=== PATIENT | male | born 1975 | race Caucasian/White ===

== ENCOUNTER 2023-07-24 03:56 | Emergency (ER) | payer OTHER ==
[~2023-07-24] VITALS: Ht 177.8 cm; Wt 130.0 kg
[~2023-07-24 03:56] MED LIST: GUAIATUSSIN AC10 ML PO; IBUPROFEN400 MG PO; IBUPROFEN600 MG PO
[2023-07-24 04:12] LABS: BASOPHILS 1.1 % (0-2); EOSINOPHILS 2.6 % (0-6); HEMATOCRIT 44.8 % (35.0-50.0); HEMOGLOBIN 13.9 g/dL (12.0-18.0); MCH 22.2 (27-36); MCV 71.6 fl (81-99); MONOCYTES 0.9 % (0-12); NEUTROPHILS 49.4 % (39-80); PLATELET COUNT 291 K/uL (140-440); RBC 6.27 M/ul (4.3-5.7); RDW 16.6 (10.5-15.0)
[2023-07-24 04:32] LABS: ALBUMIN 4.1 g/dL (3.4-5.0); ALBUMIN/GLOBULIN RATIO 0.82 (1.1-2.4); BILIRUBIN, TOTAL 0.4 ng/dL (0.2-1.0); BUN/CREATININE RATIO 13.51 (6.0-28.6); CALCIUM 9.1 mg/dL (8.5-10.1); CREATININE, SERUM 1.11 mg/dL (0.70-1.30); PROTEIN, TOTAL 9.1 g/dL (6.4-8.2)
[2023-07-24 04:56] LABS: INFLUENZA B NAA NEGATIVE (NEGATIVE); RESPIRATORY SYNCYTIAL VIR NAA NEGATIVE (NEGATIVE)
[2023-07-24] MEDS ORDERED: METOPROLOL TARTRATE 5 MG/5 ML VIAL IV ONE ×2 (06:00→06:15)
[2023-07-24] MEDS ORDERED: METOPROLOL SUCC25 MG PO (06:18)
[2023-07-24 06:37] VITALS: BP 113/68
--- NOTE | 2023-07-24 14:07 | EKG ---
[facility] [address] [facility] [address] [facility] [place] [address] Signed Sinus tachycardia Nonspecific ST abnormality Abnormal ECG When compared with ECG of 31-JAN-2016 07:05, Vent. rate has increased BY [address] now depressed in Lateral leads Confirmed by Jessika Aguila ([id number]) on 07/24/2023 2:07:13 PM Electronically Signed By: JESSIKA AGUILA MD 07/24/23 1407 PATIENT NAME: NANCY HI MATTHEW Electrocardiogram DATE OF : 75 PHYSICIAN: JESSIKA AGUILA MD REPORT #: [id number] REPORT IS CONFIDENTIAL AND NOT TO BE RELEASED WITHOUT AUTHORIZATION
== END 2023-07-24 06:37 | disposition home or self-care (01) ==
LOC: ED 03:56
PROVIDERS: Family Medicine
DX: R00.2 Palpitations (principal); R00.0 Tachycardia, unspecified; F17.200 Nicotine dependence, unspecified, uncomplicated; Z11.52 Encounter for screening for COVID-19
CPT/HCPCS: 36415; 71045; 71260; 80053; 84443; 84484; 85025; 85379; 87502; 93005; 93010; 99285-25; Q9967; U0002

== ENCOUNTER 2023-08-15 20:32 | Inpatient (IN) | payer OTHER ==
[~2023-08-15] VITALS: Ht 177.8 cm; Wt 128.6 kg
[~2023-08-15 20:32] MED LIST changes: +METOPROLOL SUCC25 MG PO
--- OUTSIDE RECORDS SUMMARY | 2023-08-15 20:39 | XMS ---
PreManage Notification: NANCY HI Security [employer] Events No recent Security Events currently on file CRITERIA MET - [facility] - 2 Visits in 30 Days CARE PROVIDERS LELE PALUMBO [facility] Current PHONE: Unknown Jimbo has no Care Guidelines for this patient. E.Gabriella VISIT COUNT (12 MO.) 2 [facility] TOTAL 2 NOTE: Visits indicate total known visits. ED/UCC VISIT TRACKING (12 MO.) 08/15/2023 20:33 [facility] TYPE: Emergency COMPLAINT: - ABDOMINAL PAIN 07/24/2023 03:56 [facility] TYPE: Emergency COMPLAINT: - SOB DIAGNOSES: - Encounter for screening for COVID-19 - Nicotine dependence, unspecified, uncomplicated - Palpitations - Shortness of breath - Tachycardia, unspecified INPATIENT VISIT TRACKING (12 MO.) No inpatient visits to display in this time frame [email or web address]
[2023-08-15 20:56] LABS: BASOPHILS 0.7 % (0-2); HEMATOCRIT 42.1 % (35.0-50.0); HEMOGLOBIN 13.2 g/dL (12.0-18.0); MCH 21.9 (27-36); MCHC 31.3 g/dl (30-36); MONOCYTES 9.5 % (0-12); NEUTROPHILS 67.8 % (39-80); PLATELET COUNT 307 K/uL (140-440); RBC 6.01 M/ul (4.3-5.7); RDW 16.8 (10.5-15.0)
[2023-08-15 21:11] LABS: ALBUMIN/GLOBULIN RATIO 0.85 (1.1-2.4); ANION GAP 14.7 (7-21); BILIRUBIN, TOTAL 0.4 ng/dL (0.2-1.0); BUN/CREATININE RATIO 14.28 (6.0-28.6); CREATININE, SERUM 1.05 mg/dL (0.70-1.30); POTASSIUM 3.7 mmol/L (3.5-5.1); PROTEIN, TOTAL 8.7 g/dL (6.4-8.2)
[2023-08-15] MEDS ORDERED: FAMOTIDINE 20 MG/ 2 ML VIAL IV SCH (22:02)
[2023-08-15] MEDS ORDERED: PIPERACILLIN/TAZOBACTAM 4.5 GM VIAL ONE (22:08)
[2023-08-15] MEDS ORDERED: ondansetron HCL 4 MG/2 ML VIAL IV PRN (22:15)
[2023-08-15] MEDS ORDERED: DEXTROSE 5% - LACTATED RINGERS 1,000 ML IV SCH (22:15)
[2023-08-15] MEDS ORDERED: MORPHINE SULFATE 4 MG/ML VIAL IV PRN (22:15)
[2023-08-15] MEDS ORDERED: PIPERACILLIN/TAZOBACTAM 4.5 GM in DEXTROSE 5% 100 ML IV ONE (22:15)
[2023-08-15] MEDS ORDERED: ACETAMINOPHEN 325 MG TAB PO PRN (22:15)
[2023-08-15 22:59] VITALS: BP 133/75
--- NOTE | 2023-08-15 23:31 | NUR ---
PT TO FLOOR WITH ED RN VIA STRETCHER. PT ABLE TO TRANSFER SELF TO BED. BEDSIDE REPORT RECEIVED. PT ALERT AND ORIENTED. TELE #7 PLACED. PT DENIES PAIN OR NAUSEA. REPORTS "PRESSURE" NEAR UMBILICAL ABSCESS. SMALL AMOUNT SEROSANG DRAINAGE NOTED. ABDOMINAL REDNESS AND WARMTH NOTED AND OUTLINED. TEMP ELEVATED. PRN TYLENOL ADMIN WITH SIPS OF WATER. PT ORIENTED TO ROOM AND NURSE CALL LIGHT. DENIES QUESTIONS OR CONCERNS. CALL LIGHT IN REACH.
--- NOTE | 2023-08-16 00:48 | NUR ---
IV PUMP ALARMING. ISSUE RESOLVED. TEMP 99.6. SIGNIFICANT OTHER IN THE ROOM TO STAY THE NIGHT. LINENS AND PILLOW PROVIDED. NO FURTHER NEEDS.
[2023-08-16 02:56] LABS: BILIRUBIN, URINE NEGATIVE (negative); BLOOD/HGB, URINE NEGATIVE (Negative); KETONE, URINE NEGATIVE (Negative); LEUK ESTERASE, URINE NEGATIVE (negative); NITRITE, URINE NEGATIVE (negative)
[2023-08-16 03:08] VITALS: BP 122/78
--- NOTE | 2023-08-16 03:09 | NUR ---
VS OBTAINED. PT UP TO BR TO VOID 450 ML YELLOW URINE. MODERATE AMOUNT PURULENT FOUL SMELLING DRAINAGE NOTED FROM UMBILICUS WHILE VOIDING. PT BACK TO BED. SKIN CARE COMPLETE. GAUZE AND TAPE PLACED OVER UMBILICUS. REDNESS REMAINS WITHIN OUTLINE ON LOWER ABD. PT DENIES PAIN. UA SENT TO LAB. NO FURTHER NEEDS.
[2023-08-16] MEDS ORDERED: PIPERACILLIN/TAZOBACTAM 4.5 GM VIAL ONE (03:15)
--- NOTE | 2023-08-16 03:48 | NUR ---
IV PUMP ALARMING. ISSUE RESOLVED. IV ABX INFUSING PER ORDER. PT DENIES NEEDS.
[2023-08-16] MEDS ORDERED: PIPERACILLIN/TAZOBACTAM 4.5 GM in DEXTROSE 5% 100 ML IV SCH (04:00)
[2023-08-16 04:59] VITALS: BP 122/71
[2023-08-16 05:16] LABS: BASOPHILS 0.7 % (0-2); HEMATOCRIT 37.3 % (35.0-50.0); HEMOGLOBIN 11.8 g/dL (12.0-18.0); LYMPHOCYTES 22.9 % (24-44); MCH 22.1 (27-36); MCHC 31.6 g/dl (30-36); MCV 69.7 fl (81-99); MONOCYTES 9.9 % (0-12); NEUTROPHILS 64.5 % (39-80); PLATELET COUNT 258 K/uL (140-440); RBC 5.35 M/ul (4.3-5.7); RDW 16.3 (10.5-15.0)
[2023-08-16 05:36] LABS: ALBUMIN 3.4 g/dL (3.4-5.0); ALBUMIN/GLOBULIN RATIO 0.83 (1.1-2.4); ANION GAP 14.7 (7-21); BILIRUBIN, TOTAL 0.6 ng/dL (0.2-1.0); BUN/CREATININE RATIO 11.34 (6.0-28.6); CALCIUM 8.7 mg/dL (8.5-10.1); CREATININE, SERUM 0.97 mg/dL (0.70-1.30); POTASSIUM 3.7 mmol/L (3.5-5.1); PROTEIN, TOTAL 7.5 g/dL (6.4-8.2)
--- NOTE | 2023-08-16 07:05 | NUR ---
Pt report received from BRIJESH Mayer
--- NOTE | 2023-08-16 07:36 | NUR ---
Board has been updated and call light has been placed within reach. No request from patient at this time
[2023-08-16 09:13] VITALS: BP 125/71
--- NOTE | 2023-08-16 10:59 | NUR ---
In with pt for IV med administration. Pt is asleep, snoring quietly, breathing regular and even, non-labored, supine in bed. Pt's girlfriend is asleep, prone, on the couch in the room. Blankets provided to the pt's girlfriend. IV fluids being administered per emar. Side rails up x2, call light in reach. IV is patent with good return.
--- NOTE | 2023-08-16 11:01 | NUR ---
Pt reports he has been feeling constipated lately. He states he feels like he needs to have a BM but is afraid to push at all. He doesn't feel like he could go without pushing/straining.
--- NOTE | 2023-08-16 11:33 | NUR ---
Dr. Rice in with pt for assessment. Questions answered.
[2023-08-16] MEDS ORDERED: METOPROLOL TARTRATE 25 MG TAB PO SCH (12:00)
[2023-08-16] MEDS ORDERED: LACTATED RINGER'S 1,000 ML IV SCH ×2 (12:00→12:15)
[2023-08-16] MEDS ORDERED: PROCHLORPERAZINE EDISYLATE 10 MG/2 ML VIAL IV PRN (12:00)
[2023-08-16] MEDS ORDERED: KETOROLAC TROMETHAMINE 30 MG/ML VIAL IV PRN (12:00)
[2023-08-16] MEDS ORDERED: ondansetron HCL 4 MG/2 ML VIAL IV PRN (12:00)
--- NOTE | 2023-08-16 12:06 | NUR ---
Pt up to shower. IV site wrapped to reduce risk of moisture, IV abx running per emar. Encouraged pt and his girlfriend to call if they need help.
[2023-08-16] MEDS ORDERED: POLYETHYLENE GLYCOL 3350 BOTTLE PO ONE (13:00)
[2023-08-16] MEDS ORDERED: ACETAMINOPHEN 500 MG TAB PO PRN (13:15)
[2023-08-16] MEDS ORDERED: IBUPROFEN 600 MG TAB PO PRN (13:15)
--- NOTE | 2023-08-16 13:23 | NUR ---
MED REC COMPLETE
[2023-08-16 13:34] VITALS: BP 130/84
--- NOTE | 2023-08-16 15:05 | HP ---
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 In the past 24 hours, he had purulent discharge from his umbilicus with erythema. He did have chills, but no actual temperature elevation that he is aware of. He had chills and other vague symptoms approximately two weeks ago and presents to the emergency room where he had no drainage from his umbilicus. On did undergo evaluation to rule out pulmonary embolism (which was negative). The patient proceeded to work yesterday morning without problem, but when sitting down did have sudden egress of purulence from the umbilicus. He presented to the emergency room at approximately 10:40 p.m. and evaluated by Dr. Fiore, whose findings showed mild erythema around the umbilicus with egress of purulent material. A CT scan was performed which showed a thick walled gas containing cystic mass in the anterior superior bladder wall extending to the umbilicus approximately 7 cm in size. There was moderate adjacent inflammatory stranding involving possible adjacent sigmoid colon. There was suspicion for infected urachal cyst anomaly versus urachal carcinoma. The patient has had no hematuria and quite notably his urinalysis was normal. He denies any prior history of diverticulitis or diverticular type symptoms. He has no family history of colon cancer or inflammatory bowel disease. Associated lab evaluation showed a white count of only 11.7, hematocrit normal at 42.1, and Chem profile otherwise normal. He was begun on Zosyn antibiotic and admitted to my service for further evaluation and care. He currently feels reasonably well. He has had some minimal drainage from the umbilicus. He has no current chills, though his temperature was as high as 101. PAST MEDICAL HISTORY: Notable for hypertension for which he has taken metoprolol. He had no abdominal surgery. He does smoke on a daily basis. PHYSICAL EXAMINATION: GENERAL: A pleasant, obese white man who is accompanied by his girlfriend. VITAL SIGNS: Height is 5 feet 10 inches, weight is 128.6 kg with a BMI of 40.7. HEENT: Mucous membranes are moist. Trachea is midline. Electronically Signed By: FLORENTINO OCAMPO MD 08/16/23 1505 PATIENT NAME: NANCY HI HISTORY AND PHYSICAL DATE OF : 75 REPORT #: [id number] PHYSICIAN: FLORENTINO OCAMPO MD PCP: NO PRIMARY CARE PHYSICIAN REPORT IS CONFIDENTIAL AND NOT TO BE RELEASED WITHOUT AUTHORIZATION [facility] [address] [place], [place] [address] Signed CHEST: Clear. HEART: Regular without murmur. ABDOMEN: Obese, but soft. At the umbilicus there is a bandage with some foul appearing mucoid material. There is minimal erythema. He does not have generalized peritonitis. There is no palpable mass of the abdomen. EXTREMITIES: Show no clubbing, cyanosis, or edema. He does not have SCDs on. LABORATORY DATA: His presentation white count was 11.7, white count this morning is 7.9, hematocrit is 37.3, previously 42.1, platelets are normal at 258,000. Chem profile is essentially normal. Creatinine improved from 1.05 to 0.97. Liver enzymes normal. Urinalysis was normal. I have reviewed the CT scan in detail including AP, lateral, and transverse images. It appears likely that he has a urachal cyst abnormality as was postulated, but quite clearly a connection to the sigmoid colon as well. 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 He is not known to have had diverticulitis in the past and distinctly see diverticulosis particularly. The possibility of malignancy presenting as an erosion in this setting is uncommon but not impossible of course. Online review does describe a phenomenon of a similar type from the past, in the case it was well described. At this point, I would recommend a complete bowel prep and colonoscopy to assure there is no actual neoplastic process of the colon accounting for this. The possibility of a malignant urachal cyst with secondary involvement of colon nearby is also consideration, though also quite rare and unlikely. There is no need at the moment for incision and drainage of undrained purulence. Egress from the umbilicus may well represent stool itself. Bowel prep will more definitively clarify that issue of course. I explained all of this to the patient and his girlfriend, who attends to him using the whiteboard and so forth. The risk of bleeding, infection, perforation, and so forth related to colonoscopy is reviewed as well. MD GERALD Do/NITO Electronically Signed By: FLORENTINO OCAMPO MD 08/16/23 1505 PATIENT NAME: NANCY HI HISTORY AND PHYSICAL DATE OF : 75 REPORT #: [id number] PHYSICIAN: FLORENTINO OCAMPO MD PCP: NO PRIMARY CARE PHYSICIAN REPORT IS CONFIDENTIAL AND NOT TO BE RELEASED WITHOUT AUTHORIZATION [facility] [address] [place] [address] Signed /[id number] cc: Dr. Fiore Copies: ~ Electronically Signed By: FLORENTINO OCAMPO MD 08/16/23 1505 PATIENT NAME: NANCY HI HISTORY AND PHYSICAL DATE OF : 75 REPORT #: [id number] PHYSICIAN: FLORENTINO OCAMPO MD PCP: NO PRIMARY CARE PHYSICIAN REPORT IS CONFIDENTIAL AND NOT TO BE RELEASED WITHOUT AUTHORIZATION
[2023-08-16] MEDS ORDERED: PIPERACILLIN/TAZOBACTAM 3.375 GM in DEXTROSE 5% 100 ML IV SCH (16:00)
[2023-08-16 18:15] VITALS: BP 130/77
--- NOTE | 2023-08-16 19:41 | NUR ---
REPORT RECEIVED FROM DAY SHIFT RN. PT LYING IN BED ALERT AND ORIENTED. DENIES NEEDS. WHITE BOARD UPDATED. CALL LIGHT IN REACH.
[2023-08-16] MEDS ORDERED: FAMOTIDINE 20 MG/ 2 ML VIAL IV SCH (21:00)
[2023-08-16 22:17] VITALS: BP 114/83
--- NOTE | 2023-08-16 22:27 | NUR ---
EVENING ASSESSMENT COMPLETE. SCHEDULED MEDS ADMIN PER EMAR. PT REPORTS ABD PAIN TOLERABLE. DENIES NAUSEA. VS AND I&O OBTAINED, WNL. PT CONTINUES WITH LOOSE LIGHT BROWN BM. DRESSING TO UMBILICUS CDI. PT REPORTS DECREASED DRAINAGE THIS EVENING. ABD REDNESS WITHIN PREVIOUS OUTLINE. CLEAR LIQUIDS PROVIDED. PT VERBALIZES UNDERSTANDING REGARDING NPO AFTER MN. PT DENIES QUESTIONS OR CONCERNS. CALL LIGHT IN REACH.
--- NOTE | 2023-08-17 00:20 | NUR ---
PT RESTING WITH EYES CLOSED. RESPIRATIONS EVEN. LIQUIDS REMOVED FROM BEDSIDE TABLE FOR UPCOMING PROCEDURE. S/O RESTING ON COUCH. CALL LIGHT IN REACH.
--- NOTE | 2023-08-17 02:31 | NUR ---
PT RESTING WITH EYES CLOSED. RESPIRATIONS EVEN. CALL LIGHT IN REACH.
--- NOTE | 2023-08-17 03:34 | NUR ---
PT RESTING IN BED WITH EYES CLOSED. RESPIRATIONS EVEN. CALL LIGHT IN REACH.
[2023-08-17 06:35] VITALS: BP 129/82
--- NOTE | 2023-08-17 06:55 | NUR ---
PT UP TO BR TO VOID AND HAVE LIQUID BROWN BM. PT REPORTS INCREASED DRAINAGE FROM UMBILICUS DURING VOIDING. BACK TO BED. NEW DRESSING PLACED OVER UMBILICUS. LOWER ABD REDNESS REMAINS WELL WITHIN OUTLINE. PT REPORTS ABD PAIN /10. PRN FOR PAIN ADMIN PER EMAR. IV ABX INFUSING PER ORDER. VS AND I&O OBTAINED. PT REMAINS NPO FOR PROCEDURE. DENIES FURTHER NEEDS. CALL LIGHT IN REACH.
--- NOTE | 2023-08-17 07:10 | NUR ---
REPORT RECEIVED FROM TRENTON SHIFTRMindy DELGADO. PATIENT IS LYING IN BED AND WATCHING TV AT THISTIME. PATIENTS GIRLFRIEND IS LYING ON THE COUCH. PATIENT AND FAMILY STATED NO FURTHER NEEDS, CALL LIGHT AND PERSONAL BELONGINGS ARE WITHIN.
--- NOTE | 2023-08-17 08:10 | NUR ---
0900 MEDICATIONS ADMINISTERED PER THE EMAR. PATIENT IS LYING IN BED WITH HOB ELEVATED AND WATCHING TV. PATIENT GIRLFRIEND IS RESTING ON THE COUCH WITH EYES CLOSED AND RESPIRATIONS ARE EVEN AND UNLABORED. FULL ASSESSMENT COMPLETE AND DOCUMENTED IN THE CHART. PATIENT IS ALERT AND ORIENTED TIMES FOUR. LUNG SOUNDS ARE CLEAR IN ALL LUNG KUMAR BILATERALLY, THE PATIENT IS ON RA. CARDIAC WITH NORMAL S1 AND S2 ON AUSCULTATION. PATIENT HAS BEEN NPO SINCE MIDNIGHT. LAST BOWEL MOVEMENT WAS ON 08/16/23. BOWEL TONES ARE ACTIVE IN ALL FOUR QUADRANTS. GAUZE DRESSING WITH FOAM TAPE OVER THE UMBILICUS IS CLEAN, DRY, AND INTACT. NO DRAINAGE NOTED. PATIENT WITH PAIN RATED 3/10 AT THE ABDOMEN AFTER RECEIVING PRN PAIN MEDICATION AROUND 0600. PATIENT IS NOT REQUESTING ANY PAIN MEDICATION AT THIS TIME. IV SITE IS CLEAN, DRY, AND INTACT. IV FLUSHED WITH 10 ML NORMAL SALINE. PATIENT STATED NO FURTHER NEEDS AT THIS TIME. CALL LIGHT AND PERSONAL BELONGINGS ARE WITHIN REACH.
--- NOTE | 2023-08-17 08:27 | NUR ---
Board has been updated and call light has been placed within reach
[2023-08-17 10:12] VITALS: BP 119/86
[2023-08-17 10:25] VITALS: BP 119/86
--- NOTE | 2023-08-17 11:33 | NUR ---
PATIENT IS SLEEPING. THE TAPPER BIT IS UNABLE TO DO THE TAPPER BIT'S ASSESSMENT AT THIS TIME. THE TAPPER BIT WILL RETURN LATER TODAY.
--- NOTE | 2023-08-17 11:34 | NUR ---
PT ASLEEP IN BED WITH RESPIRATIONS EVEN AND UNLABORED. SO AT BEDSIDE AND CALL LIGHT WITHIN REACH.
--- NOTE | 2023-08-17 12:24 | NUR ---
PT RECEIVING NURSING CARE DURING SPIRITUAL CARE ROUNDS. DI DNOT INTERRUPT. PROVIDED PRAYER.
--- NOTE | 2023-08-17 12:40 | NUR ---
SPOKE TO PATIENT ABOUT THE DISCHARGE PLAN. PATIENT PLANS TO GO HOME TO HIS HOUSE THAT HE SHARES WITH HIS LIFE PARTNER, SERJIO. PATIENT'S DEMOGRAPHICS ARE CORRECT. PATIENT DOES NOT USE DME. PATIENT CAN DO HIS OWN ADLS AND STILL DRIVES A CAR.PATIENT HAS FRIENDS AND FAMILY THAT CAN HELP NEEDED. PATIENT DOES NOT HAVE ANY DISCHARGE NEEDS AT THIS TIME.
--- NOTE | 2023-08-17 12:46 | NUR ---
PT AWAKE IN BED, STATES NO NEEDS AT THIS TIME, FAMILY AT THE BEDSIDE. CALL LIGHT WITHIN REACH.
[2023-08-17 13:17] VITALS: BP 133/81
--- NOTE | 2023-08-17 13:52 | NUR ---
UR CLINICAL REVIEW: [facility] GENERAL SURGERY [facility] INPATIENT 08/16/23 @ 1154 CLINICALS SENT FOR REVIEW DISCHARGE TO HOME WHEN STABLE. 08/20/23
--- NOTE | 2023-08-17 13:59 | NUR ---
PATIENT IS LYING IN BED AND ON THEIR PHONE. PATIENT GIRLFRIEND IS AT THE BEDSIDE. CALL LIGHT AND PERSONAL BELONGINGS ARE WITHIN REACH.
--- NOTE | 2023-08-17 14:47 | NUR ---
PATIENT LEFT THE MEDICAL SURGICAL FLOOR BY STRETCHER WITH OR NURSE AND PATIENT GIRLFRIEND.
[2023-08-17] MEDS ORDERED: MIDAZOLAM HCL 5 MG/5 ML VIAL ONE (15:08)
[2023-08-17] MEDS ORDERED: fentaNYL citrate 100 MCG/2 ML VIAL ONE (15:08)
--- NOTE | 2023-08-17 15:25 | NUR ---
PATIENT OFF THE FLOOR AT THIS TIME.
[2023-08-17 15:30] VITALS: BP 125/69
--- NOTE | 2023-08-17 15:57 | NUR ---
08/17/23 Esequiel7 Mihaela Paez 1546- PT PRESENTS TO PACU, SEMI STROUD LEFT LATERAL POSITION. AWAKE BUT DROWSY, C/O FEELING GASSY BUT DENIES PAIN AND NAUSEA. BREATHING EVEN AND NON LABORED, 3L O2 PER NC. LR INFUSING TO RAC IV. ABD ROUND AND FIRM, NON DISTENDED. PT PASSING GAS, ENCOURAGED TO CONTINUE. ALL MONITORS IN PLACE. NO SIGNS OF DISTRESS. 1554- PT MOVED TO ROOM AIR AT THIS TIME, WILL CONTINUE TO MONITOR.
--- NOTE | 2023-08-17 16:20 | NUR ---
PATIENT RETURNED TO THE MEDICAL SURGICAL FLOOR WITH OR NURSE. ASSESSMENT COMPLETE. PATIENT WITH PAIN RATED 3/10 IN THE ABDOMEN. PATIENT IS NOT REQUESTING PAIN MEDICATION AT THIS TIME. PATIENT IS ALERT AND ORIENTED TIMES FOUR. LUNG SOUNDS ARE CLEAR IN ALL LUNG KUMAR BILATERALLY. PATIENT IS ON ROOM AIR WITH A CPOX AT THE BEDSIDE. CARDIAC WITH NORMAL S1 AND S2 ON AUSCULTATION. BOWEL TONES ARE ACTIVE IN ALL FOUR QUADRANTS. PATIENT IS ON A CLEAR LIQUID DIET. LR IS INFUSING AT 100 ML/HR AND CEFEPIME IS INFUSING AT 25 ML/HR. PATIENT GIRLFRIEND IS AT THE BEDISDE. DRESSING OVER THE UMBILICUS WITH GAUZE AND FOAM TAPE. DRESSING IS CLEAN DRY AND INTACT. IV SITE FLUSHED WITH 10 ML NORMAL SALINE. IV DRESSING IS CLEAN, DRY, AND INTACT. PATIENT GIVEN APPLE JUICE. PATIENT AND FAMILY STATED NO FURTHER NEEDS AT THIS TIME. CALL LIGHT AND PERSONAL BELONGINGS ARE WITHIN REACH.
[2023-08-17] MEDS ORDERED: metroNIDAZOLE 250 MG TAB PO SCH (19:00)
[2023-08-17] MEDS ORDERED: NEOMYCIN SULFATE 500 MG TAB PO SCH (19:00)
--- NOTE | 2023-08-17 19:26 | NUR ---
MEDICATION ORDERED CLARIFIED WITH . TELEPHARMACY NOTIFIED OF ORDER. NO FURTHER QUESTIONS OR CONCERNS REGARDING THE ORDER INPUT BY . CALL ENDED.
--- NOTE | 2023-08-17 19:39 | NUR ---
Pt in bed, no c/o pain, room air, cooperative with assessment. IVF infusing RAC positional, float nurse in room to start a second site. Large abd, soft, lightly tender at L lower abd. umbilical area dressing in place, decreaesd redness and erythem from abd. Pt requesting a shower, aware of NPO after midnight. female friend in room.
--- NOTE | 2023-08-17 20:13 | NUR ---
20G, 1.75" USIV PLACED IN LFA, 0.5CM IN DEPTH. 1 ATTEMPT, GOOD BLOOD RETURN, FLUSHED WELL. PT TOLERATED WELL. PT UP TO SHOWER. CLEAN LINENS AND GOWN PROVIDED. PT IN ROOM. PT STATES NO OTHER NEEDS AT THIS TIME. CALL LIGHT IN REACH.
[2023-08-17 20:46] VITALS: BP 132/73
--- NOTE | 2023-08-17 20:58 | NUR ---
VS AND I&O OBTAINED. SCHEDULED MEDS ADMIN PER EMAR. PT REPORTS ABD PAIN 06/09. PRN FOR PAIN ADMIN PER EMAR. NO FURTHER NEEDS AT THIS TIME. CALL LIGHT IN REACH.
--- NOTE | 2023-08-17 21:30 | NUR ---
Pt showered earlier, in bed, room air, cpox in place, no c/o pain, abd dressing in place CDI, replaced earlier after shower by Float RN.
--- NOTE | 2023-08-17 23:18 | NUR ---
AWAKE, WATCHNG TV, VISITING WITH FMILY, IVF INFUSING, TOOK SECOND DOSE OF FLAGYL AND NEOMYCIN
[2023-08-18] VITALS (9 sets, daily range): BP systolic 111–127; BP diastolic 63–85
--- NOTE | 2023-08-18 00:57 | NUR ---
PT AWAKENS EASILY, NO C/O PAIN. IVF INFUSING. ABD DRESSING IN PLACE. TOOK 3RD DOSAGE OF PO NEOMYCIN AND FLAGYL PO. NPO AT THIS TIME. PT AWARE. ORAL SWABS AT BEDSIDE. TURNS AND REPOSITIONS SELF IN BED
--- NOTE | 2023-08-18 02:42 | NUR ---
Resting, eyes closed, no s/sx distress, turns and repositions self . IVF infusing, no s/sx adverse reaction to po/IV abx. NPO for am procedure
--- NOTE | 2023-08-18 03:58 | NUR ---
Resting, eys closed, IVF infusing, turns and repositions self. no s/sx pain
--- NOTE | 2023-08-18 04:48 | NUR ---
Pt has slept well this shift, was medicated x1 with motrin, per abd pain, effective. on room air, clear lungs, abd large, decreaed redness and edema. low mid umbilical area with moderate ss/creamy drainage present. red at site dressing changed with gauze and tape. cooperative. Up to BRP, SBA, voided and had a liquid bm. NPO does own oral care. IVF infusing
--- NOTE | 2023-08-18 06:13 | NUR ---
c/o abd pain 07/09 medicated with Toradol IV. IVF infusing. NPO
--- NOTE | 2023-08-18 07:08 | NUR ---
BEDSIDE REPORT RECEIVED FROM BRIJESH ESCALANTE. PT RESTS IN BED WITH EYES CLOSED, RESP EVEN AND UNLABORED. SIGNIFICANT OTHER IN ROOM AT BEDSIDE.
--- NOTE | 2023-08-18 07:23 | NUR ---
PATIENT IN BED AT THIS TIME. CALL LIGHT WITHIN REACH, NO FURTHER NEEDS AT THIS TIME.
[2023-08-18] MEDS ORDERED: KETOROLAC TROMETHAMINE 30 MG/ML VIAL ONE (09:12)
[2023-08-18] MEDS ORDERED: ROCURONIUM BROMIDE 50 MG/5 ML SYR ONE ×3 (09:12→15:14)
[2023-08-18] MEDS ORDERED: DEXAMETHASONE SOD PHOS 4 MG/ML VIAL ONE ×4 (09:12→15:19)
[2023-08-18] MEDS ORDERED: LIDOCAINE HCL 1% 30 ML SDV ONE ×2 (09:14→12:37)
[2023-08-18] MEDS ORDERED: dexmedeTOMIDine HCl 200 MCG/2 ML VIAL ONE (09:14)
[2023-08-18] MEDS ORDERED: ondansetron HCL 4 MG/2 ML VIAL ONE (09:14)
[2023-08-18] MEDS ORDERED: KETAMINE in NS 50 MG/5 ML SYR ONE (09:15)
[2023-08-18] MEDS ORDERED: propofoL 200 MG/20 ML VIAL ONE (09:16)
--- NOTE | 2023-08-18 09:45 | NUR ---
PT LEAVES MED-SURG TO SURGERY VIA GURFRED WITH BRIJESH BENDER.
--- NOTE | 2023-08-18 10:08 | NUR ---
IN OR AT THIS TIME.
[2023-08-18] MEDS ORDERED: MIDAZOLAM HCL 2 MG/2 ML VIAL ONE (10:26)
[2023-08-18] MEDS ORDERED: ACETAMINOPHEN 1,000 MG/100 ML VIAL ONE (10:48)
[2023-08-18] MEDS ORDERED: ePHEDrine sulfate 50 MG/ML AMP ONE (11:20)
[2023-08-18] MEDS ORDERED: LACTATED RINGER'S 1,000 ML IV ONE ×3 (11:40→15:12)
[2023-08-18] MEDS ORDERED: LIDOCAINE HCL 2% 5 ML SDV ONE (12:13)
[2023-08-18] MEDS ORDERED: SODIUM CHLORIDE 0.9% 40 ML IV ONE (12:13)
[2023-08-18] MEDS ORDERED: Ropivacaine HCl 0.5% 30 ML VIAL ONE ×2 (12:13→15:18)
[2023-08-18] MEDS ORDERED: fentaNYL citrate 100 MCG/2 ML VIAL ONE (13:11)
[2023-08-18] MEDS ORDERED: MAGNESIUM SULFATE 1 GM/2 ML VIAL ONE (13:29)
[2023-08-18] MEDS ORDERED: SODIUM CHLORIDE 0.9% 20 ML IV ONE (15:19)
[2023-08-18] MEDS ORDERED: SUGAMMADEX SODIUM 200 MG/2 ML ML ONE (15:28)
[2023-08-18] MEDS ORDERED: MORPHINE SULFATE 10 MG/ML VIAL IV PRN (16:30)
[2023-08-18] MEDS ORDERED: ACETAMINOPHEN 500 MG TAB PO PRN (16:30)
[2023-08-18] MEDS ORDERED: IBUPROFEN 600 MG TAB PO PRN (16:30)
[2023-08-18] MEDS ORDERED: OXYCODONE/APAP 7.5/325 TAB PO PRN (16:30)
--- NOTE | 2023-08-18 16:38 | NUR ---
08/18/23 1638 Joaquina Bird 1611- PT ARRIVES TO PACU NONAROUSABLE TO STIMULI WITH AN OPA IN PLACE. RESP EVEN AND UNLABORED. OXYGEN SAT HIGH 90'S TO 100% ON 8L VIA MASK. RED TINGED URINE IN THE COLLINS TUBING. DR. OCAMPO STATES TO EXPECT THIS. MABLE DRAIN HAS MINIMAL SEROSANGENOUS DRAINAGE. 1613- PT HAS NOISY RESPIRATIONS. PT'S MOUTH SUCTION FOR SECRETIONS AND JAW LIFT PERFORMED. THIS CLEARS THE SOUND. RESP EVEN AND UNLABORED. OXYGEN SAT HIGH 90'S TO 100% ON 8L VIA MASK. 1618- ABD BINDER PLACED ON PT PER DR. OCAMPO ORDER. PLACED WITH ASSISTANCE X3 STAFF MEMBERS. 1621- PT WAKING UP ON HIS OWN. PT ABLE TO FOLLOW COMMANDS AND OPA REMOVED. OXYGEN MASK REPLACED AT 8L. 1623- DR. OCAMPO AT THE BEDSIDE TO TALK WITH THE PT. 1625- PT REPORTS NO PAIN OR NAUSEA AT THIS TIME. STATES HE NEEDS TO "URINATE". UPDATED PT THAT HE HAS A COLLINS CATHETER IN PLACE. CATHETER IS DRAINING RED TINGED URINE WITH NO CLOTS NOTED.
[2023-08-18] MEDS ORDERED: PROCHLORPERAZINE EDISYLATE 10 MG/2 ML VIAL IV PRN (16:45)
[2023-08-18] MEDS ORDERED: fentaNYL citrate 50 MCG/ML SDV IV PRN (16:45)
[2023-08-18] MEDS ORDERED: IBLOOD GLUCOSE TEST STRIP 1 EA TEST VI PRN (16:45)
[2023-08-18] MEDS ORDERED: HYDROmorphone HCL 1 MG/ML SYR IV PRN (16:45)
[2023-08-18] MEDS ORDERED: droPERidol 5 MG/2 ML VIAL IV PRN (16:45)
[2023-08-18] MEDS ORDERED: NALOXONE HCL 0.4 MG SYR IV PRN (16:45)
[2023-08-18] MEDS ORDERED: ondansetron HCL 4 MG/2 ML VIAL IV PRN (16:45)
--- NOTE | 2023-08-18 17:15 | NUR ---
PT ARRIVES TO MED SURG AT 1700, ESCORTED BY PERI Shabazz RN. PT AWAKE AND ALERT UPON ARRIVAL. VSS. MABLE DRAIN PRESENT, DRAINS SEROSANGUINEOUS DRAINAGE, ABD BINDER IN PLACE, DRESSING OVER MABLE DRAIN C/D/I. DRESSING OVER INCISIONS X2 INTACT. PACKING NOTED UNDER MIDLINE INCISION. ABDOMEN DISTENDED. COLLINS CATHETER IN PLACE DRAINS CLEAR ORANGE URINE. CONTINUOUS PULSE OXIMETER IN PLACE, PT SATS 95% ON 2L O2 VIA NC. IV IN LFA, INFUSING, DRESSING INTACT, PATENT, NO REDNESS OR LEAKING NOTED. SCDS IN PLACE TO BLE. FAMILY X5 AT BEDSIDE.
--- NOTE | 2023-08-18 19:01 | NUR ---
VSS. PT AWAKE AND ALERT, WATCHES TV, SPOUSE AT BEDSIDE. COLLINS CATHETER CONTINUES TO DRAIN ORANGE URINE. MABLE DRAIN CONTINUES TO DRAIN SEROSANGUINEOUS DRAINAGE, SHADOWING NOTED UNDER MABLE DRESSING, OTHERWISE INTACT. SMALL AMOUNT OF SHADOWING NOTED ON DISTAL PORTION OF MIDLINE INCISION. DRESSINGS OTHERWISE INTACT. ABD BINDER REMAINS IN PLACE. PT DENIES NAUSEA, SOB, CHEST PAIN, AND FLATUS. PT REPORT 10/10 ABD PAIN.
--- NOTE | 2023-08-18 19:20 | NUR ---
REPORT RECEIVED FROM BRIJESH WHITT. pt RESTING IN BED, DROWSY. MORPHINE ADMINISTERED BY DAYSHIFT RN FOR PAIN. pt DENIES ADDITIONAL NEEDS. CALL LIGHT IN REACH. IN ROOM.
--- NOTE | 2023-08-18 20:21 | NUR ---
PATIENTS VITALS TAKEN AND RECORDED. INTAKE AND OUTPUT RECORDED. PATIENTS COLLINS EMPTIED. PATIENT RATES PAIN AT A 5/10 AND DENIES THE NEED FOR PAIN MEDICATION AT THIS TIME. PATIENT DENIES ANY NAUSEA. IV INFUSING PER ORDER. CALL LIGHT IN REACH.
--- NOTE | 2023-08-18 22:20 | NUR ---
CALL LIGHT ANSWERED. pt COMPLAINS OF 10/10 PAIN IN ABD. PRN PAIN MEDICATION ADMINISTERED. ASSESSMENT COMPLETE. MABLE DRAIN STRIPPED, EMPTIED, 30 MLS SANGUINOUS DRAINAGE. COLLINS WITH PINK TINGED URINE DRAINING. COLLINS CARE COMPLETE, EDUCATION PROVIDED. IVF INFUSING WNL. CALL LIGHT IN REACH. IN ROOM. ICE WATER REFILLED AT THIS TIME.
--- NOTE | 2023-08-18 23:50 | NUR ---
IN ROOM FOR ANTIBIOTIC ADMINISTRATION. ANTIBIOTIC INFUSING WNL ORDERED. pt ASSISTED TO AMBULATE IN HALLWAY X 1 LAP, SBA. BACK IN BED. SCDS OFF AT THIS TIME PER pt REQUEST FOR COMFORT. EDUCATION PROVIDED. TITRATED TO RA. VSS. CALL LIGHT IN REACH. JELLO PROVIDED.
[2023-08-19] VITALS (7 sets, daily range): BP systolic 98–121; BP diastolic 62–80
--- NOTE | 2023-08-19 00:22 | NUR ---
CPOX ALARMING, SPO2 <90% WHILE pt SLEEPING. 2L OXYGEN REAPPLIED, SPO2 INCREASES TO WNL. CALL LIGHT IN REACH.
--- NOTE | 2023-08-19 01:21 | NUR ---
PRN PAIN MEDICATION ADMINISTERED FOR 6/10 REPORTED ABDOMINAL PAIN. pt RESTING IN BED, FINISHED TWO JELLOS, DENIES NAUSEA. COLLINS EMPTIED. IV ANTIBIOTIC INFUSING WNL. CALL LIGHT IN REACH.
--- NOTE | 2023-08-19 04:46 | NUR ---
CHECKED ON pt. pt RESTING IN BED AWAKE, UNABLE TO SLEEP DUE TO ABD PAIN, RATES PAIN 4/10. ICE PACK PROVIDED. PRN TORADOL ADMINISTERED. VSS. COLLINS EMPTIED. ASSESSMENT COMPLETE. BOWEL TONES ACTIVE AT THIS TIME. MIN SANGUINOUS DRAINAGE IN MABLE. ABD BINDER IN PLACE. CALL LIGHT IN REACH.
[2023-08-19 06:06] LABS: BASOPHILS 0.3 % (0-2)
[2023-08-19 06:07] LABS: HEMATOCRIT 36.3 % (35.0-50.0); HEMOGLOBIN 11.1 g/dL (12.0-18.0); LYMPHOCYTES 9.1 % (24-44); MCH 21.8 (27-36); MCHC 30.8 g/dl (30-36); MCV 70.9 fl (81-99); MONOCYTES 2.3 % (0-12); NEUTROPHILS 88.3 % (39-80); PLATELET COUNT 248 K/uL (140-440); RBC 5.11 M/ul (4.3-5.7); RDW 16.5 (10.5-15.0)
[2023-08-19 06:14] LABS: ANION GAP 14.9 (7-21); BUN/CREATININE RATIO 11.32 (6.0-28.6); CALCIUM 8.4 mg/dL (8.5-10.1); CREATININE, SERUM 1.06 mg/dL (0.70-1.30); POTASSIUM 4.9 mmol/L (3.5-5.1)
--- NOTE | 2023-08-19 06:58 | NUR ---
pt AWAKE RESTING IN BED, REQUESTING PRN PAIN MEDICATION. ADMINSITERED AT THIS TIME, RATES PAIN 3/10. CLEAR ENSURE PROVIDED WITH PAIN MEDICATIONS. IV ANTIBIOTIC INFUSING WNL. CALL LIGHT IN REACH.
--- NOTE | 2023-08-19 07:14 | NUR ---
BEDSIDE REPORT RECEIVED FROM BRIJESH HUMPHREY. PT AWAKE AND ALERT, WATCHES TV, SPOUSE AT BEDSIDE. NO REQUEST AT THIS TIME.
--- NOTE | 2023-08-19 08:59 | NUR ---
PATIENT IN BED AT THIS TIME. CALL LIGHT WITHIN REACH, NO FURTHER NEEDS AT THIS TIME.
--- NOTE | 2023-08-19 11:05 | OR ---
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 POSTOPERATIVE DIAGNOSIS: Sigmoid diverticulosis, no identifiable connection to urachal cyst (though probably present). No evidence of polyps or malignancy. PROCEDURE: Total colonoscopy to cecum. ANESTHESIA: Intravenous sedation; fentanyl 100 mcg and Versed 8 mg. INDICATION: This 48-year-old man presented to the emergency room yesterday with several hours of putrid drainage from the umbilicus. Evaluation in the emergency room by Dr. Fiore confirmed findings of a urachal cyst most likely as well as adherence of the sigmoid to the area and some air bubbles within the urachal cyst. Extremely putrid drainage was noted from the umbilicus and concern is maintained for possible infected urachal cyst with a possible colonic fistulization to the cyst. It is quite notable that he has no evidence of urinary tract infection on urinalysis. The patient has been treated with IV antibiotics and a complete bowel prep has been undertaken to assess for a colonic neoplasm, which may account for fistulization or other finding to account for the associated proximity of the sigmoid colon to the urachal cystic area which does contain air bubbles. Of note, his bowel prep did not allow for egress of known fecal material from the umbilicus, though still has some minor amount of drainage from it. He does have episodic air via the umbilicus concerning for colonic fistulization to the urachal cyst. He understands the risk of colonoscopy including but not limited to bleeding, infection, and perforation and wished to proceed. FINDINGS: The prep was good overall. Complete colonoscopy was undertaken of the cecum. He had numerous diverticula of the sigmoid and left colon. Abdominal wall palpation in relation to visualization of the colon did show an impression on the colonic wall at one Electronically Signed By: FLORENTINO OCAMPO MD 08/19/23 1105 PATIENT NAME: NANCY HI OPERATIVE REPORT DATE OF : 75 REPORT #: [id number] PHYSICIAN: FLORENTINO OCAMPO MD PCP: NO PRIMARY CARE PHYSICIAN REPORT IS CONFIDENTIAL AND NOT TO BE RELEASED WITHOUT AUTHORIZATION [facility] [address], [place] [address] Signed point, but no distinct connection between the colon and the presumed urachal fist. There is no evidence of neoplasm to be sure. DESCRIPTION OF PROCEDURE: The patient was brought to the endoscopy suite and placed in lateral decubitus position. Given intravenous sedation to the point of slurred speech and nystagmus with full cardiopulmonary monitoring. Digital rectal examination was normal. Additional sedation was given as needed. An Olympus video colonoscope was passed in the rectum and manipulated into the sigmoid where diverticula were immediately noted. The scope was advanced beyond this showing numerous diverticula of the left colon and passed ultimately beyond to the cecum itself. The ileocecal valve and appendiceal orifice were normal. The scope was withdrawn from that point. Careful inspection throughout showed scattered diverticula throughout the colon. Most dominantly the diverticula are in the left colon and some degree in the sigmoid. Abdominal wall palpation at the umbilicus allowed for delineation of the level at which the colon may be most in proximity to the urachal cyst. This was about 30 cm from the anal verge. Further withdrawal showed no other abnormality other than diverticula. The rectum was normal. Scope was removed. The patient was taken to the recovery room in good condition. CONCLUSION DIAGNOSIS: Certainly with a urachal cyst and infection with spontaneous drainage, likely to have a fistulous component of colon to the urachal cyst as there are air bubbles within the cyst. PLAN: Consideration is made for resection of the urachal cyst and segmental resection of the colon with anastomosis. Consideration will be made for this tomorrow after discussing options with patient. Florentino Ocampo MD JM/MODL /[id number] Electronically Signed By: FLORENTINO OCAMPO MD 08/19/23 1105 PATIENT NAME: NANCY HI OPERATIVE REPORT DATE OF : 75 REPORT #: [id number] PHYSICIAN: FLORENTINO OCAMPO MD PCP: NO PRIMARY CARE PHYSICIAN REPORT IS CONFIDENTIAL AND NOT TO BE RELEASED WITHOUT AUTHORIZATION [facility] [address], [place] [address] Signed cc: Otilia Moise MD Copies: ~ Electronically Signed By: FLORENTINO OCAMPO MD 08/19/23 1105 PATIENT NAME: NANCY HI MATTHEW OPERATIVE REPORT DATE OF : 75 REPORT #: [id number] PHYSICIAN: FLORENTINO OCAMPO MD PCP: NO PRIMARY CARE PHYSICIAN REPORT IS CONFIDENTIAL AND NOT TO BE RELEASED WITHOUT AUTHORIZATION
--- NOTE | 2023-08-19 12:52 | NUR ---
PT DENIES NAUSEA OR FLATUS AT THIS TIME. TOLERATING FULL LIQUID DIET WELL AT THIS TIME. IV CONTINUES TO INFUSE IN LFA IV, NO LEAKING, REDNESS OR SWELLING NOTED AT SITE. DRESSING C/D/I. ABDOMINAL BINDER IN PLACE. CALL LIGHT IN REACH NO REQUESTS AT THIS TIME.
--- NOTE | 2023-08-19 13:17 | NUR ---
PATIENT IN BED AT THIS TIME. CALL LIGHT WITHIN REACH, NIO FURTHER NEEDS AT THIS TIME.
--- NOTE | 2023-08-19 15:50 | NUR ---
Spoke with Joselo. He denies needs. Feels ok. Unsure of what he might need for dc. Will fu tomorrow.
--- NOTE | 2023-08-19 18:15 | NUR ---
PATIENT IN BED WATCHING TV AT THIS TIME. VITALS AND I&O'S DONE AND CHARTED. VISITORS IN ROOM. CALL LIGHT IN REACH. NO FURTHER NEEDS AT THIS TIME.
--- NOTE | 2023-08-19 19:25 | NUR ---
BEDSIDE REPORT RECEIVED FROM BRIJESH WHITT. pt AMBULATING IN HALLWAY AFTER RNS EXIT ROOM. GAIT STEADY. pt STATES "IT STILL HURTS GETTING UP". EDUCATION PROVIDED.
--- NOTE | 2023-08-19 21:00 | NUR ---
pt UP AMBUALTING IN HALLWAY. COMPLAINS OF EPIGASTRIC PAIN. ENCOURAGED AMBULATING. BACK TO ROOM, STATES WALK HELPED WITH PAIN. ASSESSMENT COMPLETE. BOWEL TONES ACTIVE. MABLE DRAIN EMPTIED, 20 MLS SS FLUID. DENIES TENDERNESS WITH PALPATION OF ABDOMEN. COLLINS CARE COMPLETE. MD IN ROOM DISCUSSING PLAN OF CARE WITH pt. CALL LIGHT IN REACH. PUDDING PROVIDED. DAUGHTER IN ROOM.
--- NOTE | 2023-08-19 21:59 | OR ---
[facility] [address] [place], [place] [address] Signed DATE OF OPERATION: 08/18/2023 SURGEON: Florentino Ocampo MD PREOPERATIVE DIAGNOSES: 1. Large urachal cyst with abscess and spontaneous drainage through umbilicus. 2. 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 Morbid obesity. POSTOPERATIVE DIAGNOSES: 1. Large urachal cyst with abscess and spontaneous drainage through umbilicus. 2. 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 3. Obesity. 4. 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 PROCEDURES: 1. Diagnostic laparoscopy. 2. Laparotomy with resection of complex abdominal wall mass (urachus) in continuity with segmental sigmoid colectomy with primary end to end colocolostomy 3. Partial urinary bladder resection ........ Prolonged, complicated and difficult. ANESTHESIA: General endotracheal, Tash Romeo CRNA and subsequently Shailesh Capellan CRNA and postoperative bilateral TAP blocks. INDICATION: This 48-year-old man presented to the emergency room on August 15, 2023 with severe cellulitic changes in the region of the umbilicus and drainage of purulent material which was very foul smelling. CT scan of the abdomen was performed, which showed probable infected urachal cyst and findings suggestive of a dense adhesion of sigmoid colon to the urachal cyst as well. Air bubbles were noted in the infected and abscess containing large urachal cys. The patient was treated with broad-spectrum antibiotics which much improved cellulitic changes. He had significant drainage of purulent fluid from the umbilicus as well as passage of air from the umbilicus. Antibiotics and supportive care allowed for improvement of drainage from the umbilicus. There remains a mucopurulent discharge from the umbilical defect as well as episodic air from the area confirming probability of a colo-urachal cutaneous fistula. Electronically Signed By: FLORENTINO OCAMPO MD 08/19/23 2159 PATIENT NAME: NANCY HI OPERATIVE REPORT DATE OF : 75 REPORT #: [id number] PHYSICIAN: FLORENTINO OCAMPO MD PCP: NO PRIMARY CARE PHYSICIAN REPORT IS CONFIDENTIAL AND NOT TO BE RELEASED WITHOUT AUTHORIZATION [facility] [address] [place], [place] [address] Signed He underwent bowel prep and colonoscopy yesterday, which showed numerous diverticula, but did not identify specifically a connection between the colon and the midline urachal cyst process. He is now to undergo laparoscopy, possible urachal cyst drainage and possible sigmoid colectomy in addition to definitive resection of the large urachal cyst with abscess. He understands, as does his significant other, the risk of bleeding, infection, failure to cure the problem, need for other indicated procedures and other unforeseen complications. Understanding this, he wished to proceed. FINDINGS: Laparoscopy confirmed a bulky anterior abdominal bulky mass extending from the umbilicus inferiorly consistent with large urachal cyst with abscess. Dense adhesions of sigmoid to the left side of the cystic process was noted as well. There was no evidence of carcinomatosis or other intra-abdominal abnormality. As the cyst itself appeared to be decompressed fully of any purulent material based on interrogation of the cyst with the Yankauer suction, laparotomy was deemed appropriate to allow for resection of the cyst and segmental resection of the colon as necessary. Ultimately, it was found there was a dense fistulous connection between the portion of the sigmoid to the urachal cyst and quite importantly, a bulky neoplasm associated with the cyst likely extending into the dome of the bladder. This necessitated segmental resection of the sigmoid, complete excision of the urachal cyst including the tract to the skin itself and resection of the upper 3rd of the bladder. There was no sign of metastatic disease. no intra-abdominal evidence of End-to-end colocolostomy of the sigmoid was completed without tension or problem and he tolerated the procedure well. A fofana catheter remains in place as does a left pelvic catarino drain. DESCRIPTION OF PROCEDURE: The patient was brought to the operating room and given a general endotracheal anesthetic. A Fofana catheter was placed. I was mindful that his preoperative urinalysis was completely and totally normal with no evidence of hematuria, pyuria, or other issue. The abdomen was clipped and prepared with a chlorhexidine solution and draped sterilely. Laparoscopy was performed to assess if there was in fact adhesion of sigmoid to the urachal abnormality -- though it clinically was probable as he had episodic air from the umbilicus itself. A supraumbilical incision was made, which was unsuccessful as the peritoneal layer was quite thickened no doubt related to inflammatory change. An epigastric incision was made and using an open Giles cannula technique, the abdomen was entered and pneumoperitoneum achieved to a level of 14 mmHg with carbon dioxide gas. Intra-abdominal inspection was undertaken showing no sign of ascites or carcinomatosis. Electronically Signed By: FLORENTINO OCAMPO MD 08/19/23 2159 PATIENT NAME: NANCY HI OPERATIVE REPORT DATE OF : 75 REPORT #: [id number] PHYSICIAN: FLORENTINO OCAMPO MD PCP: NO PRIMARY CARE PHYSICIAN REPORT IS CONFIDENTIAL AND NOT TO BE RELEASED WITHOUT AUTHORIZATION [facility] [address] [place], [place] [address] Signed The liver appeared normal as did the small bowel loops. Examination of the urachal cyst showed it to be bulky, relatively smooth, but densely adherent to a segment of sigmoid colon to the left of the midline. A 5 mm trocar was placed in the left lower quadrant allowing for some manipulation of the process. It appeared to be stuck to the urachal area for several cm and dense adhesions were noted to this area. Interrogation in the infraumbilical incision to the urachal cyst with a [employer] suction device showed no significant residual purulence. It had drained persistently in the past few days. It appeared unlikely that any further benefit could be obtained by ongoing antibiotic therapy and particularly since he likely had a colocutaneous fistula via the urachal cyst, definitive resection was deemed most appropriate. The laparoscope was removed at that point. A midline incision was made extending from above the umbilicus to the symphysis pubis. He had a thick abdominal wall pannus. This was divided with blunt and electrocautery dissection. The abdomen was entered. Upon entry to the abdomen, care was taken to avoid interruption of the urachal cyst itself. The fascial edge was incised without troubling the underlying urachal process. The most advantageous vision of the urachus was from the left side of the operating table. The lesion was bulky and extended through the umbilicus itself as was expected. Using electrocautery, a conical resection was undertaken of the urachal cyst site at the umbilicus and extended to the right and left sides of the abdominal cavity excising a 2 cm segment of peritoneum sparing the fascia proper through the extent of the process. The lovelock fascial edges were spared in resecting the bulky urachal process. The more the distal the process was dissected the more dense and broad it became. The sigmoid colon was densely adherent to the inflammed urachal cyst mass. On the possibility that a malignant cause wass accounting for the rubbery texture of the urachal cyst, resection of the adherent segment of sigmoid without peeling it off was deemed essential. Thus, resection of an 8 cm segment of sigmoid colon would be required to allow mobilization of the bulky urachal mass. The corresponding mesentery to the sigmoid divided with all due care using clips. The isolated segment of sigmoid adherent to the urachal mass was divided using a LITZY stapling device both proximal and distal to its attachement to the urachal mass. Dissection was undertaken anteriorly over the mass down to the space of Retzius. Normal bladder could be palpated below this area. The apex of the bladder contiguous with the inferior aspect of the urachal cystic mass was quite bulky. Freeing of the colon from the process allowed for very good mobilization of the urachal cyst anteriorly and posteriorly. A Bookwalter retractor had been Electronically Signed By: FLORENTINO OCAMPO MD 08/19/23 2159 PATIENT NAME: NANCY HI OPERATIVE REPORT DATE OF : 75 REPORT #: [id number] PHYSICIAN: FLORENTINO OCAMPO MD PCP: NO PRIMARY CARE PHYSICIAN REPORT IS CONFIDENTIAL AND NOT TO BE RELEASED WITHOUT AUTHORIZATION [address] [address] Signed used to retract other intraabdominal bowel loops away from the pelvic operative site At the apex of the bladder in the inferior aspect of the urachal cyst was a palpable bulky neoplastic type change concerning for being within the lovelock bladder itself, Consideration was made for intraoperative cystoscopy, however, given the logistical issues with it, it was deemed impractical. Wide resection of the bulky urachal cyst and been taken down to the apex of the bladder by this point. There was no obvious adenopathy associated with the lesion. Uncertain as to the extent of possible neoplastic process at the dome of the bladder and not entirely knowing the extent of the process, the circulating nurse at my direction insufflated the bladder with sterile saline. This allowed for good delineation of the bladder proper versus the urachal cyst and the dome of the bladder which may have had a neoplastic process. The distending saline was removed after the balloon of the fofana catheter was palpated and the exent of normal bladder defined. An area designated likely free from neoplasia was identified and a pursestring suture of 0 silk made in the anterior aspect of the muscular bladder. A transverse incision was made in this area allowing for entry into the bladder itself. Intracystic inspection showed no evidence of hemorrhage, but did show bulky possible neoplastic process at the apex of the bladder, but not typical of bladder cancer with friable mucosa, indeed it appeared likely to be "pushing" from the urachal side of the bladder dome itself. Wide resection was undertaken of this bulky area maintaining negative margin on the bladder wall itself. The specimen was removed and examined on the back table and opened and found to have a fistulous connection of the colon to the urachal cyst itself and the segment of bladder with mucosal tumor resected well away from the probable neoplastic process of the bladder dome. The Fofana catheter bulb could easily be seen in the depths of the bladder. The remaining bladder mucosa was smooth and without any neoplastic or inflammatory changes. The partial cystectomy was well away from the trigone, so far as can be told. Closure of the bladder was undertaken in a three layer technique of running 3-0 PDS suture. This included the mucosal layer, followed by the inner muscular layer and ultimately the the external muscular layer in a running configuration. Good closure was assured. The Fofana catheter is anticipated to remain in the bladder for at least two weeks postoperatively. Irrigation was undertaken more fully showing no sign of bleeding or other problems. Attention was then turned towards moravian of colonic continuity. The colon had Electronically Signed By: FLORENTINO OCAMPO MD 08/19/23 2159 PATIENT NAME: NANCY HI OPERATIVE REPORT DATE OF : 75 REPORT #: [id number] PHYSICIAN: FLORENTINO OCAMPO MD PCP: NO PRIMARY CARE PHYSICIAN REPORT IS CONFIDENTIAL AND NOT TO BE RELEASED WITHOUT AUTHORIZATION [facility] [address] [place], [place] [address] Signed been transected just above the proximal rectum. The more proximal segment was freed by incising the white line of Toldt and bluntly freeing the mesentery of the left colon from the abdominal wall and retroperitoneum. An additional segment of sigmoid colon was resected so as to assure good viability to the anastomosis. The corresponding mesenteric vessels were divided and secured with silk ties and a portion of sigmoid resected with a LITZY stapling device. The distal segment was relatively free and mobile without much additional dissection. A colocolostomy was undertaken in a two-layer technique of interrupted 3-0 silk suture, excising the staple line of each segment. There was no contamination of the abdominal cavity and the anastomosis was tension-free. Irrigation was then undertaken throughout the abdomen, showing no sign of bleeding. Palpation of the right dome of the liver showed no evidence of neoplastic change of the liver. The omentum was replaced over the abdominal contents after removal of isolating laparotomy packs and the Bookwalter retractor. Through a left lower quadrant incision, a 7 mm flat Catarino drain was placed and secured the skin with nylon suture. Examination of small bowel loops and in particular the cecum showed the appendix to be present without palpable fecalith and without sign of chronic inflammation. On that basis, closure was then undertaken. The omentum was replaced over the abdominal contents after copious irrigation of the abdominal cavity with sterile saline. The midline fascia was reapproximated with running bidirectional #1 PDS suture. There did remain some external umbilical skin, which was left in situ and not incorporated in the closure itself. Subcutaneous space was copiously irrigated with saline solution and the skin closed with loose application of clips given his prior history of cellulitis related to the urachal cyst, though all erythema of the skin has already resolved. An Acticoat dressing was applied. The drain was applied to bulb suction and Fofana catheter remained in place. TAP blocks were then performed by the desk pen set assembler for postoperative analgesic benefit. He was ultimately extubated and transferred to recovery room in good condition having suffered no complication. Sponge, needle, and instrument counts were reported as correct x3. Florentino Ocampo MD JM/MODL /[id number] cc: Dr. Fiore Electronically Signed By: FLORENTINO OCAMPO MD 08/19/23 2159 PATIENT NAME: NANCY HI OPERATIVE REPORT DATE OF : 75 REPORT #: [id number] PHYSICIAN: FLORENTINO OCAMPO MD PCP: NO PRIMARY CARE PHYSICIAN REPORT IS CONFIDENTIAL AND NOT TO BE RELEASED WITHOUT AUTHORIZATION [facility] [address] [facility] [place], [place] [address] Signed Copies: ~ Electronically Signed By: FLORENTINO OCAMPO MD 08/19/23 2159 PATIENT NAME: LILIAROXANNNANCYTodd CASTRO OPERATIVE REPORT DATE OF : 75 REPORT #: [id number] PHYSICIAN: FLORENTINO OCAMPO MD PCP: NO PRIMARY CARE PHYSICIAN REPORT IS CONFIDENTIAL AND NOT TO BE RELEASED WITHOUT AUTHORIZATION
--- NOTE | 2023-08-19 22:06 | NUR ---
pt BACK IN BED AFTER AMBULATING IN HALLWAY. IV ANTIBIOTIC INFUSING WNL. pt HAS CALL LIGHT IN REACH. DENIES NEEDS. DAUGHTER IN ROOM.
--- NOTE | 2023-08-19 23:02 | NUR ---
pt RESTING IN BED AWAKE ON CELL PHONE. 2L OXYGEN IN PLACE FOR SLEEP. pt RATES PAIN 6/10 IN ABDOMEN. PRN MOTRIN ADMINISTERED. ICE PACK PROVIDED. CALL LIGHT IN REACH.
[2023-08-20] VITALS (7 sets, daily range): BP systolic 108–131; BP diastolic 67–86
--- NOTE | 2023-08-20 02:17 | NUR ---
CHECKED ON pt. RESTING IN BED WITH EYES CLOSED. BREATHING UNLABORED. RR 18. NO DISTRESS NOTED.
--- NOTE | 2023-08-20 02:41 | NUR ---
CALL LIGHT ANSWERED. pt COMPLAINS OF 7/10 PAIN IN ABDOMEN. PRN PAIN MEDICATIONS ADMINISTERED. NEW ICE PACK PROVIDED. PUDDING PROVIDED. IVF INFUSING WNL. COLLINS EMPTIED, PINK TINGED URINE. pt DENIES ADDITIONAL NEEDS. SIGNIFICANT OTHER IN ROOM.
--- NOTE | 2023-08-20 06:06 | NUR ---
pt SLEEPING, AWAKENS TO VOICE FOR VS. VSS. IV ANTIBIOTIC INFUSING WNL. ASSESSMENT COMPLETE. pt DENIES PAIN. MABLE DRAIN EMPTIED 10 MLS SS DRAINAGE. ICE WATER REFILLED. pt DENIES FLATUS. COLLINS EMPTIED. pt UP AMBULATING IN HALLWAY AFTER RN LEAVES ROOM. SIGNIFICANT OTHER AMBULATING WITH pt.
--- NOTE | 2023-08-20 08:50 | NUR ---
Patient awake in bed, alert and oriented x4. Patient has no acute distress. Bowel tones present x4 quadrants, pt denies passing flatus. Patient recently ambulated in hallway, tolerates well. Patient reports 7/10 abdominal pain, admin percocet 7.5/325mg po at this time. Murrell intact/patent, clear yellow urine noted in bag. IV fluids/abx infusing per provider order. No current needs, call light within reach.
[2023-08-20] MEDS ORDERED: FAMOTIDINE 20 MG TAB PO SCH (09:00)
--- NOTE | 2023-08-20 09:31 | NUR ---
PC to day surgery, spoke with BRIJESH Syed. Requested she leave Dr. Rice a note asking about this patient's dressing removal order. The pt's dressing has packing under the acticoat. This RN is seeking clarification that all of it needs to be removed before showering, and/or if Dr. Rice wants it redressed afterwards, or if, because there is packing, we need to leave it.
--- NOTE | 2023-08-20 09:40 | NUR ---
Received a PC from BRIJESH Syed in day surgery. Dr. Rice advised that the order is correct to remove the dressing and allow the pt to shower. The packing should just come off with the dressing. Primary RN notified.
--- NOTE | 2023-08-20 09:54 | NUR ---
ACTICOAT DRESSING REMOVED. GAUZE IN UMBILICUS IS DIFFICULT TO REMOVE, EVEN AFTER SOAKING THE GAUZE WITH A NS FLUSH. PT DOES NOT WISH TO SHOWER YET, BUT WANTS TO NAP. ADVISED PT THAT WHEN HE IS READY TO SHOWER, TO LET THE NURSE KNOW. ALSO ADVISED THE PT THAT HE CAN STILL SHOWER, AND TO ALLOW THE GAUZE TO SOAK AND THAT IT MAY FALL OUT. PT AND PT'S GIRLFRIEND BOTH VERBALIZED UNDERSTANDING.
--- NOTE | 2023-08-20 11:00 | NUR ---
PATIENT WENT IN AND TOOK HIS SHOWER. PATIENT IS INDEPENDENT. DERIC AND I MADE HIS BED. PICKED UP THE TOWELS AND WIPED DOWN THE SHOWER FLOOR. PATIENT IS LAYING BACK DOWN IN BED.
--- NOTE | 2023-08-20 12:45 | NUR ---
Spoke with Joselo. He denies needs. Does not have a pcp, but has been added to the clinic list. I will call and make a post hospital visit for next week.
--- NOTE | 2023-08-20 13:08 | NUR ---
Patient showered. Remainder of gauze packing to abdominal wound site fell out in shower. Ramiro intact to midline incision, scant drainage post shower-ABD pad placed to catch drainage. Drain to LLQ patent, scant amount of serosang drainage noted. Abdominal binder replaced, pt reports fit is comfortable. No current needs, personal supplies and call light within reach.
[2023-08-20] MEDS ORDERED: metroNIDAZOLE 250 MG TAB PO SCH (17:00)
[2023-08-20] MEDS ORDERED: AMOXICILLIN/CLAVULANATE K 875 MG TAB PO SCH (17:00)
--- NOTE | 2023-08-20 17:12 | NUR ---
Notified by Antoni at the Physician clinic she has scheduled pt to see Dr. Cho August 24 at 2pm. Appt added to the dc sheet.
--- NOTE | 2023-08-20 17:58 | NUR ---
Patient ambulated in hallway, tolerated well. Patient reports he feels "gas bubbles" in stomach but has not yet passed flatus via rectum per pt. Patient denies nausea, he is tolerating full liquids well. Patient is tolerable at this time.
--- NOTE | 2023-08-20 20:05 | NUR ---
JACQUARD TWINE POLISHER OPERATOR OBTAINED VITALS AND I&O. PT STATES NO FURTHER NEEDS AT THIS ITME. CALL LIGHT PLACED WITHIN REACH.
--- NOTE | 2023-08-20 20:48 | NUR ---
awake and alert, walked hallways, tolerated well, on room air, lung clear slightly dim at baes, no cough. no c/o sob. abd large, tener, soft, HEA. denies passing gas at this time. up to brp earlier, no bm. midline incision with ilana in place, moderate amount ss drainage umbilical area and below.ABD to area. has abd binder in place. l abd chester w ss drainage. SL RAC, IVF infusing LFA, patent. no edema to feet. pleasant and cooperative. c/o 810 abd pain, medicated with 2 Oxycodone.
--- NOTE | 2023-08-20 22:27 | NUR ---
resting, eyes closed, no further c/o pain.
--- NOTE | 2023-08-21 01:09 | NUR ---
AWAKE, DENIES C/O PAIN, IVF INFUSING, STATED HE PASSED GAS, F/C PATENT DRAINING ORANGE-YELLOW COLORED URINE.
--- NOTE | 2023-08-21 02:53 | NUR ---
RESTING, NO S/SX DISTRESS, IVF INFUSING, F/C PATENT
--- NOTE | 2023-08-21 03:16 | NUR ---
PT AWAKE, C/O 09/08 ABD PAIN, MEDICATED WITH 1 PERCODAN AND 1 IBUPROFEN. COOPERATIVE WITH SECONDARY ASSESSMENT. ABD BINDER IN PLACE, MIDLINE ABD INCISION WITH MONI, SCANT AMOUNT OF SEROUS DRAINAGE BELOW UMBILICUS. GAUZE PLACED. MABLE PATENT, F/C PATENT. IVF INFUSING
--- NOTE | 2023-08-21 04:26 | NUR ---
HOB elevated, awakens easily, on room air, IVF infusing, MABLE patent, and binder in place, f/c patent. no further c/o pain
[2023-08-21 05:22] VITALS: BP 126/76
[2023-08-21 05:23] LABS: BASOPHILS 0.6 % (0-2); EOSINOPHILS 1.9 % (0-6); HEMATOCRIT 32.4 % (35.0-50.0); HEMOGLOBIN 10.2 g/dL (12.0-18.0); LYMPHOCYTES 19.3 % (24-44); MCH 22.1 (27-36); MCHC 31.6 g/dl (30-36); MCV 70.1 fl (81-99); MONOCYTES 4.7 % (0-12); NEUTROPHILS 73.5 % (39-80); PLATELET COUNT 231 K/uL (140-440); RBC 4.63 M/ul (4.3-5.7)
--- NOTE | 2023-08-21 05:23 | NUR ---
ROBOTICS ENGINEER OBTAINED VITALS. COLLINS BAG EMPTIED. NO NEW INTAKE NOTED. OUTPUT RECORDED. PT STATES NO FURTHER NEEDS AT THIS TIME. CALL LIGHT PLACED WITHIN REACH.
[2023-08-21 05:33] LABS: ANION GAP 11.9 (7-21); BUN/CREATININE RATIO 13.25 (6.0-28.6); CALCIUM 8.3 mg/dL (8.5-10.1); CREATININE, SERUM 0.83 mg/dL (0.70-1.30); MAGNESIUM 2.1 mg/dL (1.8-2.4); POTASSIUM 3.9 mmol/L (3.5-5.1)
--- NOTE | 2023-08-21 07:14 | NUR ---
Patient awake in bed, alert and oriented x4. Patient reports tolerable pain at this time. Midline incision open to room air, ilana intact. LLq drain closed to suction, patent with scant amount of serosang drainage. Patient reports passing flatus, + bowel tones x4 quadrants. No bm since surgery per report.
--- NOTE | 2023-08-21 08:47 | NUR ---
Patient sitting up in bed awake, alert and oriented x4. Patient reports 8/10 abdominal pain, admin two tabs percocet 7.5/325mg po at this time. Patient has active bowel tones x4 quadrants, pt reports passing frequent flatus but no bm yet. Midline incision well approximated, ilana intact-no new drainage. LLQ MABLE drain is patent/intact, scant serosang drainage noted. Abdominal binder in place. Patient reports he is going to eat breakfast then take a walk. No curren needs, call light within reach.
--- NOTE | 2023-08-21 09:05 | NUR ---
Dr. Gabriel updated that patient had a bowel movement. TORB from Dr. Gabriel to advance to diet regular.
--- NOTE | 2023-08-21 10:08 | NUR ---
VISITED DURING SPIRITUAL CARE ROUNDS. IN ROOM. STRONG RELATIONAL SUPPORT EVIDENCED. PROVIDED SUPPORTIVE PRESENCE, HOSPITALITY, PRAYER. NORMALIZED PT EXPERIENCE. PT AND EXPRESSED GRATITUDE.
[2023-08-21 10:12] VITALS: BP 139/88
--- NOTE | 2023-08-21 12:18 | NUR ---
ADMIN MOTRIN 600MG PO FOR REPORTS OF 5/10 ABDOMINAL PAIN.
--- NOTE | 2023-08-21 13:00 | NUR ---
Spoke with pts . Pt in the bathroom. Passing large amounts of gas. Updated pt has been scheduled to see Dr. Cho next week. She denies further needs.
[2023-08-21 14:07] VITALS: BP 136/81
--- NOTE | 2023-08-21 15:53 | NUR ---
Hep locked IV fluids at this time per Dr. Gabriel's order.
--- NOTE | 2023-08-21 16:24 | NUR ---
Patient taking a nap at this time, eyes closed, respirations even and non labored. Patient has no notable distress. Personal supplies and call light within reach.
[2023-08-21 18:15] VITALS: BP 133/79
[2023-08-21 21:03] VITALS: BP 130/83
--- NOTE | 2023-08-21 21:18 | NUR ---
Pt in bed, hob elevated. on room air, clear ungs, c/o abd pain, medicated with motrin. abd large soft, tender, BROOK, passing gas, and had bm's. midline incision with ilana in place CDI, well aprroximated. no drainage noted at this time. MABLE with old drainage under dressing, patent with ss drainage. abd binder in place. f/c patent. draining/orange/dark yellow colored urine. tolerating liquids well, no c/o n/v. SL patent.
[2023-08-21 21:21] VITALS: BP 130/83
--- NOTE | 2023-08-21 22:25 | NUR ---
resting, eys closed, turns and repositions self in bed
--- NOTE | 2023-08-21 23:46 | NUR ---
RESTING, NO C/O PAIN, F/C PATENT
--- NOTE | 2023-08-22 00:10 | NUR ---
PT AWAKE, C/O 09/08 ABD PAIN. MEDICATED WITH 2 [address]COCET[address] BIND[address], MABLE PATENT, F/C PATENT
--- NOTE | 2023-08-22 01:52 | NUR ---
RESTING, EYES CLOSED, NO S/SX DISTRESS, F/C PATENT
--- NOTE | 2023-08-22 03:49 | NUR ---
RESTING, , EYES CLOSED, NO S/SX DISTRESS, F/C PATENT.
[2023-08-22 04:42] VITALS: BP 131/86
--- NOTE | 2023-08-22 04:55 | NUR ---
PT C/O ABD PAIN. MEDICATED. ABD LARGE OBESE, SOFT, TENDER, BROOK, MIDLINE INCISION W MONI, DRY, WELL APPROXIMATED, MABLE SITE WITH OLD DRAINAGE. BROOK, PASSING GAS, HAD BMS YESTERDAY, NONE THIS SHIFT. F/C PATENT, TOLERATING LIQUIDS WELL,
[2023-08-22 05:00] VITALS: BP 131/86
--- NOTE | 2023-08-22 06:57 | NUR ---
Pt walked hallways with significant other. tolerated very well. no further c/o pain.
[2023-08-22 09:05] VITALS: BP 146/97
--- NOTE | 2023-08-22 09:15 | NUR ---
PATIENT SITTING UP IN CHAIR WITH VISITOR AT BEDSIDE. COMPLAINS OF 6/10 ABDOMINAL TENDERNESS. ENDORSES BM THIS AM AND PASSING FLATUS. MEDICATED FOR PAIN. PATIENT REPORTS HE IS LOOKING FORWARD TO BEING DC. REVIEWED POC FOR THE SHIFT. PATIENT AND VISITOR DENY QUESTIONS.
--- NOTE | 2023-08-22 10:16 | NUR ---
PATIENT SITTING UP IN CHAIR, REPORTS HIS PAIN HAS IMPROVED. DENIES NEEDS.
[2023-08-22 10:31] VITALS: BP 146/97
[2023-08-22] MEDS ORDERED: AMOX TR-K CLV1 EAC1 PO (11:14)
[2023-08-22] MEDS ORDERED: METRONIDAZOLE250 MG PO (11:14)
[2023-08-22] MEDS ORDERED: PROTONIX40 MG PO (11:15)
[2023-08-22] MEDS ORDERED: ACETAMINOPHEN500 MG PO (11:15)
[2023-08-22] MEDS ORDERED: OXYCODON-ACETA1 EAC2 PO (11:15)
[2023-08-22] MEDS ORDERED: IBUPROFEN600 MG PO (11:15)
--- NOTE | 2023-08-22 11:15 | NUR ---
DR OCAMPO IN TO SEE PATIENT AND REMOVE MABLE. TOLERATED WELL. CATHETER DRAIN BAG SWITCHED TO LEG BAG. COLLINS CARE INSTRUCTIONS PROVIDED TO PATIENT AND SO. BOTH VERBALIZE UNDERSTANDING.
[2023-08-22 11:54] VITALS: BP 141/89
--- NOTE | 2023-08-23 09:32 | DS ---
[facility] [address] [place], [place] [address] Signed ADMISSION DATE: 08/15/2023 DISCHARGE DATE: 08/22/2023 REASON FOR ADMISSION: Purulent drainage from umbilicus with abdominal wall cellulitis and probable infected urachal cyst. HISTORY: This morbidly obese, BMI 40.7, white man presented to the emergency room and evaluated by Dr. Fiore with complaints of purulent drainage from the umbilicus as well as surrounding cellulitis. The patient had been seen in the emergency room two weeks prior to current evaluation for malaise and considered possible to have a pulmonary embolism. Evaluation by CT angiography showed no evidence of pulmonary embolism. The patient was noted to have had chills and other vague symptoms, but no actual fever. Evaluation by Dr. Fiore included a CT scan of the abdomen showing a thick walled gas containing cystic mass inferior to the umbilicus and superior to the bladder, approximately 7 cm in size. There was moderate adjacent inflammatory stranding involving the adjacent sigmoid colon. Clinical findings were consistent with infected urachal cyst and possible sigmoid colonic fistula to the urachal cyst. Quite notably, his urinalysis was entirely normal with no hematuria. Associated lab values showed a white count of 11.7, hematocrit 42.1. Chem profile, and platelets normal. PERTINENT PHYSICAL EXAMINATION: GENERAL: A pleasant, obese white man accompanied by his girlfriend. VITAL SIGNS: Height 5 feet 10 inches, weight 128.6 kg. BMI of 40.7. Mucous membranes are moist. Trachea is midline. CHEST: Clear. HEART: Regular without murmur. ABDOMEN: Obese, but soft. At the umbilicus, there was a bandage with foul smelling mucoid material with minimal erythema. He did not have generalized peritonitis. There was no palpable mass of the abdomen. EXTREMITIES: Show no clubbing, cyanosis, or edema. LABORATORY STUDIES: Showed a white count of 11.7, hematocrit 42.1, platelets 258,000. Chem profile normal, creatinine initially 1.05. Urinalysis was normal. CT scan showed findings on AP, lateral and transverse planes consistent with infected urachal cyst with air bubbles and dense inflammatory connection to the sigmoid colon. Electronically Signed By: FLORENTINO OCAMPO MD 08/23/23 0932 PATIENT NAME: NANCY HI DISCHARGE SUMMARY DATE OF : 75 REPORT #: [id number] PHYSICIAN: FLORENTINO OCAMPO MD PCP: NO PRIMARY CARE PHYSICIAN REPORT IS CONFIDENTIAL AND NOT TO BE RELEASED WITHOUT AUTHORIZATION [facility] [address] [place], [place] [address] Signed HOSPITAL COURSE: The patient was given intravenous fluids and IV antibiotic Zosyn for abdominal wall cellulitis and the probable infected urachal cyst. He was noted to have episodic air coming from the umbilicus clinically consistent with fistulization. He underwent a bowel prep and on August 17, 2023, and underwent colonoscopy. He was confirmed to have sigmoid diverticulosis, but no identifiable connection to the urachal cyst and no sign of polyps or malignancy. Continued IV antibiotics were administered and the cellulitic changes of the abdominal wall were essentially resolved. On August 17, he underwent diagnostic laparoscopy. This showed no evidence of ascites or carcinomatosis but did confirm that the sigmoid colon was densely adherent to the lower midline bulky process. Conversion of laparoscopy to open midline laparotomy allowed for resection of the complex abdominal wall mass consistent with urachus as well as segmental resection of portion of sigmoid colectomy and ultimately excision of the superior 1/3rd of the bladder. The mass was noted within the substance of the urachal cyst, most consistent with a neoplasm. Opening of the bladder confirmed at the apex of the bladder, a tumor like finding with normal bladder elsewhere. The operation was prolonged, complicated, and difficult based on inflammatory changes, his significant obesity and so on. Postoperatively, a pelvic drain was maintained in place as well as a decompressive Murrell catheter. He soon thereafter had bowel function and the hematuria of his Murrell collection device cleared entirely. He ambulated soon after operation and tolerated a regular diet. By the day of discharge, he is ambulating well, tolerating a regular diet. The pelvic drain that was placed was removed prior to discharge as it had only scant output of serosanguineous fluid. The Murrell catheter was changed to a leg bag anticipating that bladder decompression be continuous for at least two more weeks. He was transitioned from IV antibiotic to oral Augmentin and Flagyl, which he tolerated well. At the time of discharge, his pathology report is still pending. He is advised to keep the wound clean and to shower on a daily basis. Skin ilana are still in place and would be removed as an outpatient. The drain has been removed. The Murrell catheter will remain in place and he will use a leg bag for that. He will return to see me within the next two weeks at which point, the Mrurell catheter will be removed as well the skin clips. A cystogram is likely to be performed before removal of the Murrell catheter to assure there is no bladder leak (quite unlikely). DISCHARGE MEDICATIONS: 1. Augmentin 875 mg p.o. b.i.d. with meals #20. 2. Flagyl 250 mg p.o. t.i.d. with meals, no alcohol, #30. Electronically Signed By: FLORENTINO OCAMPO MD 08/23/23 0932 PATIENT NAME: NANCY HI DISCHARGE SUMMARY DATE OF : 75 REPORT #: [id number] PHYSICIAN: FLORENTINO OCAMPO MD PCP: NO PRIMARY CARE PHYSICIAN REPORT IS CONFIDENTIAL AND NOT TO BE RELEASED WITHOUT AUTHORIZATION [facility] [address] [place], [place] [address] Signed 3. Ibuprofen 600 mg p.o. q.6 hours as needed for pain #60, refill one. 4. Percocet 7.5/325, 1-2 p.o. q.6 hours p.r.n. for severe pain #10. 5. Tylenol 500 mg two tablets p.o. q.6 hours as needed for pain #60, no refill. 6. Pantoprazole. 7. Protonix 40 mg p.o. daily, #30, refill one. He will discontinue metoprolol, which was actually never started by the patient, though prescribed several weeks ago. DISCHARGE DIAGNOSES: 1. Infected urachal cyst and spontaneous drainage from umbilicus and resulting abdominal wall cellulitis. 2. Sigmoidal diverticular changes but no endoscopic finding of colocutaneous fistula or colo-urachal fistula despite clinical findings. 3. 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 status post radical urachal cystectomy with partial bladder resection and partial sigmoid colectomy in continuity. 4. End-to-end colocolostomy for colon reconstruction. 5. Decompressive Murrell catheter placement. 6. Morbid obesity. BMI 40.7. FOLLOWUP PLAN: He will call my office on Thursday to set up appointment within the next two weeks and we will additionally set up the retrograde cystogram prior to removal of Murrell catheter in the office in addition to remove skin clips. MD GERALD Do/VICTORINOL /[id number] cc: Dr. Fiore Copies: ~ Electronically Signed By: FLORENTINO OCAMPO MD 08/23/23 0932 PATIENT NAME: NANCY HI DISCHARGE SUMMARY DATE OF : 75 REPORT #: [id number] PHYSICIAN: FLORENTINO OCAMPO MD PCP: NO PRIMARY CARE PHYSICIAN REPORT IS CONFIDENTIAL AND NOT TO BE RELEASED WITHOUT AUTHORIZATION
--- NOTE | 2023-08-24 12:05 | PATH ---
[facility] [facility] [address] [place] [address] Signed SPECIMEN(S): A URACHAL BLADDER, PORTION OF SIGMOID SPECIMEN(S): B ADDITIONAL PORTION OF SIGMOID COLON SPECIMEN SOURCE: A. URACHAL BLADDER, PORTION OF SIGMOID B. ADDITIONAL PORTION OF SIGMOID COLON CLINICAL HISTORY: Urachal cyst abscess FINAL PATHOLOGIC DIAGNOSIS: A. Partial sigmoid colon and bladder, resection: - Benign bladder with serosal/subserosal chronic inflammation and granulation tissue, with serosal adhesions to portion of sigmoid colon. - Adherent sigmoid colon with diverticulosis. - Negative for malignancy. B. Additional portion of sigmoid colon, resection: - Diverticulosis. AMB MICROSCOPIC EXAMINATION: Histologic sections of all submitted blocks are examined by light microscopy. These findings, together with the gross examination, support the pathologic diagnosis. GROSS DESCRIPTION: A. The specimen, labeled and designated "Dean Hi, " and designated on the requisition "urachal cyst portion of bladder and portion of sigmoid colon"," is received in formalin and consists of consists of a previously opened cystic cavity with attached bladder mucosa and segment of large bowel. The specimen has an overall dimension of 15.3 x 11.5 x 7.6 cm. The external surface is diffusely shaggy and roughened with a one multilobulated portion of intact serosa that is 10.5 x 6.0 cm. The surface is inked blue and the opposite surface of the serosa displays a previously opened cavity that is 5.6 x 4.5 x 3.3 cm. Attached to the wall of the cavity is an 8.1 x 3.6 cm pink, violaceous nodular portion of possible urothelium. The possible bladder wall abuts the cavity and has a white trabeculated cut surface with a thickness of 2.5 cm. Adherent to the side of the cavity is a 6.5 x 3.5 cm segment of previously opened large bowel. The PATIENT NAME: NANCY HI PATHOLOGY DATE OF : 75 REPORT #: [id number] PHYSICIAN: [facility] PCP: NO PRIMARY CARE PHYSICIAN REPORT IS CONFIDENTIAL AND NOT TO BE RELEASED WITHOUT AUTHORIZATION [facility] [address] [place], [place] [address] Signed serosal surface of the bowel is pink and smooth with adherent red membranous tissue. The mucosal surface is pink and finely granular. The no discrete mass lesions within the large bowel is grossly identified. The possible urothelium resection margin is inked black and radial resection margin is inked black. Adherent to the cavity within the adjacent indurated adipose tissue is a 5.6 x 1.6 cm tubular structure with a pinpoint lumen. The tubular structure margin is inked green. Sectioning through the sectioning through the cavity reveals a yellow-white dense rubbery fibroadipose tissue. The large bowel wall displays a multiple diverticula that are loosely adherent to the adjacent cystic cavity. Special Collections Librarian sections are submitted in seven cassettes. Cassette Summary: (A1) large bowel resection margins, shave (A2-A4) cavity two adjacent soft tissue (A5) tubular structure adherent to cystic cavity and tubular structure resection margin (inked green) (A6-A7) possible bladder wall with areas of hemorrhage B. The specimen, labeled and designated "Taiwo, Dean, " and designated on the requisition "additional portion of sigmoid," is received in formalin and consists of one unoriented portion of large bowel with attached fragmented mesentery. The portion of bowel is 3.5 cm in length and has an average diameter of 3.5 cm. The serosal surface is pink and smooth with areas of hemorrhagic discoloration adjacent to the staple lines. Upon opening the mucosal surface is pale pink and finely granular. No mass lesions are grossly identified. The bowel wall ranges in thickness from 0.5 cm up to 1.4 cm. Sectioning through the bowel wall reveals several diverticula. Special Collections Librarian sections are submitted in two cassettes. Cassette Summary: (B1) stapled resection margins, shave (B2) diverticula FB (under the direct supervision of a pathologist) The Gross Description was prepared using a voice recognition system. The report was reviewed for accuracy; however, sound-alike word errors, addition and/or deletions may occur. If there is any question about this report, please contact Client Services. ADDITIONAL NOTES: Immunohistochemical and/or in situ hybridization studies if performed in this PATIENT NAME: NANCY HI PATHOLOGY DATE OF : 75 REPORT #: [id number] PHYSICIAN: [facility] PCP: NO PRIMARY CARE PHYSICIAN REPORT IS CONFIDENTIAL AND NOT TO BE RELEASED WITHOUT AUTHORIZATION [address] [address] Signed case included appropriate positive controls that reacted as expected. This test was developed and its performance characteristics determined by [facility]. It has not been cleared or approved by the U.S. Food and Drug Administration. The FDA has determined that such clearance or approval is not necessary. This test is used for clinical purposes. It should not be regarded as investigational or for research. [facility] is certified under the Clinical Laboratory Improvement Amendments of 1988 (CLIA) as qualified to perform high complexity clinical laboratory testing. PERFORMING LABORATORY: Professional interpretation was performed by [facility] - [address] [id number] Diagnostician: Payton Ness MD Pathologist Electronically Signed 08/24/2023 Copies: ~ PATIENT NAME: NANCY HI PATHOLOGY DATE OF : 75 REPORT #: [id number] PHYSICIAN: [facility] [employer] [facility] PCP: NO PRIMARY CARE PHYSICIAN REPORT IS CONFIDENTIAL AND NOT TO BE RELEASED WITHOUT AUTHORIZATION
== END 2023-08-22 11:56 | disposition home or self-care (01) | DRG 654 ==
LOC: ED 20:32 → MS 22:09
PROVIDERS: Family Medicine; ADMIT Surgery; ATTEND Surgery
PROC: 0DJD8ZZ Inspection of Lower Intestinal Tract, Via Natural or Artificial Opening Endoscopic (ICD-10-PCS; 2023-08-17)
PROC: 0WJG4ZZ Inspection of Peritoneal Cavity, Percutaneous Endoscopic Approach (ICD-10-PCS; 2023-08-18)
PROC: 0DBN0ZZ Excision of Sigmoid Colon, Open Approach (ICD-10-PCS; 2023-08-18)
PROC: 0WBF0ZZ Excision of Abdominal Wall, Open Approach (ICD-10-PCS; principal; 2023-08-18 11:00)
PROC: 0TBB0ZZ Excision of Bladder, Open Approach (ICD-10-PCS; 2023-08-18 11:00)
DX: Q64.4 Malformation of urachus (principal); K63.2 Fistula of intestine; L02.211 Cutaneous abscess of abdominal wall; L03.311 Cellulitis of abdominal wall; Z68.41 Body mass index [BMI] 40.0-44.9, adult; K57.30 Diverticulosis of large intestine without perforation or abscess without bleeding; K66.0 Peritoneal adhesions (postprocedural) (postinfection); E66.01 Morbid (severe) obesity due to excess calories; D49.4 Neoplasm of unspecified behavior of bladder; F17.200 Nicotine dependence, unspecified, uncomplicated; I10 Essential (primary) hypertension; Z53.31 Laparoscopic surgical procedure converted to open procedure
CPT/HCPCS: 00840; 36415; 74177; 76942; 80048; 80053; 81003; 83735; 84484; 85025; 85060; 87040; 87070; 87075; 87205; 94762; 96375; 99153; 99285-25; A9270; G0500; J0131; J1100; J1885; J2001; J2250; J2270; J2405; J2543; J2704; J2795; J3010; J3475; J3490; J7121; Q9967

== ENCOUNTER 2023-08-23 23:18 | Inpatient (IN) | payer OTHER ==
[~2023-08-23] VITALS: Ht 177.8 cm; Wt 127.2 kg
[~2023-08-23 23:18] MED LIST changes: +ACETAMINOPHEN500 MG PO; +AMOX TR-K CLV1 EAC1 PO; +METRONIDAZOLE250 MG PO; +OXYCODON-ACETA1 EAC2 PO; +PROTONIX40 MG PO
--- OUTSIDE RECORDS SUMMARY | 2023-08-23 23:19 | XMS ---
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 E.Gabriella VISIT COUNT (12 MO.) 3 [facility] TOTAL 3 NOTE: Visits indicate total known visits. ED/UCC VISIT TRACKING (12 MO.) 08/23/2023 23:18 [facility] TYPE: Emergency COMPLAINT: - POST OP ISSUES 08/15/2023 20:33 [facility] TYPE: Emergency COMPLAINT: - ABDOMINAL PAIN 07/24/2023 03:56 [facility] TYPE: Emergency COMPLAINT: - SOB DIAGNOSES: - Encounter for screening for COVID-19 - Nicotine dependence, unspecified, uncomplicated - Palpitations - Shortness of breath - Tachycardia, unspecified INPATIENT VISIT TRACKING (12 MO.) 08/15/2023 22:09 [facility] TYPE: Medical Surgical COMPLAINT: - INFECTED URACHAL CYST [email or web address]
[2023-08-23] MEDS ORDERED: HYDROmorphone HCL 1 MG/ML SYR IV ONE (23:30)
[2023-08-23] MEDS ORDERED: SODIUM CHLORIDE 0.9% 1,000 ML IV ONE (23:30)
[2023-08-23] MEDS ORDERED: ondansetron HCL 4 MG/2 ML VIAL IV ONE (23:30)
[2023-08-23 23:59] LABS: PLATELET COUNT 307 K/uL (140-440)
[2023-08-24] VITALS (13 sets, daily range): BP systolic 103–165; BP diastolic 57–101
[2023-08-24 00:03] LABS: BASOPHILS 0.4 % (0-2); EOSINOPHILS 0.4 % (0-6); HEMATOCRIT 39.5 % (35.0-50.0); HEMOGLOBIN 12.2 g/dL (12.0-18.0); LYMPHOCYTES 13.4 % (24-44); MCH 21.8 (27-36); MCHC 30.9 g/dl (30-36); MCV 70.4 fl (81-99); MONOCYTES 3.4 % (0-12); NEUTROPHILS 82.4 % (39-80); RBC 5.61 M/ul (4.3-5.7); RDW 16.5 (10.5-15.0)
[2023-08-24 00:05] LABS: BILIRUBIN, URINE POSITIVE (negative); BLOOD/HGB, URINE MODERATE (Negative); KETONE, URINE TRACE (Negative); LEUK ESTERASE, URINE NEGATIVE (negative); NITRITE, URINE NEGATIVE (negative); PH, URINE 5.5 (5-7)
[2023-08-24 00:14] LABS: BACTERIA, URINE NONE SEEN /hpf (negative); CASTS, URINE HYALINE 1+ \\lpf; CRYSTALS, URINE NONE SEEN (0-1+); EPITHELIAL CELLS, URINE SQUAMOUS 1+ /lpf (0-1+)
[2023-08-24 00:15] LABS: COLLECTION TYPE, URINE CLEAN CATCH; REFLEX CULTURE, URINE No (No)
[2023-08-24 00:17] LABS: ALBUMIN 3.2 g/dL (3.4-5.0); ALBUMIN/GLOBULIN RATIO 0.76 (1.1-2.4); ANION GAP 13.6 (7-21); BILIRUBIN, TOTAL 0.8 ng/dL (0.2-1.0); BUN/CREATININE RATIO 10.57 (6.0-28.6); CALCIUM 8.9 mg/dL (8.5-10.1); CREATININE, SERUM 1.04 mg/dL (0.70-1.30); POTASSIUM 3.6 mmol/L (3.5-5.1); PROTEIN, TOTAL 7.4 g/dL (6.4-8.2)
[2023-08-24 00:20] LABS: LACTIC ACID, BLOOD 1.7 mmol/L (0.4-2.0)
[2023-08-24] MEDS ORDERED: PIPERACILLIN/TAZOBACTAM 4.5 GM in DEXTROSE 5% 100 ML IV ONE (02:00)
[2023-08-24] MEDS ORDERED: DEXTROSE 5% - LACTATED RINGERS 1,000 ML IV SCH ×2 (02:00)
[2023-08-24] MEDS ORDERED: HYDROmorphone HCL 1 MG/ML SYR IV PRN (02:00)
[2023-08-24] MEDS ORDERED: ondansetron HCL 4 MG/2 ML VIAL IV PRN ×3 (02:00→16:45)
[2023-08-24] MEDS ORDERED: MEROPENEM 1,000 MG in SODIUM CHLORIDE 0.9% 100 ML IV ONE (02:00)
[2023-08-24] MEDS ORDERED: FAMOTIDINE 20 MG/ 2 ML VIAL IV SCH ×2 (02:02→02:48)
[2023-08-24] MEDS ORDERED: MEROPENEM 1,000 MG VIAL IV ONE ×2 (02:12→21:31)
[2023-08-24] MEDS ORDERED: ACETAMINOPHEN 1,000 MG/100 ML VIAL IV PRN (02:15)
[2023-08-24] MEDS ORDERED: LACTATED RINGER'S 1,000 ML IV SCH (02:45)
[2023-08-24] MEDS ORDERED: KETOROLAC TROMETHAMINE 30 MG/ML VIAL IV PRN (02:45)
[2023-08-24 05:25] LABS: BASOPHILS 0.4 % (0-2); EOSINOPHILS 0.2 % (0-6); HEMATOCRIT 37.6 % (35.0-50.0); HEMOGLOBIN 11.9 g/dL (12.0-18.0); LYMPHOCYTES 9.6 % (24-44); MCH 22.1 (27-36); MCHC 31.6 g/dl (30-36); MCV 69.7 fl (81-99); MONOCYTES 3.4 % (0-12); NEUTROPHILS 86.4 % (39-80); PLATELET COUNT 265 K/uL (140-440); RBC 5.38 M/ul (4.3-5.7); RDW 16.4 (10.5-15.0)
[2023-08-24 05:33] LABS: ALBUMIN 2.9 g/dL (3.4-5.0); ALBUMIN/GLOBULIN RATIO 0.73 (1.1-2.4); ANION GAP 13.1 (7-21); BILIRUBIN, TOTAL 0.7 ng/dL (0.2-1.0); BUN/CREATININE RATIO 10.86 (6.0-28.6); CALCIUM 8.4 mg/dL (8.5-10.1); CREATININE, SERUM 0.92 mg/dL (0.70-1.30); POTASSIUM 4.1 mmol/L (3.5-5.1); PROTEIN, TOTAL 6.9 g/dL (6.4-8.2)
[2023-08-24] MEDS ORDERED: MEROPENEM 1,000 MG in SODIUM CHLORIDE 0.9% 100 ML IV SCH ×2 (10:00→22:00)
[2023-08-24] MEDS ORDERED: propofoL 200 MG/20 ML VIAL ONE (14:37)
[2023-08-24] MEDS ORDERED: SUGAMMADEX SODIUM 200 MG/2 ML ML ONE (14:37)
[2023-08-24] MEDS ORDERED: KETOROLAC TROMETHAMINE 30 MG/ML VIAL ONE (14:37)
[2023-08-24] MEDS ORDERED: ondansetron HCL 4 MG/2 ML VIAL ONE (14:37)
[2023-08-24] MEDS ORDERED: FAMOTIDINE 20 MG/ 2 ML VIAL ONE (14:37)
[2023-08-24] MEDS ORDERED: METOCLOPRAMIDE HCL 10 MG/2 ML SDV ONE (14:37)
[2023-08-24] MEDS ORDERED: fentaNYL citrate 100 MCG/2 ML VIAL ONE ×2 (14:37→18:25)
[2023-08-24] MEDS ORDERED: DEXAMETHASONE SOD PHOS 4 MG/ML VIAL ONE (14:37)
[2023-08-24] MEDS ORDERED: ROCURONIUM BROMIDE 50 MG/5 ML SYR ONE (14:37)
[2023-08-24] MEDS ORDERED: MIDAZOLAM HCL 2 MG/2 ML VIAL ONE (14:37)
[2023-08-24] MEDS ORDERED: LACTATED RINGER'S 1,000 ML IV ONE ×3 (14:37→16:21)
[2023-08-24] MEDS ORDERED: LIDOCAINE HCL 4% 5 ML AMP ONE (14:37)
[2023-08-24] MEDS ORDERED: SUCCINYLCHOLINE IN 0.9% NACL 200 MG/10 ML SYRINGE ONE (14:37)
[2023-08-24] MEDS ORDERED: DIGOXIN 500 MCG/2 ML AMP ONE (15:31)
[2023-08-24] MEDS ORDERED: HYDROCORTISONE SOD SUCCINATE 100 MG/2 ML VIAL ONE (15:31)
[2023-08-24] MEDS ORDERED: VECURONIUM BROMIDE 20 MG VIAL IV ONE (15:32)
[2023-08-24] MEDS ORDERED: WATER STERILE 20 ML VIAL ONE (15:32)
[2023-08-24] MEDS ORDERED: Ropivacaine HCl 0.5% 30 ML VIAL ONE (16:24)
[2023-08-24] MEDS ORDERED: SODIUM CHLORIDE 0.9% 40 ML IV ONE (16:24)
[2023-08-24] MEDS ORDERED: fentaNYL citrate 50 MCG/ML SDV IV PRN (16:45)
[2023-08-24] MEDS ORDERED: NALOXONE HCL 0.4 MG SYR IV PRN (16:45)
[2023-08-24] MEDS ORDERED: MORPHINE SULFATE 10 MG/ML VIAL IV PRN (16:45)
[2023-08-24] MEDS ORDERED: IBLOOD GLUCOSE TEST STRIP 1 EA TEST VI PRN (16:45)
[2023-08-24] MEDS ORDERED: PROCHLORPERAZINE EDISYLATE 10 MG/2 ML VIAL IV PRN (16:45)
[2023-08-24] MEDS ORDERED: METOCLOPRAMIDE HCL 10 MG/2 ML SDV IV PRN (16:45)
[2023-08-24] MEDS ORDERED: droPERidol 5 MG/2 ML VIAL IV PRN (16:45)
[2023-08-24] MEDS ORDERED: FLUCONAZOLE/SOD CHLORIDE 100 ML IV SCH (19:20)
[2023-08-25] VITALS (19 sets, daily range): BP systolic 119–153; BP diastolic 72–95
[2023-08-25] MEDS ORDERED: MEROPENEM 1,000 MG VIAL IV ONE (05:10)
[2023-08-25 05:35] LABS: BASOPHILS 0.1 % (0-2); EOSINOPHILS 0.2 % (0-6); HEMATOCRIT 34.5 % (35.0-50.0); HEMOGLOBIN 10.7 g/dL (12.0-18.0); LYMPHOCYTES 5.3 % (24-44); MCH 21.8 (27-36); MCV 70.2 fl (81-99); MONOCYTES 3.9 % (0-12); NEUTROPHILS 90.5 % (39-80); PLATELET COUNT 255 K/uL (140-440); RBC 4.91 M/ul (4.3-5.7); RDW 16.8 (10.5-15.0)
[2023-08-25 05:57] LABS: ALBUMIN 2.4 g/dL (3.4-5.0); ALBUMIN/GLOBULIN RATIO 0.59 (1.1-2.4); ANION GAP 10.4 (7-21); BILIRUBIN, TOTAL 0.5 ng/dL (0.2-1.0); BUN/CREATININE RATIO 15.78 (6.0-28.6); CALCIUM 8.2 mg/dL (8.5-10.1); CREATININE, SERUM 0.95 mg/dL (0.70-1.30); POTASSIUM 4.4 mmol/L (3.5-5.1); PROTEIN, TOTAL 6.5 g/dL (6.4-8.2)
[2023-08-25] MEDS ORDERED: MORPHINE SULFATE 4 MG/ML VIAL IV PRN (09:15)
[2023-08-25] MEDS ORDERED: LORazepam 2 MG/ML VIAL IV PRN (09:30)
[2023-08-26] VITALS (15 sets, daily range): BP systolic 102–138; BP diastolic 60–91
[2023-08-26 05:36] LABS: BASOPHILS 0.3 % (0-2); EOSINOPHILS 0.3 % (0-6); HEMATOCRIT 33.9 % (35.0-50.0); HEMOGLOBIN 10.5 g/dL (12.0-18.0); LYMPHOCYTES 9.9 % (24-44); MCH 21.6 (27-36); MCV 69.6 fl (81-99); MONOCYTES 5.5 % (0-12); PLATELET COUNT 257 K/uL (140-440); RBC 4.87 M/ul (4.3-5.7); RDW 16.6 (10.5-15.0)
[2023-08-26 05:53] LABS: ALBUMIN 2.2 g/dL (3.4-5.0); ALBUMIN/GLOBULIN RATIO 0.54 (1.1-2.4); ANION GAP 12.3 (7-21); BILIRUBIN, TOTAL 0.4 ng/dL (0.2-1.0); BUN/CREATININE RATIO 18.82 (6.0-28.6); CALCIUM 8.1 mg/dL (8.5-10.1); CREATININE, SERUM 0.85 mg/dL (0.70-1.30); POTASSIUM 4.3 mmol/L (3.5-5.1); PROTEIN, TOTAL 6.3 g/dL (6.4-8.2)
[2023-08-26] MEDS ORDERED: MEROPENEM 500 MG in SODIUM CHLORIDE 0.9% 100 ML IV SCH (14:00)
--- NOTE | 2023-08-26 15:10 | HP ---
[facility] [address], [place] [address] Signed ADMISSION DATE: 08/24/2023 ISSUE: Sudden onset abdominal pain following recent major operation with greater than expected intraabdominal free air. 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 Operation consisted of resection of the urachal cyst, partial bladder resection and segmental resection of the sigmoid colon with primary end-to-end anastomosis. Notably, he underwent colonoscopy prior to resection and he had a full bowel prep including oral and IV antibiotics. A drain was placed in the pelvis. The operation though difficult in relation to his obesity and the complexity of the abdominal mass was otherwise complication free. The patient was hospitalized following the operation with a bladder decompression and a Murrell catheter remains in place. A drain in the pelvis had been placed and showed only serosanguineous fluid and was removed prior to discharge. He has had bowel movements and has been tolerating oral intake well. Approximately on 1130 this evening, he had rather sudden sharp pain in the mid abdomen and though he has had bowel movements, but does not feel that he is able to pass gas. He presented to the emergency room where he was evaluated by Dr. Fiore. [place] [address] scan, which was performed which showed what was considered to be excessive free air for this far out from operation. Additionally, it was interpreted that there were some air bubbles and thickening of the proximal jejunum and circumferential wall thickening around the jejunum in questionable bubbles near the anastomotic site in the low pelvis. The patient has been hemodynamically stable --currently with a blood pressure of 137 systolic and a pulse of 81. He has had no nausea or vomiting, fever or chills. REVIEW OF SYSTEMS: Electronically Signed By: FLORENTINO OCAMPO MD 08/26/23 1510 PATIENT NAME: NANCY HI HISTORY AND PHYSICAL DATE OF : 75 REPORT #: [id number] PHYSICIAN: FLORENTINO OCAMPO MD PCP: SRINI FRANKLIN DO REPORT IS CONFIDENTIAL AND NOT TO BE RELEASED WITHOUT AUTHORIZATION [facility] [address] [place] [id number] Signed He denies any shortness of breath or chest pain. He has had no problem in use of his Murrell catheter with a leg bag. He has had bowel movements at home. PHYSICAL EXAMINATION: GENERAL: A morbidly obese white man who does not look toxic in the slightest. HEENT: Trachea is midline. Mucous membranes are moist. CHEST: Shows normal respiratory excursion without tachypnea. HEART: Regular without murmur. ABDOMEN: As previously is quite markedly obese. Midline incision appears to be healing well. There is no sign of erythema. Ramiro are in place. There is no wound drainage or erythema. The drain site on the left lower quadrant is dry and without sign of abnormality. LABORATORY STUDIES: Show white count of 16.8, hematocrit 39.5, platelets a 307,000. Chem profile is essentially normal. Glucose is 150. Liver enzymes are normal. The radiology report is reviewed in detail as were the images themselves. There is considered to be a moderate amount of free intraperitoneal air, a focal extraluminal gas collection in the left upper pelvis adjacent to the proximal sigmoid colon and a thick-walled inflamed proximal jejunum. Appearance is concerning for anastomotic leak. There is circumferential bowel wall thickening and surrounding inflammation in the proximal jejunum consider possibly reactive. There is a small amount of interloop fluid adjacent to the jejunum and potential early abscess. ASSESSMENT: Concern is maintained for possible anastomotic leak. This is slightly surprising to me, considering the bowel was well prepped, both proximal and distal segments were quite viable and a very easily performed end-to-end anastomosis undertaken with a hand-sewn technique. The drain has been removed prior to discharge yesterday and that would have been very helpful to have been maintained, but it had no drain findings of concern. He shows surprisingly little toxicity considering the possibility of anastomotic leak. He has had bowel function open to this point without problem. He is admitted and placed on broad-spectrum antibiotics. We will order a contrast study tomorrow morning (Gastrografin enema) to assess the integrity of the anastomosis. The interpretation of jejunal thickening and sophie enteric fluid is notable and may be indicative of anastomotic leak. If anastomotic leak is present, operative intervention will certainly be necessary and Electronically Signed By: FLORENTINO OCAMPO MD 08/26/23 1510 PATIENT NAME: NANCY HI HISTORY AND PHYSICAL DATE OF : 75 REPORT #: [id number] PHYSICIAN: FLORENTINO OCAMPO MD PCP: SRINI FRANKLIN DO REPORT IS CONFIDENTIAL AND NOT TO BE RELEASED WITHOUT AUTHORIZATION [facility] [address] [place] [id number] Signed he may still require a minimum laparoscopy to better ascertain the possibility of an enteric leak of some other source. For now, he is hemodynamically stable and measured and careful evaluation to assess for an enteric leak. MD GERALD Do/MODL /[id number] cc: Dr. Fiore Copies: ~ Electronically Signed By: FLORENTINO OCAMPO MD 08/26/23 1510 PATIENT NAME: NANCY HI HISTORY AND PHYSICAL DATE OF : 75 REPORT #: [id number] PHYSICIAN: FLORENTINO OCAMPO MD PCP: SRINI FRANKLIN DO REPORT IS CONFIDENTIAL AND NOT TO BE RELEASED WITHOUT AUTHORIZATION
[2023-08-27] VITALS (7 sets, daily range): BP systolic 125–132; BP diastolic 69–89
[2023-08-27] MEDS ORDERED: OXYCODONE/APAP 7.5/325 TAB PO PRN (17:15)
[2023-08-27] MEDS ORDERED: FAMOTIDINE 20 MG TAB PO SCH (21:00)
[2023-08-27] MEDS ORDERED: metroNIDAZOLE 250 MG TAB PO SCH (22:00)
[2023-08-28] VITALS (10 sets, daily range): BP systolic 114–135; BP diastolic 55–78
[2023-08-28 07:14] LABS: ANION GAP 12.9 (7-21); BUN/CREATININE RATIO 15.94 (6.0-28.6); CALCIUM 8.4 mg/dL (8.5-10.1); CREATININE, SERUM 0.69 mg/dL (0.70-1.30); MAGNESIUM 2.1 mg/dL (1.8-2.4); POTASSIUM 3.9 mmol/L (3.5-5.1)
[2023-08-28] MEDS ORDERED: AMOXICILLIN/CLAVULANATE K 875 MG TAB PO SCH (08:00)
[2023-08-28] MEDS ORDERED: FLUCONAZOLE 200 MG TAB PO SCH (09:00)
[2023-08-29] VITALS (12 sets, daily range): BP systolic 119–133; BP diastolic 71–84
[2023-08-29] MEDS ORDERED: ACETAMINOPHEN 500 MG TAB PO PRN (10:45)
[2023-08-29] MEDS ORDERED: IBUPROFEN 600 MG TAB PO PRN (10:45)
[2023-08-30] VITALS (10 sets, daily range): BP systolic 112–133; BP diastolic 71–80
[2023-08-30] MEDS ORDERED: TAMSULOSIN HCL 0.4 MG CAP PO SCH (12:56)
[2023-08-30] MEDS ORDERED: LACTATED RINGER'S 1,000 ML IV SCH (13:00)
--- NOTE | 2023-08-30 13:37 | OR ---
[facility] [address], [place] [address] Signed DATE OF OPERATION: 08/24/2023 SURGEON: Florentino Ocamop MD PREOPERATIVE DIAGNOSES: 1. Recent radical excision of infected urachal cyst with concurrent abdominal wall cellulitis and colo-urachal fistula including partial sigmoid colectomy with primary anastomosis and resection of bladder dome neoplasm. 2. Probable intraabdominal abscess related to a small anastomotic leak of colocolostomy. 3. Obesity. POSTOPERATIVE DIAGNOSES: 1. Recent radical excision of infected urachal cyst with concurrent abdominal wall cellulitis and colo-urachal fistula including partial sigmoid colectomy with primary anastomosis and resection of bladder dome neoplasm. 2. Probable intraabdominal abscess related to a small anastomotic leak of colocolostomy. 3. Obesity. PROCEDURE: 1. Exploratory laparotomy with drainage of deep intraabdominal abscesses. 2. Repair of posterior anastomotic leak including application of omental pedicle graft and fibrin glue. 3. Formation of diverting loop ileostomy. 4. Application of wound VAC to the abdominal wound. ANESTHESIA: General endotracheal, Florentino Muñoz CRNA and postoperative TAP block. ASSISTANTS: Nurse (Lani Montalvo RN and Rosario River RN). INDICATION: This 48-year-old white man was recently discharged from the hospital, having undergone a radical resection of an infected urachal cyst with associated abdominal wall cellulitis and concurrent incontinuity resection of portion of sigmoid, which had fistulized to the urachal cyst. Additionally, in the inferior aspect of the thickened and inflammed urachal cyst was a neoplastic appearing lesion penetrating to the dome of the bladder requiring partial cystectomy and placement of a decompressive fofana catheter. A drain was placed in the pelvis at the time of operation and primary Electronically Signed By: FLORENTINO OCAMPO MD 08/30/23 1337 PATIENT NAME: NANCY HI OPERATIVE REPORT DATE OF : 75 REPORT #: [id number] PHYSICIAN: FLORENTINO OCAMPO MD PCP: SRINI FRANKLIN DO REPORT IS CONFIDENTIAL AND NOT TO BE RELEASED WITHOUT AUTHORIZATION [facility] [address] [place], [place] [address] Signed colocolostomy was performed. Notably, the colon had been fully prepared including mechanical bowel prep, oral antibiotics and intravenous antibiotics. He went home only a day ago, with the drain removed as it had only minimal serous drainage. He presented to the emergency room early this morning with an episode of sharp sudden pain in the left mid abdomen at approximately 11:[address] Fiore confirmed a fair amount of intra-abdominal free air-- more than would be expected on postoperative day #6. There appeared to be some air bubbles near the area of recent colonic anastomosis in the left lower abdomen. He was admitted, given intravenous fluid resuscitation, IV antibiotics and this morning underwent an enema contrast study (Gastrografin), which upon body position change did confirm a small anastomotic leak. On the basis of this and with progressive symptoms with pain, I have recommended exploration of the abdomen, clearance of intra-abdominal abscess as appropriate and remedy of the anastomotic leak. This may include resection of the colon providing a Herb's procedure versus repair of the leak ( if discrete and considered likely to heal) which might include an omental pedicle graft, but in any case with fecal diversion likely from loop ileostomy. The patient and his significant other understand all of these issues and agreed to proceed. FINDINGS: Indeed there was generalized peritonitis on the left side of the abdomen with complete sparing on the right side. There was interloop abscess fluid on the left side at the base of the mesentery with secondary inflammation and thickening of the jejunal loops. The offending problem was confirmed to be the posterior aspect of the colocolostomy. Both proximal and distal segments were quite viable in every way, but the leak with the bilious fluid was quite well characterized and ultimately repaired with interrupted silk suture as well as application of fibrin glue and an omental pedicle patch to that site. There appeared to be no further leakage. A drain was placed near by and on the right side of the abdomen as well. A diverting loop ileostomy was performed on the right side of the abdomen. The bowel loops that had been involved in the inflammatory fluid and abscess were cleansed and irrigation undertaken throughout. A right super hepatic Catarino drain was placed as well as a left pericolic gutter drain in the region of the recent savage so as to control enteric output as necessary. So as to stabilize the recently opened and closed fascial layer, a wound VAC device was placed in the depths of his thick abdominal pannus adjacent to the fascia itself. A Fofana catheter was already in place allowing for decompression of the bladder and the previous partial cystectomy remained in place. Electronically Signed By: FLORENTINO OCAMPO MD 08/30/23 1336 PATIENT NAME: NANCY HI OPERATIVE REPORT DATE OF : 75 REPORT #: [id number] PHYSICIAN: FLORENTINO OCAMPO MD PCP: SRINI FRANKLIN DO REPORT IS CONFIDENTIAL AND NOT TO BE RELEASED WITHOUT AUTHORIZATION [address] [address] Signed DESCRIPTION OF PROCEDURE: The patient was brought to the operating room, given a general endotracheal anesthetic. The hemoclips were removed and the abdomen was prepared with a Betadine based solution. Preop antibiotic meropenem had been given. After preparation, the thick abdominal pannus was and the midline fascia was identified and intact. Prolene suture used for closure. Previously was removed and the abdomen entered. Immediately noted was inflammatory fluid. This fluid was Gram stain and cultured showing multiple white cells, but no organisms at that point. Bowel loops were and had a fibrinous peel over them as would be typical nearly a week out from the initial operation. The small bowel was retracted to the right side of the abdomen and close inspection of the colonic anastomosis undertaken. On the anterior aspect, the anastomosis appeared completely viable and intact in every way. Manipulations lateral to this showed no sign of abnormality, but medial, superior and posterior and an area clearly showing very small bile leak was noted. Irrigation was undertaken in this area and the colonic segments appeared to be viable. The reason for the anastomotic failure is uncertain. Several interrupted 3-0 silk sutures were used to secure the anastomosis once again taking generous bites of surrounding soft tissue. An omental pedicle graft was developed based on the left side of the omentum, freeing a well-vascularized tongue of omentum, having secured the vascular arcade as necessary with silk ties. This omental pedicle flap was taken around the proximal jejunum to be situated at the base of the sigmoid mesentery. 3-0 silk sutures were used to affix the omentum to the offending anastomotic leak site after application of aerosolized fibrin glue to the area more fully. Through a left lower quadrant incision, a 7 mm flat Catarino drain was placed and insinuated behind the sigmoid into the region should additional leakage occur. The abdomen was irrigated with additional sterile saline freeing up any inflammatory entrapped loops of fluid. On the right side of the abdomen, the right colon was identified. The appendix was secondarily inflamed, but not primarily inflamed and left in situ. The terminal ileum was identified by the antimesenteric fat pad of tree. Small bowel was run from the cecum more proximally and small bowel to allow for a diverting loop ileostomy was identified. The mesentery to the small bowel was somewhat thickened based on the patient's underlying obesity, but the area reasonably mobile at least 16 inches proximal to the ileocecal valve itself was secured with a suture marking it for ileostomy. Through a right lower quadrant stab incision, a 7 mm flat Catarino was placed and secured the skin with nylon suture after placing the apex of the drain over the right dome of Electronically Signed By: FLORENTINO OCAMPO MD 08/30/23 1337 PATIENT NAME: NANCY HI OPERATIVE REPORT DATE OF : 75 REPORT #: [id number] PHYSICIAN: FLORENTINO OCAMPO MD PCP: SRINI FRANKLIN DO REPORT IS CONFIDENTIAL AND NOT TO BE RELEASED WITHOUT AUTHORIZATION [address] [address] Signed the liver. Attention was turned towards creation of a loop ileostomy for diversion. Edmar clamps were applied to the fascia of the midline and withdrawn medially. A disc of skin was excised in the upper abdomen directly over the right rectus abdominis area. The skin was excised and subcutaneous tissue divided with electrocautery. The rectus sheath was identified and incised in a cruciate configuration revealing the underlying rectus abdominis muscle. These muscles were and the posterior rectus sheath and its attendant peritoneum was similarly incised longitudinally. Using a [place] clamp, a segment of ileum was delivered into the wound. Notably, the subcutaneous tissue was quite thick given his morbid obesity and various maneuvers were used to more fully deliver adequate ileum to perform the diverting loop ileostomy. Once a generous amount of ileum had been delivered to the ostomy site, irrigation was undertaken once again and the midline fascia closed. This was undertaken in a running bidirectional fashion with number one PDS suture. The drains were attached to bulb suction. So as to stabilize the deep fascial layer and the underlying subcutaneous tissue, a wound VAC sponge was later placed into the depths of the wound and later applied to suction. It is recalled that he had a very thick abdominal pannus. Attention was turned towards maturation of the ileostomy. Using 3-0 Vicryl suture, the loop ileostomy was matured to the dermis trying as much as possible to maintain a projected nipple superiorly. Transverse division of the ileum allowed for mucosal inversion superiorly and the apposition inferiorly. Though the projection was not as much as I had hoped, it was certainly adequate for the purpose at hand. Careful and gentle interrogation of the proximal and distal limbs showed a good passage into the peritoneal cavity. At that point, the wound VAC was applied to the mid abdominal wound and an ostomy wafer and appliance applied to the ileostomy itself. The ileostomy was viable despite its relatively long coarse through the subcutaneous tissue. TAP blocks were then performed by the planer operator / grader and he was transferred to the recovery room in good condition having suffered no complications. Sponge, needle, and instrument counts were reported as correct x3. Electronically Signed By: FLORENTINO OCAMPO MD 08/30/23 0937 PATIENT NAME: NANCY HI OPERATIVE REPORT DATE OF : 75 REPORT #: [id number] PHYSICIAN: FLORENTINO OCAMPO MD PCP: SRINI FRANKLIN DO REPORT IS CONFIDENTIAL AND NOT TO BE RELEASED WITHOUT AUTHORIZATION [facility] [address] [facility] [place], [place] [address] Signed MD GERALD Do/NITO /[id number] cc: Dr. Otilia Fiore Copies: ~ Electronically Signed By: FLORENTINO OCAMPO MD 08/30/23 1337 PATIENT NAME: NANCY HI OPERATIVE REPORT DATE OF : 75 REPORT #: [id number] PHYSICIAN: FLORENTINO OCAMPO MD PCP: SRINI FRANKLIN DO REPORT IS CONFIDENTIAL AND NOT TO BE RELEASED WITHOUT AUTHORIZATION
[2023-08-31] VITALS (11 sets, daily range): BP systolic 120–129; BP diastolic 70–76
[2023-08-31] MEDS ORDERED: HYDROmorphone HCL 2 MG/ML VIAL ONE (14:30)
[2023-08-31] MEDS ORDERED: SODIUM CHLORIDE 0.9% 20 ML IV ONE (14:33)
[2023-08-31] MEDS ORDERED: propofoL 200 MG/20 ML VIAL ONE ×2 (14:33→15:57)
[2023-08-31] MEDS ORDERED: LIDOCAINE HCL 2% 5 ML SDV ONE (14:33)
[2023-08-31] MEDS ORDERED: DEXAMETHASONE SOD PHOS 4 MG/ML VIAL ONE ×2 (14:35)
[2023-08-31] MEDS ORDERED: KETOROLAC TROMETHAMINE 30 MG/ML VIAL ONE (14:35)
[2023-08-31] MEDS ORDERED: ondansetron HCL 4 MG/2 ML VIAL ONE (14:35)
[2023-08-31] MEDS ORDERED: KETAMINE in NS 50 MG/5 ML SYR ONE (15:51)
[2023-08-31] MEDS ORDERED: NALOXONE HCL 0.4 MG SYR IV PRN (16:00)
[2023-08-31] MEDS ORDERED: fentaNYL citrate 50 MCG/ML SDV IV PRN (16:00)
[2023-08-31] MEDS ORDERED: IBLOOD GLUCOSE TEST STRIP 1 EA TEST VI PRN (16:00)
[2023-08-31] MEDS ORDERED: ondansetron HCL 4 MG/2 ML VIAL IV PRN (16:00)
[2023-09-01 01:35] VITALS: BP 124/71
[2023-09-01 06:36] VITALS: BP 140/79
[2023-09-01 09:49] VITALS: BP 132/80
[2023-09-01 13:41] VITALS: BP 125/75
[2023-09-01] MEDS ORDERED: AMOX TR-K CLV1 EAC1 PO (14:41)
[2023-09-01] MEDS ORDERED: FLUCONAZOLE200 MG PO (14:42)
[2023-09-01] MEDS ORDERED: IBUPROFEN600 MG PO (14:42)
[2023-09-01] MEDS ORDERED: TAMSULOSIN HCL0.4 MG PO (14:42)
[2023-09-01] MEDS ORDERED: METRONIDAZOLE250 MG PO (14:42)
[2023-09-01] MEDS ORDERED: OXYCODON-ACETA1 EAC2 PO (14:42)
[2023-09-01] MEDS ORDERED: ACETAMINOPHEN500 MG PO (14:43)
[2023-09-01 15:58] VITALS: BP 119/67
--- NOTE | 2023-09-03 14:09 | OR ---
[facility] [address] [place], [place] [address] Signed DATE OF OPERATION: 08/31/2023 SURGEON: Florentino Ocampo MD PREOPERATIVE DIAGNOSES: 1. History of intra-abdominal abscess status post drainage, diverting loop ileostomy placement of drains and placement of wound VAC after the fascial closure. 2. Delayed primary closure of midline incision 25 cm. 3. Morbid obesity. POSTOPERATIVE DIAGNOSES: 1. History of intra-abdominal abscess status post drainage, diverting loop ileostomy placement of drains and placement of wound VAC after the fascial closure. 2. Delayed primary closure of midline incision 25 cm. 3. Morbid obesity. PROCEDURES: 1. Delayed primary closure of abdominal wall 25 cm (ventral midline) closed with 2-0 nylon suture. 2. Removal of Murrell catheter. 3. Removal of pelvic drain. ANESTHESIA: Local with monitored anesthesia care, Anthony Saucedo CRNA and local 10 mL of 0.25% Marcaine with epinephrine. INDICATIONS: A 48-year-old morbidly obese white man was admitted on August 24, 2023 with findings of intra-abdominal abscess and small colonic anastomotic leak. The patient had undergone several days previously to that a complex operation including urachal cyst resection (infected), partial bladder resection and segmental sigmoid resection with primary anastomosis. The patient had done well during the operation and a pelvic drain was removed prior to discharge. He presented back within the first 24 to 48 hours with abdominal pain on the left side and was found to have a small leak at the colonic anastomosis based on a Gastrografin enema study. Operation consisted of laparotomy, repair of the anastomotic area with using omental pedicle flap and a diverting loop ileostomy. The drain placed in the area has cleared completely and other on the right side has cleared and was removed. He had ongoing decompression of his bladder with a Murrell device following partial cystectomy. Electronically Signed By: FLORENTINO OCAMPO MD 09/03/23 1409 PATIENT NAME: NANCY HI OPERATIVE REPORT DATE OF : 75 REPORT #: [id number] PHYSICIAN: FLORENTINO OCAMPO MD PCP: SRINI FRANKLIN DO REPORT IS CONFIDENTIAL AND NOT TO BE RELEASED WITHOUT AUTHORIZATION [facility] [address] [place], [place] [address] Signed This morning, imaging study showed the repaired bladder to be completely watertight. There was some retained contrast in the rectum from his previous imaging study, which is of no real concern at this time. A wound VAC had been applied to the depths of his abdominal wound which is 25 cm in length and approximately 10 cm in depth based on his obesity. Granulation of the wound is noted as the wound VAC has been in place for about seven days. I have recommended removal of the Murrell catheter and the pelvic drain on the left side as well as closure of the skin for delayed primary closure as the wound edges are granulating and the midline fascia appears to be well stabilized. The risk of bleeding, infection, need for opening of the wound, and other unforeseen complication was reviewed with him. He understands and wished to proceed. FINDINGS: Good granulation was noted on the fatty layer of the abdominal wound. Closure was undertaken without problem using vertical interrupted mattress 2-0 nylon suture. A Murrell catheter was removed without problem and the left pelvic drain which had crystal clear serous fluid was also removed. The right-sided ileostomy was functioning well. DESCRIPTION OF PROCEDURE: The patient was brought to the operating room and given intravenous sedation. The patient is on a persistent regimen of Augmentin and Flagyl antibiotic. The patient was given intravenous sedation and the wound VAC carefully and gently removed showing good granulation of the fatty tissue and good apposition of the midline fascia in the depths of the wound. The ostomy appliance was isolated with an adhesive drape as well as a left-sided pelvic drain. The wound was then prepared with Betadine based solution including the skin and depths of the wound. The wound was then sterilely draped. A 10 mL of 0.25% Marcaine with epinephrine was injected along the wound edge to allow for more painless closure. Using interrupted 2-0 nylon suture in a vertical mattress configuration, the wound was closed. It was measured at 25 cm in length in total. At conclusion, an Acticoat dressing was applied to the now closed wound. The left pelvic drain was removed and the Murrell catheter was removed as well. The patient was ultimately taken to the recovery room in good condition having suffered no complications. Sponge, needle, and instrument counts were reported as correct x3. MD GERALD Do/VICTORINOL Electronically Signed By: FLORENTINO OCAMPO MD 09/03/23 1409 PATIENT NAME: NANCY HI OPERATIVE REPORT DATE OF : 75 REPORT #: [id number] PHYSICIAN: FLORENTINO OCAMPO MD PCP: SRINI FRANKLIN DO REPORT IS CONFIDENTIAL AND NOT TO BE RELEASED WITHOUT AUTHORIZATION [place] [id number] Signed /[id number] cc: Dr. Otilia Fiore Copies: ~ Electronically Signed By: FLORENTINO OCAMPO MD 09/03/23 1409 PATIENT NAME: NANCY HI OPERATIVE REPORT DATE OF : 75 REPORT #: [id number] PHYSICIAN: FLORENTINO OCAMPO MD PCP: SRINI FRANKLIN DO REPORT IS CONFIDENTIAL AND NOT TO BE RELEASED WITHOUT AUTHORIZATION
--- NOTE | 2023-09-03 14:10 | DS ---
[facility] [address], [place] [address] Signed ADMISSION DATE: 08/24/2023 DISCHARGE DATE: 09/01/2023 REASON FOR ADMISSION: Intra-abdominal abscess related to leakage at colocolostomy anastomosis. 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 Operation consisted of resection of the urachal cyst, partial bladder resection and segmental resection of the sigmoid colon in continuity with the urachal cyst and its associated fistula. A primary end-to-end colocolostomy was performed. It is notable he underwent colonoscopy prior to resection and a full bowel prep including oral and IV antibiotics were administered prior to resection. A drain was placed in the pelvis as well. The patient was hospitalized and discharged home with a Murrell catheter in place for bladder decompression. The pelvic drain that had been placed had been removed prior to discharge. The patient presented to the emergency room late in the evening, was evaluated by Dr. Fiore which showed him to have complaints of left-sided abdominal pain and elevated white count of 16,000. A CT scan was performed showing excessive free air for six days out from operation. He is considered possibly to have anastomotic leak or other similar problem. He is admitted for further evaluation and care. The patient was hemodynamically stable with a pulse of 81 and a systolic pressure of 137. He was morbidly obese, but did not look toxic. Trachea was midline. Mucous membranes moist. Chest clear. Heart regular without murmur. Abdomen obese, but tender in the left lower abdomen. The midline incision was healing well. Ramiro were in place. There is no wound drainage. The drain site in the left lower quadrant was dry and without sign of abnormality. LABORATORY DATA: White count was 16.8, hematocrit 39.5, platelets 307,000 Chem profile normal. HOSPITAL COURSE: The patient was admitted, given intravenous antibiotics. The following morning, he was feeling better. A Gastrografin enema was performed which showed an anastomotic leak as suspected. Electronically Signed By: FLORENTINO OCAMPO MD 09/03/23 1410 PATIENT NAME: NANCY IH DISCHARGE SUMMARY DATE OF : 75 REPORT #: [id number] PHYSICIAN: FLORENTINO OCAMPO MD PCP: RICARDO FRANKLIN DO REPORT IS CONFIDENTIAL AND NOT TO BE RELEASED WITHOUT AUTHORIZATION [facility] [address], [place] [address] Signed On August 24, 2023, he underwent opening of the midline incision through his thick abdominal wall pannus demonstrating considerable intra-abdominal inflammatory fluid on the left side of the abdomen and an abscess deep within the abdomen and pelvis. The cause of the abscess no doubt was a minute but real area of leakage in the colonic anastomosis posteriorly. This was repaired with interrupted silk sutures and an omental patch as well as fibrin glue. A diverting loop ileostomy was performed and abdominal wound VAC applied to the abdominal wound to stabilize the fascia itself given the significant obesity. Postoperatively he was maintained with broad-spectrum antibiotics. Drainage at the anastomotic site showed some inflammatory fluid initially, but this cleared. Soon thereafter, his ileostomy was working quite well diverting fecal material completely. Two drains had been placed, one in the right pericolic area and the other in the left pericolic area. The right drain was removed and later the left drain was removed. A retrograde cystogram was performed through his Murrell catheter to ascertain integrity of his bladder closure from previous operation and there was no sign of leak. There was some residual contrast in the rectum related to his contrast study prior to formation of the ileostomy. The pelvic drain and Murrell were removed on the day that he underwent secondary closure of his midline incision in the operating room under an anesthetic approach. By the day of discharge, he is ambulating well, has no drains in place. Midline fascia is closed and his ileostomy is working well. DISCHARGE MEDICATIONS: Will include: 1. Augmentin 500 mg p.o. b.i.d., #10. 2. Fluconazole 200 mg p.o. daily, #5. 3. Flagyl 250 mg p.o. t.i.d., #15. 4. Tamsulosin 0.8 mg p.o. daily . 5. Ibuprofen 600 mg p.o. q.6 hours as needed for pain, #30. 6. Percocet 7.5/325 one to two q.6 hours as needed for pain, #6. 7. Tylenol plain 500 mg two tablets p.o. q.6 hours as needed for pain, #30. 8. He will continue his usual medication of pantoprazole 40 mg daily. FOLLOW UP: He is return to see me in approximately three weeks. We will take down the ileostomy after the anastomotic area of the sigmoid colon has fully healed. This will be determined based on the contrast study. He will need to be off work for the time being given his ileostomy and other areas attendant to his recovery. He is instructed to shower on a daily basis and allow water to hit all of the previous wounds including the Electronically Signed By: FLORENTINO OCAMPO MD 09/03/23 0467 PATIENT NAME: NANCY HI DISCHARGE SUMMARY DATE OF : 75 REPORT #: [id number] PHYSICIAN: FLORENTINO OCAMPO MD PCP: RICARDO FRANKLIN DO REPORT IS CONFIDENTIAL AND NOT TO BE RELEASED WITHOUT AUTHORIZATION [facility] [address] [place] [id number] Signed ileostomy. The ileostomy will be changed on a routine basis and he has capability of doing that. DISCHARGE DIAGNOSES: 1. Intra-abdominal abscess associated with colocolostomy (anastomotic) leak status post laparotomy, drainage of intra-abdominal abscess, repair of anastomotic leak including omental patch and fibrin glue and suture and diverting loop ileostomy and application of wound VAC device. 2. Recent laparoscopy, laparotomy, resection of complex urachal cyst with colourachal fistula with resection of sigmoid colon in continuity as primary end-to-end anastomosis and partial bladder resection with placement of decompressive Murrell catheter. 3. Morbid obesity. MD GERALD Do/VICTORINOL /[id number] cc: MD Ricardo Borjas DO Dr. Servin Copies: HINA WHITAKER MD, ARIAN DO ~ Electronically Signed By: FLORENTINO OCAMPO MD 09/03/23 1410 PATIENT NAME: NANCY HI DISCHARGE SUMMARY DATE OF : 75 REPORT #: [id number] PHYSICIAN: FLORENTINO OCAMPO MD PCP: RICARDO FRANKLIN DO REPORT IS CONFIDENTIAL AND NOT TO BE RELEASED WITHOUT AUTHORIZATION
== END 2023-09-01 16:10 | disposition home or self-care (01) | DRG 329 ==
LOC: ED 23:18 → MS 08-24 02:00 → CCU 08-24 17:55 → MS 08-27 15:50
PROVIDERS: Family Medicine; ADMIT Surgery; ATTEND Surgery
PROC: 0D9W00Z Drainage of Peritoneum with Drainage Device, Open Approach (ICD-10-PCS; 2023-08-24)
PROC: 0DQN0ZZ Repair Sigmoid Colon, Open Approach (ICD-10-PCS; 2023-08-24)
PROC: 0D1B0Z4 Bypass Ileum to Cutaneous, Open Approach (ICD-10-PCS; principal; 2023-08-24 15:00)
PROC: 0HQ7XZZ Repair Abdomen Skin, External Approach (ICD-10-PCS; 2023-08-31)
DX: K94.03 Colostomy malfunction (principal); K65.1 Peritoneal abscess; Z68.41 Body mass index [BMI] 40.0-44.9, adult; E66.01 Morbid (severe) obesity due to excess calories; C67.1 Malignant neoplasm of dome of bladder; F17.210 Nicotine dependence, cigarettes, uncomplicated; T81.89XA Other complications of procedures, not elsewhere classified, initial encounter; Z90.49 Acquired absence of other specified parts of digestive tract
CPT/HCPCS: 00800; 00840; 36415; 74177; 74270; 74430; 76942; 80048; 80053; 81001; 83605; 83735; 85025; 85060; 87040; 87070; 87075; 87205; A9270; J0131; J0330; J1100; J1160; J1170; J1450; J1720; J1885; J2001; J2060; J2185; J2250; J2270; J2405; J2704; J2765; J2795; J3010; J3490; J7030; J7121; Q9958; Q9967

== ENCOUNTER 2023-09-15 15:23 | Emergency (ER) | payer OTHER ==
[~2023-09-15] VITALS: Ht 177.8 cm; Wt 120.6 kg
[~2023-09-15 15:23] MED LIST changes: +FLUCONAZOLE200 MG PO; +TAMSULOSIN HCL0.4 MG PO
--- OUTSIDE RECORDS SUMMARY | 2023-09-15 15:25 | XMS ---
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 EKeily VISIT COUNT (12 MO.) Connie Francoisony Harika TOTAL 5 NOTE: Visits indicate total known visits. ED/UCC VISIT TRACKING (12 MO.) 09/15/2023 15:[address] [facility] [place] TYPE: Emergency COMPLAINT: - WOUND CHECK 09/08/2023 14:26 [facility] [place] TYPE: Emergency COMPLAINT: - POST OP PROBLEM DIAGNOSES: - Colostomy status - Nicotine dependence, unspecified, uncomplicated - Other fpc (current) drug therapy - Other specified postprocedural states - Unspecified abdominal pain 08/23/2023 23:18 [facility] [place] TYPE: Emergency COMPLAINT: - POST OP ISSUES 08/15/2023 20:33 [facility] [place] TYPE: Emergency COMPLAINT: - ABDOMINAL PAIN 07/24/2023 03:56 [facility] [place] TYPE: Emergency COMPLAINT: - SOB DIAGNOSES: - Encounter for screening for COVID-19 - Nicotine dependence, unspecified, uncomplicated - Palpitations - Shortness of breath - Tachycardia, unspecified INPATIENT VISIT TRACKING (12 MO.) 08/24/2023 02:00 [facility] [place] TYPE: Medical Surgical COMPLAINT: - POSSIBLE ANASTOMOTIC LEAK DIAGNOSES: - Acquired absence of other specified parts of digestive tract - Acquired absence of other specified parts of digestive tract - Acute respiratory failure with hypoxia - Body mass index [BMI] 40.0-44.9, adult - Body mass index [BMI] 40.0-44.9, adult - Colostomy malfunction - Malignant neoplasm of dome of bladder - Malignant neoplasm of dome of bladder - Morbid (severe) obesity due to excess calories - Morbid (severe) obesity due to excess calories - Nicotine dependence, cigarettes, uncomplicated - Nicotine dependence, cigarettes, uncomplicated - Other complications of procedures, not elsewhere classified, initial encounter - Other complications of procedures, not elsewhere classified, initial encounter - Peritoneal abscess - Peritoneal abscess - Sepsis, unspecified organism - Severe sepsis without septic shock 08/15/2023 22:[address] [facility] [place] TYPE: Medical Surgical COMPLAINT: - INFECTED URACHAL CYST DIAGNOSES: - Body mass index [BMI] 40.0-44.9, adult - Body mass index [BMI] 40.0-44.9, adult - Cellulitis of abdominal wall - Cellulitis of abdominal wall - Cutaneous abscess of abdominal wall - Cutaneous abscess of abdominal wall - Diverticulosis of large intestine without perforation or abscess without bleeding - Diverticulosis of large intestine without perforation or abscess without bleeding - Essential (primary) hypertension - Essential (primary) hypertension - Fistula of intestine - Laparoscopic surgical procedure converted to open procedure - Laparoscopic surgical procedure converted to open procedure - 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
[2023-09-15] MEDS ORDERED: CALMOSEPTINE O3.5 GM TOP (16:18)
[2023-09-15 18:30] VITALS: BP 142/97
== END 2023-09-15 18:30 | disposition home or self-care (01) ==
LOC: ED 15:23
DX: K94.11 Enterostomy hemorrhage (principal); Y83.8 Other surgical procedures as the cause of abnormal reaction of the patient, or of later complication, without mention of misadventure at the time of the procedure; F17.200 Nicotine dependence, unspecified, uncomplicated; Z79.899 Other long term (current) drug therapy
CPT/HCPCS: 99283

== ENCOUNTER 2023-09-18 19:28 | Emergency (ER) | payer OTHER ==
[~2023-09-18] VITALS: Ht 177.8 cm; Wt 122.4 kg
[~2023-09-18 19:28] MED LIST changes: +CALMOSEPTINE O3.5 GM TOP
--- OUTSIDE RECORDS SUMMARY | 2023-09-18 19:29 | XMS ---
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 PHONE: [phone] LELE PALUMBO [facility] Current PHONE: Unknown Jimbo has no Care Guidelines for this patient. EKeily VISIT COUNT (12 MO[address] [facility] TOTAL 6 NOTE: Visits indicate total known visits. ED/UCC VISIT TRACKING (12 MO.) 09/18/2023 19:28 [facility] [place] TYPE: Emergency COMPLAINT: - POST OP ISSUE 09/15/2023 15:24 [facility] [place] TYPE: Emergency COMPLAINT: - WOUND CHECK DIAGNOSES: - Enterostomy hemorrhage - Nicotine dependence, unspecified, uncomplicated - Other engine maintenance mechanic (current) drug therapy - Other surgical procedures as the cause of abnormal reaction of the patient, or of later complication, without mention of misadventure at the time of the procedure 09/08/2023 14:26 [facility] [place] TYPE: Emergency COMPLAINT: - POST OP PROBLEM DIAGNOSES: - Colostomy status - Nicotine dependence, unspecified, uncomplicated - Other engine maintenance mechanic (current) drug therapy - Other specified postprocedural [...] Severe sepsis without septic shock 08/15/2023 22:09 [facility] TYPE: Medical [...] (postprocedural) (postinfection) - Peritoneal adhesions (postprocedural) (postinfection) [email or web address]
[2023-09-18 21:14] VITALS: BP 132/74
== END 2023-09-18 21:14 | disposition home or self-care (01) ==
LOC: ED 19:28
DX: L76.22 Postprocedural hemorrhage of skin and subcutaneous tissue following other procedure (principal); F17.200 Nicotine dependence, unspecified, uncomplicated; Z79.899 Other long term (current) drug therapy
CPT/HCPCS: 12001; 80053; 85025; 99283-25

== ENCOUNTER 2023-09-30 04:46 | Observation (INO) | payer OTHER ==
[~2023-09-30] VITALS: Ht 177.8 cm; Wt 117.0 kg
[2023-09-30] VITALS (8 sets, daily range): BP systolic 101–147; BP diastolic 80–97
[2023-09-30] MEDS ORDERED: LACTATED RINGER'S 1,000 ML IV ONE ×2 (05:00→05:45)
[2023-09-30 05:13] LABS: MCHC 31.6 g/dl (30-36)
[2023-09-30 05:15] LABS: BASOPHILS 0.8 % (0-2); EOSINOPHILS 1.4 % (0-6); HEMATOCRIT 45.7 % (35.0-50.0); HEMOGLOBIN 14.4 g/dL (12.0-18.0); LYMPHOCYTES 25.8 % (24-44); MCV 69.6 fl (81-99); MONOCYTES 6.8 % (0-12); NEUTROPHILS 65.2 % (39-80); PLATELET COUNT 326 K/uL (140-440); RBC 6.56 M/ul (4.3-5.7); RDW 17.7 (10.5-15.0)
[2023-09-30 05:26] LABS: ALBUMIN 4.6 g/dL (3.4-5.0); ALBUMIN/GLOBULIN RATIO 0.84 (1.1-2.4); ANION GAP 21.8 (7-21); BILIRUBIN, TOTAL 0.3 ng/dL (0.2-1.0); BUN/CREATININE RATIO 11.91 (6.0-28.6); CALCIUM 9.8 mg/dL (8.5-10.1); CREATININE, SERUM 2.35 mg/dL (0.70-1.30); MAGNESIUM 1.7 mg/dL (1.8-2.4); POTASSIUM 3.8 mmol/L (3.5-5.1); PROTEIN, TOTAL 10.1 g/dL (6.4-8.2)
[2023-09-30] MEDS ORDERED: MAGNESIUM OXIDE 400 MG TABLET PO ONE (05:45)
[2023-09-30] MEDS ORDERED: LACTATED RINGER'S 1,000 ML IV SCH (05:45)
[2023-09-30] MEDS ORDERED: FAMOTIDINE 20 MG/ 2 ML VIAL IV SCH (09:00)
[2023-09-30 10:57] LABS: ANION GAP 18.8 (7-21); BUN/CREATININE RATIO 16.88 (6.0-28.6); CALCIUM 9.6 mg/dL (8.5-10.1); CREATININE, SERUM 1.54 mg/dL (0.70-1.30); POTASSIUM 3.8 mmol/L (3.5-5.1)
[2023-09-30] MEDS ORDERED: PANTOPRAZOLE SODIUM 40 MG TABEC PO SCH (11:07)
[2023-09-30] MEDS ORDERED: ondansetron HCL 4 MG/2 ML VIAL IV PRN (11:15)
[2023-09-30] MEDS ORDERED: ACETAMINOPHEN 325 MG TAB PO PRN (11:15)
[2023-09-30] MEDS ORDERED: PROCHLORPERAZINE EDISYLATE 10 MG/2 ML VIAL IV PRN (11:15)
[2023-09-30] MEDS ORDERED: PHARMACY RENAL DOSE ADJUSTMENT 1 DOSE MISC PO SCH (12:00)
[2023-09-30 17:18] LABS: ANION GAP 19.7 (7-21); BUN/CREATININE RATIO 17.77 (6.0-28.6); CALCIUM 9.1 mg/dL (8.5-10.1); CREATININE, SERUM 1.35 mg/dL (0.70-1.30); POTASSIUM 3.7 mmol/L (3.5-5.1)
--- OUTSIDE RECORDS SUMMARY | 2023-09-30 20:53 | XMS ---
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 Current PHONE: Unknown Jimbo has no Care Guidelines for this patient. EKeily VISIT COUNT (12 MO.) [address] [place], [place] [address] TOTAL 7 NOTE: Visits indicate total known visits. ED/UCC VISIT TRACKING (12 MO.) 09/30/2023 04:46 [facility] [place] TYPE: Emergency COMPLAINT: - POST OP PROBLEM 09/18/2023 19:28 [facility] [place] TYPE: Emergency COMPLAINT: - POST OP ISSUE DIAGNOSES: - Nicotine dependence, unspecified, uncomplicated - Other residential (current) drug therapy - Postprocedural hemorrhage of skin and subcutaneous tissue following other procedure 09/15/2023 15:24 [facility] [place] TYPE: Emergency COMPLAINT: - WOUND CHECK DIAGNOSES: - Enterostomy hemorrhage - Nicotine dependence, unspecified, uncomplicated - Other rat exterminator (current) drug therapy - Other surgical procedures as the cause of abnormal reaction of the patient, or of later complication, without mention of misadventure at the time of the procedure 09/08/2023 14:26 [facility] TYPE: Emergency COMPLAINT: - POST OP PROBLEM DIAGNOSES: - Colostomy status - Nicotine dependence, unspecified, uncomplicated - Other residential (current) drug therapy - Other specified postprocedural [...] (postprocedural) (postinfection) - Peritoneal adhesions (postprocedural) (postinfection) [email or web address]
[2023-09-30] MEDS ORDERED: MELATONIN 3 MG TAB PO PRN (21:00)
[2023-09-30 22:19] LABS: ANION GAP 18.8 (7-21); BUN/CREATININE RATIO 17.51 (6.0-28.6); CALCIUM 9.1 mg/dL (8.5-10.1); CREATININE, SERUM 1.37 mg/dL (0.70-1.30); POTASSIUM 3.8 mmol/L (3.5-5.1)
[2023-09-30] MEDS ORDERED: OXYCODONE HCL 5 MG TAB PO PRN (22:30)
[2023-10-01 02:12] VITALS: BP 120/89
[2023-10-01 06:09] LABS: HEMOGLOBIN 12.6 g/dL (12.0-18.0); RDW 17.5 (10.5-15.0)
[2023-10-01 06:11] LABS: BASOPHILS 0.4 % (0-2); EOSINOPHILS 1.8 % (0-6); HEMATOCRIT 40.4 % (35.0-50.0); LYMPHOCYTES 33.3 % (24-44); MCH 21.6 (27-36); MCHC 31.1 g/dl (30-36); MCV 69.5 fl (81-99); MONOCYTES 8.3 % (0-12); NEUTROPHILS 56.2 % (39-80); PLATELET COUNT 284 K/uL (140-440); RBC 5.81 M/ul (4.3-5.7)
[2023-10-01 06:12] VITALS: BP 124/84
[2023-10-01 06:13] VITALS: BP 120/89
[2023-10-01 06:24] LABS: ALBUMIN 3.8 g/dL (3.4-5.0); ALBUMIN/GLOBULIN RATIO 0.81 (1.1-2.4); ANION GAP 17.5 (7-21); BILIRUBIN, TOTAL 0.3 ng/dL (0.2-1.0); BUN/CREATININE RATIO 15.2 (6.0-28.6); CALCIUM 9.2 mg/dL (8.5-10.1); CREATININE, SERUM 1.25 mg/dL (0.70-1.30); MAGNESIUM 1.7 mg/dL (1.8-2.4); PHOSPHORUS, INORGANIC 3.3 mg/dL (2.5-4.9); POTASSIUM 3.5 mmol/L (3.5-5.1); PROTEIN, TOTAL 8.5 g/dL (6.4-8.2)
[2023-10-01] MEDS ORDERED: MAGNESIUM CHLORIDE 64 MG TABCR PO ONE (08:30)
[2023-10-01] MEDS ORDERED: ENOXAPARIN SODIUM 40 MG/0.4 ML SYR SUB-Q SCH (09:00)
[2023-10-01] MEDS ORDERED: MAGNESIUM100 MG PO (09:12)
[2023-10-01 09:17] VITALS: BP 132/82
[2023-10-01] MEDS ORDERED: OXYCODONE HCL5 MG PO (09:18)
[2023-10-01 10:35] VITALS: BP 121/89
[2023-10-01 10:40] VITALS: BP 121/89
== END 2023-10-01 10:40 | disposition home or self-care (01) ==
LOC: ED 04:46 → MS 04:47
PROVIDERS: Internal Medicine; ADMIT Family Medicine; ATTEND Family Medicine
DX: N17.9 Acute kidney failure, unspecified (principal); E83.42 Hypomagnesemia; E87.1 Hypo-osmolality and hyponatremia; E86.0 Dehydration; E83.39 Other disorders of phosphorus metabolism; F17.210 Nicotine dependence, cigarettes, uncomplicated; Z79.899 Other long term (current) drug therapy
CPT/HCPCS: 36415; 80048; 80053; 83735; 84100; 85025; 85060; 96374; 96375; 96376; 99284; A9270; G0378; J2405; J7121

== ENCOUNTER 2023-12-28 13:39 | Inpatient (IN) | payer OTHER ==
[~2023-12-28] VITALS: Ht 177.8 cm; Wt 122.7 kg
[~2023-12-28 13:39] MED LIST changes: +MAGNESIUM100 MG PO; +OXYCODONE HCL5 MG PO
[2023-12-29 16:17] VITALS: BP 130/82
[2024-01-04] MEDS ORDERED: METOPROLOL SUCC25 MG PO (15:53)
[2024-01-05] VITALS (7 sets, daily range): BP systolic 146–156; BP diastolic 81–105
[2024-01-05] MEDS ORDERED: LACTATED RINGER'S 1,000 ML IV SCH ×2 (05:00→11:30)
[2024-01-05] MEDS ORDERED: SUCCINYLCHOLINE IN 0.9% NACL 200 MG/10 ML SYRINGE ONE (06:53)
[2024-01-05] MEDS ORDERED: ROCURONIUM BROMIDE 50 MG/5 ML SYR ONE ×2 (06:53→09:35)
[2024-01-05] MEDS ORDERED: MIDAZOLAM HCL 2 MG/2 ML VIAL ONE (06:53)
[2024-01-05] MEDS ORDERED: LIDOCAINE HCL 4% 5 ML AMP ONE (06:53)
[2024-01-05] MEDS ORDERED: KETOROLAC TROMETHAMINE 30 MG/ML VIAL ONE (06:53)
[2024-01-05] MEDS ORDERED: METOCLOPRAMIDE HCL 10 MG/2 ML SDV ONE (06:53)
[2024-01-05] MEDS ORDERED: fentaNYL citrate 100 MCG/2 ML VIAL ONE (06:53)
[2024-01-05] MEDS ORDERED: propofoL 200 MG/20 ML VIAL ONE (06:53)
[2024-01-05] MEDS ORDERED: LACTATED RINGER'S 1,000 ML IV ONE ×3 (06:53→10:09)
[2024-01-05] MEDS ORDERED: SUGAMMADEX SODIUM 200 MG/2 ML ML ONE (06:53)
[2024-01-05] MEDS ORDERED: FAMOTIDINE 20 MG/ 2 ML VIAL ONE (06:53)
[2024-01-05] MEDS ORDERED: DEXAMETHASONE SOD PHOS 4 MG/ML VIAL ONE (06:53)
[2024-01-05] MEDS ORDERED: ondansetron HCL 4 MG/2 ML VIAL ONE (06:53)
[2024-01-05] MEDS ORDERED: CEFAZOLIN SODIUM 3 GM/30 ML SYR IV SCH ×2 (07:00→14:00)
[2024-01-05] MEDS ORDERED: LIDOCAINE HCL 1% 5 ML SDV INJ ONE (07:00)
[2024-01-05] MEDS ORDERED: HEParin SOD (PORCINE) 5,000 UNIT/0.5 ML SYR SUB-Q SCH (07:00)
[2024-01-05] MEDS ORDERED: IBLOOD GLUCOSE TEST STRIP 1 EA TEST VI PRN ×2 (07:00→11:30)
[2024-01-05] MEDS ORDERED: CEFAZOLIN SODIUM 2 GM/20 ML SYR IV SCH (07:00)
[2024-01-05] MEDS ORDERED: HYDROCORTISONE SOD SUCCINATE 100 MG/2 ML VIAL ONE (08:31)
[2024-01-05] MEDS ORDERED: DIGOXIN 500 MCG/2 ML AMP ONE (08:31)
[2024-01-05] MEDS ORDERED: fentaNYL citrate 50 MCG/ML SDV ONE (11:22)
[2024-01-05] MEDS ORDERED: FAMOTIDINE 20 MG/ 2 ML VIAL IV SCH (11:28)
[2024-01-05] MEDS ORDERED: METOCLOPRAMIDE HCL 10 MG/2 ML SDV IV PRN (11:30)
[2024-01-05] MEDS ORDERED: KETOROLAC TROMETHAMINE 30 MG/ML VIAL IV PRN (11:30)
[2024-01-05] MEDS ORDERED: droPERidol 5 MG/2 ML VIAL IV PRN (11:30)
[2024-01-05] MEDS ORDERED: MORPHINE SULFATE 10 MG/ML VIAL IV PRN (11:30)
[2024-01-05] MEDS ORDERED: PROCHLORPERAZINE EDISYLATE 10 MG/2 ML VIAL IV PRN ×2 (11:30)
[2024-01-05] MEDS ORDERED: NALOXONE HCL 0.4 MG SYR IV PRN (11:30)
[2024-01-05] MEDS ORDERED: ACETAMINOPHEN 1,000 MG/100 ML VIAL IV PRN (11:30)
[2024-01-05] MEDS ORDERED: ondansetron HCL 4 MG/2 ML VIAL IV PRN ×2 (11:30)
[2024-01-05] MEDS ORDERED: fentaNYL citrate 50 MCG/ML SDV IV PRN (11:30)
[2024-01-05] MEDS ORDERED: HYDROmorphone HCL 1 MG/ML SYR IV PRN (11:30)
--- NOTE | 2024-01-05 12:31 | NUR ---
01/05/24 1231 Esme Baird 1056 PT ARRIVED IN PACU NON RESPONSIVE TO NOXIOUS STIMULI WITH OPA IN PLACE. CHIN LIFT HELD TO KEEP AIRWAY OPEN. 1106 PT RESPONSIVE. OPA REMOVED. 1110 PT DIAPHORETIC. COOL CLOTH TO FOREHEAD AND COLD AIR ON PT. 1127 C/O ABD PAIN 5/10. FENTANYL 50MCG GIVEN IVP. 1130 OFIRMEV 1GM GIVEN IV. 1132 O2 SATS DROPPED TO 88% ON RA. ENCOURAGED COUGH, DEEP BREATHING WITH NO CHANGE. O2 @ 4L VIA NC PLACED. 1135 O2 SATS INCREASED TO 93-99%. 1147 NO CHANGE IN PAIN LEVEL. FENTANYL 50MCG GIVEN IVP. 1154 PAIN DOWN TO 4/10. MORPHINE 5MG GIVEN IVP. 1200 O2 DECREASED TO 2L WITH SATS 96%. PAIN DOWN TO 3/10. 1215 TO SC ROOM 115. BED PLUGGED IN AND GIRLFRIEND AT BEDSIDE. REPORT GIVEN TO RN.
--- NOTE | 2024-01-05 12:55 | NUR ---
PATIENT TO MED SURG, PATIENT RATES ABD PAIN 3/10. RIGHT ABDOMEN OLD OSTOMY SITE WITH SMALL INCISION THAT IS COVERED WITH ACTICOAT. SMALL AMOUNT OF DRAINAGE NOTED, DRESSING IS OTHERWISE CDI. PATIENT IS SWEATING, BUT SIGNIFICAT OTHER REPORTS THIS IS PATIENTS BASELINE. PATIENT IS SIPPING ON ICE WATER. IV PEPCID GIVEN.
--- NOTE | 2024-01-05 13:52 | NUR ---
UR CLINICAL REVIEW: [facility] [place] [place] FOR GEN SURGERY [facility] 01/05/24 @ 1129 ORDER MATCHES REG CLINICAL FAXED FOR AUTH REVIEW DISCHARGE TO HOME WHEN STABLE 01/07/24
--- NOTE | 2024-01-05 14:09 | NUR ---
PATIENT UP IN CHAIR, LINENS CHANGED. POST OP VITAL #3 COMPLETE AND VITALS ARE STABLE. IV ABX INFUSING.
--- NOTE | 2024-01-05 14:28 | NUR ---
ABE TIN BED AT THIS TIME. CLOTH PRINTER CHARTED VITALS. CALL LIGHT WITHIN REACH, NO FURTHER NEEDS AT THIS TIME.
--- NOTE | 2024-01-05 14:43 | NUR ---
IV ABX INFUSING. PATIENT REPORTS ABD PAIN IS 4/10
--- NOTE | 2024-01-05 14:45 | NUR ---
PATIENT IS BACK IN BED, NO NAUSEA, ANTICIPATING CLEAR LIQUID DIET.
--- NOTE | 2024-01-05 15:09 | NUR ---
PATIENT GIVEN IV TORADOL FOR 4/10 ABD PAIN, PATIENT IS PLANNING TO AMBULATE IN HALLWAY AFTER 30MINUTES. PATIENT IS TOLERATING CLEAR LIQUIDS WITH NO NAUSEA. PATIENT HAS BEEN UP TO BATHROOM TO VOID.
[2024-01-05] MEDS ORDERED: SEVOFLURANE 250 ML BTL INH ONE (15:44)
--- NOTE | 2024-01-05 15:51 | NUR ---
PATIENT UP TO AMBULATE IN HALLWAY.
--- NOTE | 2024-01-05 16:45 | NUR ---
Spoke with Madeline his Life Partner. Children are in the room. All are in good spirits. Pt denies any needs. He is not using any DME and denies any issues getting in or out of his home. He drives and so does Dana. They do not have any financial issues. Pt plans on discharging as soon as he has a BM. Pt and Dana deny any needs for dc.
--- NOTE | 2024-01-05 16:55 | NUR ---
PATIENT IN BED AT THIS TIME. CALL LIGHT WITHIN REACH, NO FURTHER NEEDS AT THIS TIME.
--- NOTE | 2024-01-05 17:02 | NUR ---
DR. OCAMPO IN TO SEE PATIENT. PATIENT RESTING IN BED, ABD PAIN IS 3/10, SCD'S ARE ON.
--- NOTE | 2024-01-05 18:28 | NUR ---
PATIENT IN BED AT THIS TIME. RELOCATION MANAGER CHARTED VITALS AND I&O'S. CALL LIGHT WITHIN REACH, NO FURTHER NEEDS AT THIS TIME.
--- NOTE | 2024-01-05 19:05 | NUR ---
RECIEVED REPORT FROM BRIJESH VARGAS. PATIENT RESTING IN BED. AT BEDSIDE. PATIENT AWAKENED EASILY AND REQUESTED PAIN MEDICATION. PATIENT DENIES ADDITIONAL NEEDS AT THIS TIME. CALL LIGHT IN REACH.
--- NOTE | 2024-01-05 20:20 | NUR ---
IN ROOM TO ADMINISTER MEDICATIONS, SEE E-MAR. PATIENT ASSESSMENT COMPLETED. PATIENT AWAKE IN BED. PATIENT DENIES ADDITIONAL NEEDS AT THIS TIME. FAMILY AT BEDSIDE. CALL LIGHT IN REACH.
--- NOTE | 2024-01-05 22:30 | NUR ---
IN ROOM TO ADMINISTER MEDICATIONS, SEE E-MAR. PATIENT'S PAIN CONTROL IMPROVING. URINAL EMPTIED. PATIENT DENIES ADDITIONAL NEEDS AT THIS TIME. CALL LIGHT IN REACH.
[2024-01-06] VITALS (11 sets, daily range): BP systolic 118–146; BP diastolic 67–81
--- NOTE | 2024-01-06 00:15 | NUR ---
IN ROOM TO ROUND ON PATIENT. PATIENT ASLEEP IN BED. RESPIRATIONS EVEN AND UNLABORED. CALL LIGHT IN REACH.
--- NOTE | 2024-01-06 00:20 | NUR ---
IN ROOM RESPONDING TO CALL LIGHT. IV ABX COMPLETE. PATIENT STATES PAIN IS WELL CONTROLLED AND DENIED NEED FOR PAIN MEDICATION. PATIENT DENIES ADDITIONAL NEEDS AT THIS TIME. CALL LIGHT IN REACH.
--- NOTE | 2024-01-06 01:30 | NUR ---
CPOX ALARMING. SENSOR REPOSITIONED. PT UP TO BR TO VOID 500 ML CLEAR YELLOW URINE WITH MINIMAL SBA. BACK TO BED, CANDIE WELL. VS AND I&O OBTAINED. PT REQUESTING PRN FOR PAIN. NO FURTHER NEEDS. CALL LIGHT IN REACH.
--- NOTE | 2024-01-06 01:34 | NUR ---
IN ROOM TO ADMINISTER PRN PAIN MEDICATION REQUESTED BY PATIENT, SEE E-MAR. PATIENT AWAKE IN BED. ASSESSMENT COMPLETED. PATIENT DENIES PASSING FLATUS. DRESSING TO SURGICAL SITE INTACT WITH NO CHANGE IN OUTPUT FROM PRIOR ASSESSMENT. PATIENT DENIES ADDITIONAL NEEDS AT THIS TIME. CALL LIGHT IN REACH.
--- NOTE | 2024-01-06 05:39 | NUR ---
IN ROOM RESPONDING TO CALL LIGHT. PATIENT REQUESTING PRN PAIN MEDICATION. MEDICATIONS ADMINISTERED, SEE E-MAR. PATIENT AWAKE IN BED. DENIES ADDITIONAL NEEDS AT THIS TIME. CALL LIGHT IN REACH.
--- NOTE | 2024-01-06 07:05 | NUR ---
REPORT RECEIVED FROM BRIJESH DELGADO AND BRIJESH SAEZ. PT RESTING SUPINE IN BED, EYES CLOSED, RR EVEN AND UNLABORED. CALL LIGHT AND PERSONAL BELONGINGS IN REACH.
--- NOTE | 2024-01-06 08:15 | NUR ---
PATIENT IN CHAIR AT THIS TIME. CALL LIGHT WITHIN REACH, NO FURTHER NEEDS AT THIS TIME.
--- NOTE | 2024-01-06 08:23 | NUR ---
THIS RN REVIEWED BOAZ, RN SHIFT SCREENING DOCUMENTATION AT THIS TIME.
--- NOTE | 2024-01-06 08:27 | NUR ---
MEDICATION ADMINISTRATION PER MAR AND ASSESSMENT COMPLETE. PT IS UP IN RECLINER WITH BLE ELEVATED, PTs SO IS PRESENT IN THE ROOM. PT IV FLUSHES WNL. LUNG SOUNDS CLEAR THROUGHOUT, HEART TONES HEARD WNL. PT BOWEL TONES ACTIVE IN ALL FOUR QUADRANTS, INCISIONAL PAIN TO RLQ. INCISIONAL DRESSING DRY AND INTACT, RED SHADOWING NOTED IN SMALL AMOUNT. PTs ABDOMEN FEELS SLIGHTLY DISTENDED BUT PT STATES THIS IS HIS NORMAL. NO NAUSEA AT THIS TIME, NO FALTULENCE OR BOWEL MOVEMENT YET. PT PULSES FELT 2+ IN BUE, 1+ IN BLE. PTs BILAT FEET AND ANKLES HAVE TRACE EDEMA, PT ALSO STATES HE FEELS HIS FEET AND ANKLES ARE MILDLY EDEMATOUS. PT REPORTING ABD PAIN IS A 3/10 RIGHT NOW, NO REQUEST FOR PRN PAIN MEDICATIONS OR OTHER INTERVENTIONS. BREAKFAST TRAY ARRIVES, PT NOT REQUESTING TRAY AT THIS TIME. NO OTHER NEEDS AT THIS TIME, CALL LIGHT AND PERSONAL BELONGINGS IN REACH.
--- NOTE | 2024-01-06 09:08 | NUR ---
THIS RN REVIEWED BOAZ, RN MEWS DOCUMENTATION AT THIS TIME.
--- NOTE | 2024-01-06 09:24 | NUR ---
PATIENT IS LYING IN THE RECLINER WITH BLE ELEVATED AND IS LOOKING ON THEIR PHONE. PATIENT SIGNIFICANT OTHER IS SITTING UPRIGHT IN THE BED. PATIENT IS REQUESTING TYLENOL AT THIS TIME. PATIENT STATED NO FURTHER NEEDS AT THIS TIME. CALL LIGHT AND PERSONAL BELONGINGS ARE WITHIN REACH.
--- NOTE | 2024-01-06 09:35 | NUR ---
VISITED DURING SPIRITUAL CARE ROUNDS. PT SUPPORTED BY IN ROOM. BOTH IN GOOD SPIRITS, DENIED IMMEDIATE NEEDS, DECLINED OFFER OF VISIT FROM CALENDER TENDER. STEAM PRESSER PROVIDED SUPPORTIVE PRESENCE, HOSPITALITY, PRAYER. PT AND EXPRESSED GRATITUDE.
--- NOTE | 2024-01-06 09:42 | NUR ---
PRN IV ACETAMINOPHEN INFUSING AT THIS TIME FOR PATIENT RATING PAIN 5/10 IN THE ABDOMEN. PATIENT WITH SIGNIFICANT OTHER SITTING IN THE BED AT THIS TIME. PATIENT STATED NO FURTHER NEEDS, CALL LIGHT AND PERSONAL BELONGINGS ARE WITHIN REACH.
--- NOTE | 2024-01-06 09:58 | NUR ---
IN TO DISCONNECT PRN PAIN MEDICATION HANGING. IV FLUSHES WNL. NERISSA FROM CASE MANAGEMENT ARRIVES TO VISIT. PT REPORTS PRN PAIN MEDICATION IS EFFECTIVE, CURRENTLY REPORTING NO PAIN. PT ALSO REPORTING THAT HE IS HAVING FLATULENCE. NO OTHER NEEDS AT THIS TIME, CALL LIGHT AND PERSONAL BELONGINGS IN REACH.
[2024-01-06] MEDS ORDERED: HYDROmorphone HCL 2 MG TAB PO PRN (10:15)
[2024-01-06] MEDS ORDERED: PANTOPRAZOLE SODIUM 40 MG TABEC PO SCH (10:15)
[2024-01-06] MEDS ORDERED: ACETAMINOPHEN 500 MG TAB PO PRN (10:15)
[2024-01-06] MEDS ORDERED: IBUPROFEN 600 MG TAB PO PRN (10:15)
--- NOTE | 2024-01-06 10:44 | NUR ---
PATIENT IN CHAIR AT THIS TIME. FOUNDER CHAIRMAN AND CHIEF CREATIVE OFFICER CHARTED VITALS AND I&O'S. CALL LIGHT WITHIN REACH, NO FURTHER NEEDS AT THIS TIME.
--- NOTE | 2024-01-06 11:00 | OR ---
[facility] [address], [place] [address] Signed DATE OF OPERATION: 01/05/2024 SURGEON: Florentino Ocampo MD PREOPERATIVE DIAGNOSES: 1. Loop ileostomy. 2. History of colo-urachal fistula requiring urachal resection, sigmoid resection and coloproctostomy with secondary finding of coloproctostomy leak requiring repair and loop ileostomy for diversion. 3. Morbid obesity. POSTOPERATIVE DIAGNOSES: 1. Loop ileostomy. 2. History of colo-urachal fistula requiring urachal resection, sigmoid resection and coloproctostomy with secondary finding of coloproctostomy leak requiring repair and loop ileostomy for diversion. 3. Morbid obesity. PROCEDURE: Takedown of loop ileostomy with segmental small bowel resection and [id number] functional end-to-end ileoileostomy. ANESTHESIA: General endotracheal; Florentino Muñoz CRNA and local 10 mL of 0.25% Marcaine with epinephrine. INDICATION: This morbidly obese white man is a patient of Dr. Franklin. In this past year, he had findings of an infected urachal cyst related to a colo-urachal fistula requiring partial resection of the bladder and urachal cyst in continuity with the sigmoid colon. The perforation and fistula were likely related to diverticular disease rather than malignancy. The coloproctostomy was performed, but he did suffer a leak from this requiring reexploration, repair of the very small leak including omental patch and a diverting loop ileostomy for protection of the anastomosis. He has had good function of the ileostomy. Contrast study antegrade through the defunctionalized limb of the loop ileostomy showed no evidence of leakage or stricture at the coloproctostomy site. He is now to undergo takedown of the loop ileostomy. He has significant abdominal obesity, but it is noted that operative approach through the ileostomy site itself will likely be possible without need for midline laparotomy. Electronically Signed By: FLORENTINO OCAMPO MD 01/06/24 1100 PATIENT NAME: NANCY HI OPERATIVE REPORT DATE OF : 75 REPORT #: [id number] PHYSICIAN: FLORENTINO OCAMPO MD PCP: RICARDO FRANKLIN DO REPORT IS CONFIDENTIAL AND NOT TO BE RELEASED WITHOUT AUTHORIZATION [facility] [address] [place] [id number] Signed The risk of bleeding, infection, anastomotic failure, and other unforeseen complications was reviewed with the patient and his significant other. They understand and wished to proceed. FINDINGS: The loop ileostomy was quite healthy. It was a relatively long segment within the subcutaneous space. It was ultimately freed up entirely and was completely viable. Resection of portion of small bowel allowing for a [id number] functional end-to-end ileoileostomy was undertaken. Adhesions within the abdominal cavity were freed up as well. The defect in the abdominal wall was secured with two layers, one of #1 PDS for the posterior fascial layer and attendant peritoneum and another with #1 Prolene for the muscle and fascial layer itself. There were no complications. PROCEDURE IN DETAIL: The patient was brought to the operating room, given a general endotracheal anesthetic. He had somewhat difficult airway for intubation, it was accomplished safely. A Murrell catheter was placed once he was fully anesthetized. The abdomen was clipped and prepared with a Betadine based solution. His bowel prep consisted primarily of a low-fiber diet. There was no solid matter from the ileostomy itself. An Ioban was applied over the abdominal wall initially. Incision was made around the right-sided ileostomy with a 15 blade. Dissection carried through the subcutaneous tissue with electrocautery. An Allis clamp was used to occlude the end of the functional ileostomy. There is no significant egress of enteric content through the course of the operation. Using electrocautery, the subcutaneous tissue was dissected around the loop itself deep into the abdominal wall fatty layer ultimately identifying the fascia of the abdominal wall itself. The peritoneal sac was incised and the abdomen was entered. Meticulous care was maintained to avoid injury to the bowel. Ultimately, the bowel segment could be withdrawn from the abdominal cavity. Additional adhesions were freed with sharp dissection. As would be expected the distal end of the loop ileostomy was a different caliber than the proximal end. Care was taken to identify viable bowel proximally and distally anticipating anastomosis. The mesentery to the distal loop itself was incised with electrocautery and the mesenteric vessels secured with hemostats and ligated with 2-0 silk ties. 80 mm LITZY stapling device was used to transect the ends of the bowel and the segment of ilium including the previous ostomy site passed for permanent pathology. Alignment of the two limbs of the ileum was undertaken with interrupted 3-0 silk suture to provide for a [id number] functional end-to-end anastomosis. The corner of the stapled end of bowel on each loop was excised with scissors and secured with Electronically Signed By: FLORENTINO OCAMPO MD 01/06/24 1100 PATIENT NAME: NANCY HI OPERATIVE REPORT DATE OF : 75 REPORT #: [id number] PHYSICIAN: FLORENTINO OCAMPO MD PCP: RICARDO FRANKLIN DO REPORT IS CONFIDENTIAL AND NOT TO BE RELEASED WITHOUT AUTHORIZATION [facility] [address], [place] [address] Signed electrocautery. An 80 mm LITZY stapling device was passed down each limb with all due care aligning the bowel loops optimally. The 80 mm stapler was used to provide transection and anastomosis. Internal inspection showed no sign of bleeding. The mesentery to each segment of bowel was well preserved and unharmed by the stapler device. A portion of the staple line was excised and the open end of the loops was secured with interrupted 3-0 Vicryl suture followed by interrupted 3-0 silk suture. Staple lines were oversewn with interrupted 3-0 silk as well. The anastomosis was palpated and found to be widely patent and appeared completely viable. A few 3-0 silks were used in the crotch of the staple line itself for security. Bowel was replaced into the abdominal cavity. Closure of the fascial defect was then undertaken. The posterior sheath and its attended peritoneal were reapproximated with running 0 PDS suture. The muscular layers were closed in a vertical configuration with running #1 PDS suture after irrigation. 10 mL of 0.25% Marcaine with epinephrine was injected locally. Irrigation was undertaken copiously and Radha's layer was reapproximated with interrupted 3-0 Vicryl and the skin loosely reapproximated with stapling device. An Acticoat dressing was applied. He was ultimately extubated and transferred to recovery room in good condition and he suffered no complication. Sponge, needle, and instrument counts reported as correct x3. MD GERALD Do/NITO /[id number] cc: Ricardo Franklin DO Copies: RICARDO FRANKLIN DO ~ Electronically Signed By: FLORENTINO OCAMPO MD 01/06/24 1100 PATIENT NAME: NANCY HI OPERATIVE REPORT DATE OF : 75 REPORT #: [id number] PHYSICIAN: FLORENTINO OCAMPO MD PCP: RICARDO FRANKLIN DO REPORT IS CONFIDENTIAL AND NOT TO BE RELEASED WITHOUT AUTHORIZATION
--- NOTE | 2024-01-06 11:22 | NUR ---
THIS RN REVIEWED BOAZ, RN HOURLY ROUNDING DOCUMENTATION AT THIS TIME.
--- NOTE | 2024-01-06 11:40 | NUR ---
Spoke with Ch[facility]. They deny any needs. Pt is passing gas, but denies having a bowel movement.
--- NOTE | 2024-01-06 12:00 | NUR ---
PT IS AMBULATING IN THE [facility] WITH .
--- NOTE | 2024-01-06 14:16 | NUR ---
SECOND ASSESSMENT COMPLETE. PT UP IN RECLINER WITH BLE ELEVATED, MULTIPLE VISITORS PRESENT IN ROOM. PT REPORTS CONTINUING TO HAVE FALTULENCE, HE ATTEMPTED TO HAVE A BOWEL MOVEMENT WITH NO SUCCESS. BOWEL TONES ACTIVE IN ALL FOUR QUADRANTS, PT REPORTS FEELING A LITTLE MORE BLOATED AT THIS TIME. PT ENCOURAGE TO CONTINUE AMBULATING HE HAS BEEN. PT REPORTS PAIN IS CURRENTLY A 4/10, DENIES ANY INTERVENTION AT THIS TIME. DRESSING IN RLQ IS STILL INTACT AND DRY BUT HAS INCREASED RED SHADOWING COMPARED TO THIS MORNING. NO OTHER NEEDS AT THIS TIME, CALL LIGHT AND PERSONAL BELONGINGS IN REACH.
--- NOTE | 2024-01-06 14:32 | NUR ---
DR OCAMPO NOTIFIED OF INCREASED INCISION DRAINAGE AFTER PT HAD A SMALL BOWEL MOVEMENT. DR OCAMPO GIVES VERBAL ORDER TO REMOVE DRESSING AND REPLACE WITH 4X4 GAUZE AND OPSITE TO ALLOW IT TO DRAIN. CHANGE DRESSING NEEDED, NOTIFIED DR OCAMPO FOR ANY PURULENT/INFECTIOUS DRAINAGE.
--- NOTE | 2024-01-06 14:59 | NUR ---
PT DRESSING CHANGED. WOUND CLOSED WITH MONI, NO REDNESS OR ERYTHEMA NOTED, DRAINAGE IS SANGUINEOUS. THREE 4X4 GAUZE APPLIED, COVERED IN OPSITE. PT TOLERATES WELL. PRN PO DILAUDED ADMINISTERED PER APR FOR PAIN 08/09, PT EDUCATED ON MEDICATION. PT VERBALIZES UNDERSTANDING. ICE PACK ALSO SUPPLIED. PT HAS SEVERAL VISITORS PRESENT IN ROOM. NO OTHER NEEDS AT THIS TIME, CALL LIGHT AND PERSONAL BELONGINGS IN REACH.
--- NOTE | 2024-01-06 15:23 | NUR ---
PATIENT IN BED AT THIS TIME. RN CHARTED VITALS AND I&O'S. CALL LIGHT WITHIN REACH, NO FURTHER NEEDS AT THIS TIME.
--- NOTE | 2024-01-06 16:37 | NUR ---
PRN MOTRIN ADMINISTERED BY BRIJESH SANDRA. RLQ GAUZE DRESSING IS CLEAN, DRY, AND INTACT. PATIENT IS NOW LYING IN BED. PATIENT ENCOURAGED TO LET THE PAIN MEDICATION KICK IN AND THEN TO AMBULATE IN THE HALLWAYS AFTER DINNER. PATIENT AND HIS SIGNIFICANT OTHER EXPRESSED UNDERSTANDING. PATIENT STATED NO FURTHER NEEDS AT THIS TIME. CALL LIGHT AND PERSONAL BELONGINGS ARE WITHIN REACH.
--- NOTE | 2024-01-06 17:49 | NUR ---
PATIENT IS AMBULATING INDEPENDENTLY IN THE HALLWAY ON THE MEDICAL-SURGICAL FLOOR WITH HIS SIGNIFICANT OTHER.
--- NOTE | 2024-01-06 18:25 | NUR ---
PATIENT SITTING UP IN BED WATCHING TV, IN ROOM. VITALS AND I&O'S DONE AND CHARTED. CALL LIGHT IN REACH. NO FURTHER NEEDS AT THIS TIME.
--- NOTE | 2024-01-06 18:52 | NUR ---
PTs DRESSING IS SATURATED WITH SEROSANGUINEOUS DRAINAGE. DRESSING CHANGED. THREE 4X4 GAUZE AND OPSITE PLACED. PT TOLERATES WELL. PT REPORTS PAIN IS CURRENTLY A 3/10, REQUESTING NO INTERVENTIONS AT THIS TIME. AT BEDSIDE THROUGHOUT. NO OTHER NEEDS AT THIS TIME, CALL LIGHT AND PERSONAL BELONGINGS IN REACH.
--- NOTE | 2024-01-06 19:25 | NUR ---
REPORT RECIEVED FROM DAY SHIFT RN. PATIENT RESTING IN BED. DENIES NEEDS AT THIS TIME. CALL LIGHT IN REACH.
--- NOTE | 2024-01-06 20:48 | NUR ---
KILN HAND OBTAINED VITALS AND I&O. PT STATES NO NEEDS AT THIS TIME. CALL LIGHT WITHIN REACH.
--- NOTE | 2024-01-06 21:02 | NUR ---
PATIENT RESTING IN BED. ASSESSMENT COMPLETE. PATIENT RLQ DRESSING C/D/I. PATIENT DENIES PAIN. IV FLUSHES WNL. PATIENT HAS NO FURTHER NEEDS. CALL LIGHT IN REACH.
--- NOTE | 2024-01-06 22:59 | NUR ---
CALL LIGHT ANSWERED. PATIENT REPORTS 5/10 ABD PAIN. PRN PAIN MEDICATION ADMINISTERED PER PATIENT REQUEST. NO FURTHER NEEDS. CALL LIGHT IN REACH.
[2024-01-07] VITALS (10 sets, daily range): BP systolic 127–146; BP diastolic 80–87
--- NOTE | 2024-01-07 00:42 | NUR ---
PATIENT RESTING IN BED. DENIES NEEDS AT THIS TIME. CALL LIGHT IN REACH.
--- NOTE | 2024-01-07 01:19 | NUR ---
pt RESTING IN THE BED WITH EYES CLOSED. RR EVEN AND UNLABORED. CALL LIGHT WITHIN REACH. REPORT RECEIVED FROM MALIKA COLEY.
--- NOTE | 2024-01-07 03:50 | NUR ---
pt RESTING IN THE BED WITH EYES CLOSED. RR EVEN AND UNLABORED. CALL LIGHT WITHIN REACH.
--- NOTE | 2024-01-07 05:39 | NUR ---
pt RESTING IN THE BED. ASSESSMENT AND VITAL SIGNS DONE. pt DENIES ANY OTHER NEEDS AT THIS TIME. CALL LIGHT WITHIN REACH. BANDAGE HAD MINIMAL DRAINAGE. OPSITE INTACT.
--- NOTE | 2024-01-07 07:09 | NUR ---
REPORT RECEIVED FROM DEPUTY CLERK RN SAM. PATIENT IS LYING IN THE CHAIR WITH BILATERAL LOWER EXTREMITIES ELEVATED. PATIENT IS SITTING ON THE EDGE OF BED. PATIENT AND FAMILY STATED NO FURTHER NEEDS AT THIS TIME. CALL LIGHT AND PERSONAL BELONGINGS ARE WITHIN REACH.
--- NOTE | 2024-01-07 07:50 | NUR ---
0900 MEDICATION ADMINISTERED PER THE EMAR. PATIENT IS SITTING UPRIGHT IN THE CHAIR AT THIS TIMNE. FULL ASSESSMENT COMPLETE AND DOCUMENTED IN THE CHART. PATIENT IS ON ROOM AIR AND LUNG SOUNDS ARE CLEAR BILATERALLY. CARDIAC WITH NORMAL S1 AND S2 ON AUSCULTATION. PULSES ARE STRONG BILATERALLY IN THE RADIAL PULSES AND FAINT IN THE PEDAL PULSES BILATERALLY. TRACE EDEMA NOTED IN BILATERAL LOWER EXTREMITIES. PATIENT IS ON A FULL LIQUID DIET AND BOWEL TONES ARE ACTIV EIN ALL FOUR QUADRANTS. PATIENT HAD A FEW BOWEL MOVEMENTS 01/06/24. PATIENT ABDOMEN IS TENDER ON THE RIGHT SIDE WHEN PALPATING. IV SITE IN THE LEFT WRIST FLUSHED WITH 10 ML NORMAL SALINE AND IS SALINE LOCKED IV DRESSING IS CLEAN, DRY, AND INTACT. SKIN WITH SCARS NOTED ON THE MIDLINE ABDOMEN AND TATTOOS. DRESSING ON THE RLQ WITH GAUZE AND OPSITE IN PLACE. SEROSANGUINOUS DRAINAGE NOTED. PATIENT STATED NO FURTHER NEEDS AT THIS TIME. CALL LIGHT AND PERSONAL BELONGINGS ARE WITHIN REACH.
--- NOTE | 2024-01-07 07:55 | NUR ---
Patient was resting in their chair with eyes closed upon entry. No cares were asked for.
--- NOTE | 2024-01-07 08:05 | NUR ---
VISITED DURING SPIRITUAL CARE ROUNDS. PT SUPPORTED BY IN ROOM. PT VISIBLY UNCOMFORTABLE, SOME SIGNS OF ANXIETY AROUND THAT DISCOMFORT. DIE PRESSER EXPLORED HOPE, PROVIDED SUPPORTIVE PRESENCE, HOSPITALITY, PRAYER, FACILITATED INTERACTION WITH THERAPY ANIMAL. PT AND EXPRESSED GRATITUDE, HOPE.
--- NOTE | 2024-01-07 08:27 | NUR ---
Patient got up and walked two laps on [facility] floor with .
--- NOTE | 2024-01-07 08:36 | NUR ---
PATIENT IS LYING IN THE CHAIR WITH BILATERAL LOWER EXTREMITIES ELEVATED. PATIENT IS SITTING ON THE BED. PATIENT IS WAITING TO TAKE A SHOWER. ANKIT BASSETT WRAPPING THE PATIENTS IV AND GETTING READY FOR A SHOWER. PATIENT STATED NO FURTHER NEEDS AT THIS TIME. CALL LIGHT AND PERSONAL BELONGINGS ARE WITHIN REACH.
[2024-01-07] MEDS ORDERED: IBU-200200 MG PO (08:39)
--- NOTE | 2024-01-07 08:39 | NUR ---
MED REC COMPLETE
--- NOTE | 2024-01-07 08:53 | NUR ---
UR CONCURRENT CLINICAL REVIEW: [facility] INPT CRITERIA FOR GEN SURGERY [facility] STAGE 3 DISCHARGE [facility] THIS AM NEW [facility] INPT 01/05/24 @ 1129 ORDER MATCHES REG CLINICAL FAXED FOR AUTH REVIEW DISCHARGE TO HOME WHEN STABLE 01/10/24
--- NOTE | 2024-01-07 09:03 | NUR ---
Patient requested to take a shower. Linens were changed and a clean gown given. Tray was removed and intake measured. Patient requested no other cares.
--- NOTE | 2024-01-07 09:36 | NUR ---
PATIENT IS LYING IN THE CHAIR WITH BLE ELEVATED. PATIENT AND CASE MANAGEMENT IS IN THE ROOM AT THIS TIME. CALL LIGHT AND PERSONAL BELONGINGS ARE WITHIN REACH.
--- NOTE | 2024-01-07 10:30 | NUR ---
Spoke with Joselo. No needs wants to go home, waiting to visit with Dr. Gabriel.
--- NOTE | 2024-01-07 11:11 | NUR ---
PATIENT IS LYING IN THE CHAIR WITH EYES CLOSED AND RESPIRATIONS ARE EVEN AND UNLABORED. PATIENT IS SITTING ON THE BED AND STATED THEY HAD NO NEEDS AT THIS TIME. CALL LIGHT AND PERSONAL BELONGINGS ARE WITHIN REACH.
--- NOTE | 2024-01-07 12:36 | NUR ---
PRN MOTRIN ADMINISTERED FOR PAIN RATED 5/10 IN THE RIGHT SIDE OF THE ABDOMEN. RLQ DRESSING CHANGED DUE TO DRESSING BEING SATURATED WITH SEROSANGUINOUS DRAINAGE. PATIENT TOLERATED DRESSING CHANGE WELL. PATIENT ENTERED THE ROOM AT THIS TIME. PATIENT STATED NO FURTHER NEEDS AT THIS TIME. CALL LIGHT AND PERSONAL BELONGINGS ARE WITHIN REACH.
--- NOTE | 2024-01-07 13:45 | NUR ---
Spoke with Dr. Gabriel. Pt will dc tomorrow. No needs for dc.
--- NOTE | 2024-01-07 14:13 | NUR ---
RN ROUNDING WITH SURGEON - PT REPORTS FORMED BM AND ADEQUATE PAIN CONTROL. SURGICAL SITE VISUALIZED, WNL. DIET ADVANCED. POC TO DC HOME TOMORROW IF TOLERATING REGULAR DIET.
--- NOTE | 2024-01-07 15:01 | NUR ---
Patient got up and walked two laps around [facility] floor with next to them.
--- NOTE | 2024-01-07 15:01 | NUR ---
PT AMBULATING IN HALLWAY WITH SPOUSE.
--- NOTE | 2024-01-07 16:15 | NUR ---
RN IN ROOM ROUNDING - PT REPORTS LOOSE BM. REQUEST PAIN MEDICATION FOR 5/10 PAIN, TYLENOL ADMINISTERED. CALL LIGHT IN REACH, DENIES FURTHER NEEDS.
--- NOTE | 2024-01-07 18:20 | NUR ---
RN ROUNDING ON PT - RESTING IN CHAIR WATCHING TV. PT DENIES INCREASED PAIN OR NAUSEA AFTER DINNER OF REGULAR DIET. PT REPORTS LOOSE BM AFTER DINNER, DENIES PAIN WITH MOVEMENT. CALL LIGHT IN REACH.
--- NOTE | 2024-01-07 19:10 | NUR ---
RECEIVED REPORT FROM BRIJESH WHITT. PT UP IN RECLINER, ON THE PHONE. DENIES NEEDS. CALL LIGHT WITHIN REACH.
--- NOTE | 2024-01-07 20:15 | NUR ---
PT RESTING COMFORTABLY IN BED. REPORTS RIGHT ABD PAIN 5/10-MEDICATED W/ PRN PO DILAUDID PER EMAR. VSS. LSC. HRR. BTA. REPORTS (+) FLATUS AND LOOSE BM'S TODAY. DENIES NAUSEA. ABD TENDER TO RIGHT SIDE, MILDLY DISTENDED. RUQ AND DRSG CDI. CANDIE GEN DIET. VOIDS WNL. LW SL SOME DISCOMFORT W/ INITIAL FLUSH, NO OTHER SYMPTOMS. SCD'S IN PLACE. IND IN ROOM W/ AMBULATION.
--- NOTE | 2024-01-07 21:23 | PATH ---
[facility] [address] [facility] [place] [place] [address] Signed SPECIMEN(S): A SEGMENT OF ILEUM SPECIMEN SOURCE: A. SEGMENT OF ILEUM CLINICAL HISTORY: Status post 4 months right-sided loop ileostomy FINAL PATHOLOGIC DIAGNOSIS: Segment of ileum: - Segment of ileal cutaneous anastomosis, consistent with features seen in ileostomy. - Features of chronic inflammation with vascular congestion and extravasation of red blood cells are identified. TWK MICROSCOPIC EXAMINATION: Histologic sections of all submitted blocks are examined by light microscopy. These findings, together with the gross examination, support the pathologic diagnosis. GROSS DESCRIPTION: The specimen, labeled and designated "Rosa Maria Hi, per requisition segment of ileum," is received in formalin and consists of a 7.2 cm in length by 4.1 cm in circumference segment of small intestine, orientation not specified. The serosal surface is pink-purple and smooth with a moderate amount of attached yellow lobulated adipose. There is a 3 x 2.5 cm ileostomy site that is 3 cm from the margin with the short suture and 4 cm from the margin with the long suture. The mucosa is feliciano with normal mucosal folds. There are no masses or polyps present. The side with the short suture is inked black. Cma sections are submitted in 2 cassettes as follows: (A1) margins., (A2) ileostomy site. AA (under the direct supervision of a pathologist) The Gross Description was prepared using a voice recognition system. The report was reviewed for accuracy; however, sound-alike word errors, addition and/or deletions may occur. If there is any question about this report, please contact Client Services. ADDITIONAL NOTES: PATIENT NAME: NANCY HI PATHOLOGY DATE OF : 75 REPORT #: [id number] PHYSICIAN: MACKENZIE RDZ PCP: SRINI FRANKLIN DO REPORT IS CONFIDENTIAL AND NOT TO BE RELEASED WITHOUT AUTHORIZATION [facility] [address] [facility] [place], [place] [address] Signed Immunohistochemical and/or in situ hybridization studies if performed in this case included appropriate positive controls that reacted as expected. This test was developed and its performance characteristics determined by [facility]. It has not been cleared or approved by the U.S. Food and Drug Administration. The FDA has determined that such clearance or approval is not necessary. This test is used for clinical purposes. It should not be regarded as investigational or for research. [facility] is certified under the Clinical Laboratory Improvement Amendments of 1988 (CLIA) as qualified to perform high complexity clinical laboratory testing. PERFORMING LABORATORY: Technical component was performed by [facility], [address] [place] [id number] (CLIA# [id number]). Professional interpretation was performed by [facility], [address] [place] [address] (CLIA#:[id number]). Diagnostician: Caio Yao MD Pathologist Electronically Signed 01/07/2024 Copies: ~ PATIENT NAME: NANCY HI PATHOLOGY DATE OF : 75 REPORT #: [id number] PHYSICIAN: MACKENZIE RDZ PCP: SRINI FRANKLIN DO REPORT IS CONFIDENTIAL AND NOT TO BE RELEASED WITHOUT AUTHORIZATION
--- NOTE | 2024-01-07 22:47 | NUR ---
PT APPEARS TO BE ASLEEP. NO DISTRESS NOTED. CALL LIGHT WITHIN REACH.
--- NOTE | 2024-01-08 01:12 | NUR ---
PT AWAKE, REPORTS RIGHT ABD PAIN. MEDICATED W/ PRN MOTRIN PER EMAR. DENIES ANY OTHER NEEDS. CALL LIGHT WITHIN REACH.
--- NOTE | 2024-01-08 02:52 | NUR ---
PT SLEEPING SOUNDLY, APPEARS COMFORTABLE. CALL LIGHT WITHIN REACH.
--- NOTE | 2024-01-08 05:09 | NUR ---
PT SLEEPING SOUNDLY. RESP EVEN AND UNLABORED.
[2024-01-08 06:17] VITALS: BP 137/77
[2024-01-08 06:21] VITALS: BP 137/77
--- NOTE | 2024-01-08 06:21 | NUR ---
PT UP IN RECLINER, REQUESTING PAIN MED FOR RIGHT ABD PAIN. PT MEDICATED WITH PRN TYLENOL PER EMAR. FRESH ICE WATER PROVIDED. NO OTHER NEEDS IDENTIFIED.
--- NOTE | 2024-01-08 06:22 | NUR ---
DIRECTOR MARKETING ANALYTICS OBTAINED VITALS AND I&O. PT STATES NO NEEDS AT THIS TIME. CALL LIGHT WITHIN REACH.
--- NOTE | 2024-01-08 07:28 | NUR ---
REPORT RECEIVED FROM DAY SHIFT RN. PATIENT RESTING IN RECLINER WATCHING TV. DRESSING TO RIGHT LOWER QUADRANT IS CDI, SHADOWING NOTED. PATIENT DENIES ANY NEEDS AT THIS TIME. CALL LIGHT WITHIN REACH.
[2024-01-08 09:31] VITALS: BP 133/83
--- NOTE | 2024-01-08 09:33 | NUR ---
PATIENT RESTING IN RECLINER. ABD SOFT NON TENDER, BOWEL TONES ACTIVE X 4 QUADRANTS. DRESSING TO LLQ REMAINS IN TACT AND UNCHANGED. PATIENT REPORTS PASSING GAS, DENIES ANY NAUSSEA. LUNGS CTA. DENIES ANY PAIN AT THIS TIME. NO FURTHER NEEDS CALL LIGHT WITHIN REACH.
--- NOTE | 2024-01-08 09:48 | NUR ---
VISITED DURING SPIRITUAL CARE ROUNDS. PT SUPPORTED BY IN ROOM. BOTH IN GOOD SPIRITS, RELAYED INFORMATION FROM CARE TEAM. ESCALATOR MECHANIC PROVIDED SUPPORTIVE PRESENCE, HOSPITALITY, PRAYER, FACILITATED INTERACTION WITH THERAPY ANIMAL. PT AND EXPRESSED GRATITUDE, HOPE.
--- NOTE | 2024-01-08 10:10 | NUR ---
MD OCAMPO IN TO SEE PATIENT THIS AM.
[2024-01-08] MEDS ORDERED: ACETAMINOPHEN500 MG PO (10:29)
[2024-01-08] MEDS ORDERED: HYDROMORPHONE HC2 MG PO (10:29)
[2024-01-08] MEDS ORDERED: IBUPROFEN600 MG PO (10:29)
[2024-01-08 11:20] VITALS: BP 139/85
--- NOTE | 2024-01-08 11:30 | NUR ---
PATIENT PROVIDED DISCHARGE INSTRUCTIONS. PATIENT ABLE TO VERBALIZE UNDERSTANDING OF DISCHARGE VIA TEACH BACK METHOD. PATIENT DISCHARGING WITH ALL PERSONAL ITEMS IN WHICH HE CAME TO THE HOSPITAL WITH. IV SITE DISCONTINUES WNL. PATIENT ESCORTED VIA WC TO CAR AT DISCHARGE.
--- NOTE | 2024-01-08 11:40 | NUR ---
Spoke with Joselo. He denies needs. Plans on dc today, waiting to speak with Dr. Gabriel.
--- NOTE | 2024-01-09 14:52 | DS ---
[facility] [address], [place] [address] Signed ADMISSION DATE: 01/05/2024 DISCHARGE DATE: 01/08/2024 REASON FOR ADMISSION: Loop ileostomy for takedown. HISTORY: This morbidly obese white man is a patient Dr. 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 There was no evidence of malignancy. A coloproctostomy was performed, but he did suffer a leak from this requiring reexploration and repair of the small leak including omental patch and diverting loop ileostomy for protection of the anastomosis. He has had good function of the ileostomy. Antegrade contrast study through the defunctionalized limb of the loop ileostomy showed no evidence of leakage or stricture at the coloproctostomy site. He is now to undergo takedown of the loop ileostomy. PERTINENT PHYSICAL EXAMINATION: GENERAL: Morbidly obese white man who is in no distress. NECK: Trachea is midline. CHEST: Clear. HEART: Regular without murmur. ABDOMEN: Quite markedly obese, but soft. A midline incision is well healed. A functioning right-sided mid abdominal loop ileostomy is noted. EXTREMITIES: Show no clubbing, cyanosis, or edema. HOSPITAL COURSE: The patient underwent operation on January 05, 2024. Operation was able to be performed through the ostomy site itself. A [id number] ileoileostomy was undertaken by staple technique. The fascial closure included PDS in the peritoneal and posterior fascial wall layer and Prolene in the fascial layer more superficial. The wound was closed loosely with stapling device. His postoperative course was quite unremarkable. He tolerated a clear liquid diet the night of operation, had prompt bowel function within 24 hours and advanced to a regular diet which he has tolerated well. The wound appears to be healing well. There has been some serosanguineous drainage which might be expected under the circumstances. He shows no sign of erythema or other issue. Electronically Signed By: FLORENTINO OCAMPO MD 01/09/24 1452 PATIENT NAME: NANCY HI DISCHARGE SUMMARY DATE OF : 75 REPORT #: [id number] PHYSICIAN: FLORENTINO OCAMPO MD PCP: RICARDO FRANKLIN DO REPORT IS CONFIDENTIAL AND NOT TO BE RELEASED WITHOUT AUTHORIZATION [facility] [address], [place] [address] Signed DISCHARGE MEDICATIONS: His discharge medications will include: 1. Ibuprofen 600 mg p.o. q.6 hours as needed for pain, #60. 2. Hydromorphone (Dilaudid) 2 to 4 mg p.o. q.6 hours as needed for severe pain, #10. 3. Tylenol plain 500 mg two tablets p.o. q.6 hours as needed for pain, #30. FOLLOW-UP PLANS: He will return to see me in approximately 3 to 4 weeks for removal of clips. He is urged to monitor his wound carefully. If erythema or purulence should develop and drainage, he will let me know at which point the clips will be removed and an alternative wound care plan will be outlined including gauze packing. DISCHARGE DIAGNOSES: 1. Diverting loop ileostomy for takedown, status post takedown on January 05, 2024. 2. 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 3. Leakage at the coloproctostomy site requiring re-exploration, repair of leakage, omental patch and diverting loop ileostomy. 4. Morbid obesity. Florentino Ocampo MD /VICTORINOL /[id number] cc: Ricardo Franklin DO Copies: RICARDO FRANKLIN DO ~ Electronically Signed By: FLORENTINO OCAMPO MD 01/09/24 1452 PATIENT NAME: NANCY HI DISCHARGE SUMMARY DATE OF : 75 REPORT #: [id number] PHYSICIAN: FLORENTINO OCAMPO MD PCP: RICARDO FRANKLIN DO REPORT IS CONFIDENTIAL AND NOT TO BE RELEASED WITHOUT AUTHORIZATION
== END 2024-01-08 11:30 | disposition home or self-care (01) | DRG 331 ==
LOC: DSVR 01-05 05:30 → MS 01-05 05:30 → DSVR 01-05 05:30 → MS 01-05 07:30
PROVIDERS: ADMIT Surgery; ATTEND Surgery
PROC: 0DBB0ZZ Excision of Ileum, Open Approach (ICD-10-PCS; principal; 2024-01-05 07:30)
DX: Z43.2 Encounter for attention to ileostomy (principal); E66.01 Morbid (severe) obesity due to excess calories; Z86.19 Personal history of other infectious and parasitic diseases; Z68.38 Body mass index [BMI] 38.0-38.9, adult; Z79.899 Other long term (current) drug therapy; Z87.19 Personal history of other diseases of the digestive system; Z98.890 Other specified postprocedural states
CPT/HCPCS: 00840; A9270; J0131; J0330; J0690; J1100; J1160; J1171; J1644; J1720; J1885; J2250; J2405; J2704; J2765; J3010; J3490; J7121

== ENCOUNTER 2024-04-20 07:46 | Emergency (ER) | payer OTHER ==
[~2024-04-20] VITALS: Ht 177.8 cm; Wt 140.2 kg
[~2024-04-20 07:46] MED LIST changes: +HYDROMORPHONE HC2 MG PO; +IBU-200200 MG PO
[2024-04-20] MEDS ORDERED: VENTOLIN HFA18 GM (07:57)
[2024-04-20 08:49] LABS: BASOPHILS 1.7 % (0-2); EOSINOPHILS 1.3 % (0-6); HEMATOCRIT 35.6 % (35.0-50.0); HEMOGLOBIN 11.1 g/dL (12.0-18.0); LYMPHOCYTES 23.4 % (24-44); MCH 21.4 (27-36); MCHC 31.2 g/dl (30-36); MCV 68.6 fl (81-99); NEUTROPHILS 69.6 % (39-80); PLATELET COUNT 190 K/uL (140-440); RBC 5.19 M/ul (4.3-5.7); RDW 17.7 (10.5-15.0)
[2024-04-20 09:19] LABS: MAGNESIUM 1.9 mg/dL (1.8-2.4)
[2024-04-20 09:21] LABS: ALBUMIN 3.6 g/dL (3.4-5.0); ALBUMIN/GLOBULIN RATIO 0.95 (1.1-2.4); BILIRUBIN, TOTAL 0.4 mg/dL (0.2-1.0); BUN/CREATININE RATIO 12.76 (6.0-28.6); CALCIUM 8.5 mg/dL (8.5-10.1); CREATININE, SERUM 0.94 mg/dL (0.70-1.30); PROTEIN, TOTAL 7.4 g/dL (6.4-8.2)
[2024-04-20] MEDS ORDERED: FUROSEMIDE 40 MG/4 ML VIAL IV ONE (16:00)
[2024-04-20] MEDS ORDERED: ASPIRIN 81 MG CHEW PO ONE (16:30)
[2024-04-20] MEDS ORDERED: ASPIRIN 325 MG TAB PO ONE (16:30)
--- NOTE | 2024-04-20 17:35 | EKG ---
[facility] [address] [facility] [place] [address] Signed Sinus tachycardia Nonspecific T wave abnormality Abnormal ECG When compared with ECG of 24-JUL-2023 04:04, No significant change was found Confirmed by Milton Molina MD ([id number]) on 04/20/2024 5:34:59 PM Electronically Signed By: MILTON MOLINA MD 04/20/24 1735 PATIENT NAME: NANCY HI MATTHEW Electrocardiogram DATE OF : 75 PHYSICIAN: MILTON MOLINA MD REPORT #: [id number] REPORT IS CONFIDENTIAL AND NOT TO BE RELEASED WITHOUT AUTHORIZATION
[2024-04-20] MEDS ORDERED: MORPHINE SULFATE 4 MG/ML VIAL IV ONE (18:15)
[2024-04-20 18:35] VITALS: BP 134/86
--- NOTE | 2024-04-21 14:00 | EKG ---
[facility] [address] [facility] [place] [address] Signed Sinus tachycardia Inferior infarct , age undetermined ST \T\ T wave abnormality, consider lateral ischemia Abnormal ECG When compared with ECG of 20-APR-2024 08:18, Inferior infarct is now present T wave inversion now evident in Lateral leads Confirmed by Milton Molina MD ([id number]) on 04/21/2024 2:00:32 PM Electronically Signed By: MILTON MOLINA MD 04/21/24 1400 PATIENT NAME: NANCY HI MATTHEW Electrocardiogram DATE OF : 75 PHYSICIAN: MILTON MOLINA MD REPORT #: [id number] REPORT IS CONFIDENTIAL AND NOT TO BE RELEASED WITHOUT AUTHORIZATION
== END 2024-04-20 18:35 | disposition short-term general hospital (02) ==
LOC: ED 07:46
PROVIDERS: Emergency Medicine
DX: I21.4 Non-ST elevation (NSTEMI) myocardial infarction (principal); I42.9 Cardiomyopathy, unspecified; F17.200 Nicotine dependence, unspecified, uncomplicated; Z79.899 Other long term (current) drug therapy
CPT/HCPCS: 36415; 71045; 71260; 80053; 83735; 83880; 84484; 85025; 85060; 85379; 93005; 93010; 93306; 96374; 96375; 99285-25; A9270; J1940; J2270; Q9967